=== PATIENT | female | born 2005 | race Caucasian/White ===

== ENCOUNTER 2023-01-15 14:18 | Emergency (ER) | payer OTHER, SELFPAY ==
[2023-01-15 14:29] VITALS: BP 122/83; PULSE 78; RESP 16; TEMP 36.8; O2SAT 98; BMI 31.2
--- NOTE | 2023-01-15 14:43 | ED_ITS ---
HPI - Abdominal Pain General Chief Complaint: Abdominal Pain Stated Complaint: ABD PAIN Time Seen by Provider: 01/15/23 14:32 Source: patient Mode of arrival: walk-in Limitations: no limitations History of Present Illness HPI narrative: 17-year-old female presents with abdominal pain and spent in random spots for the past couple days. She states that it was in her right lower quadrant, but this has resolved and is now in the right upper quadrant. She states that she has been very gassy. She has a Nexplanon and does not have menstrual periods. She complains of chills and a couple episodes of watery diarrhea. Denies fever, back pain, dysuria, n/v, SOB or CP Related Data Home Medications Medication Instructions Recorded Confirmed No Known Home Medications 01/15/23 01/15/23 Allergies Allergy/AdvReac Type Severity Reaction Status Date / Time No Known Drug Allergies Allergy Verified 01/15/23 14:28 Review of Systems ROS Status of ROS 10 or more systems reviewed and unremarkable except as noted in history and below PFSH PFS Social History Smoking status: Light tobacco smoker Exam Narrative Exam Narrative: General: A&Ox3, no distress, talking in full an complete sentences skin: warm, dry, intact head: normocephalic, atraumatic eyes: EOMI nose: nares patent neck: supple, trachea midline respiratory: non-labored extremities: FROM x 4, strength +5/5 abd: soft, NT neuro: A&Ox3 psych: appropriate mood and affect, cooperative Constitutional Vital Signs, click to edit/add: Last Vital Signs Temp 98.3 F 01/15/23 14:29 Pulse 78 01/15/23 14:29 Resp 16 01/15/23 14:29 BP 122/83 01/15/23 14:29 Pulse Ox 98 01/15/23 14:29 O2 Del Method Room Air 01/15/23 14:29 Course Vital Signs Vital signs: Vital Signs Temperature 98.3 F 01/15/23 14:29 Pulse Rate 78 01/15/23 14:29 Respiratory Rate 16 01/15/23 14:29 Blood Pressure 122/83 01/15/23 14:29 Pulse Oximetry 98 01/15/23 14:29 Oxygen Delivery Method Room Air 01/15/23 14:29 Temperature 98.3 F 01/15/23 14:29 Pulse Rate 78 01/15/23 14:29 Respiratory Rate 16 01/15/23 14:29 Blood Pressure 122/83 01/15/23 14:29 Pulse Oximetry 98 01/15/23 14:29 Oxygen Delivery Method Room Air 01/15/23 14:29 MDM - Abdominal Pain MDM Narrative Medical decision making narrative: No acute findings on final read of abdomen x-ray. She does have gas on the x- ray in the area that she is complaining of pain. UA negative. Patient was wa iting for her COVID results and due to the wait time, she left without telling anyone. I was not able to tell her her COVID results or give her discharge instructions. Lab Data Labs: Lab Results 01/15/23 Range/Units 14:50 Urine Color Yellow (YELLOW) Urine Clarity Clear (CLEAR) Urine pH 6.0 (5.0-9.0) Ur Specific [place] 1.025 (1.005-1.025) Urine Protein Negative (NEG/TRACE) mg/dL Urine Glucose (UA) Negative (NEGATIVE) mg/dL Urine Ketones Trace A (NEGATIVE) mg/dL Urine Occult Blood Trace-i (NEGATIVE) Urine Nitrite Negative (NEGATIVE) Urine Bilirubin Negative (NEGATIVE) Urine Urobilinogen 0.2 (0.2-1.0) EU/dL Ur Leukocyte Esterase Negative (NEGATIVE) Urine RBC 0-2 (0-2) #/HPF Urine WBC 0-2 A (NONE SEEN) #/HPF Ur Squamous Epith Cells Few A (NONE/RARE) #/LPF Urine Crystals None seen (None Seen) #/HPF Urine Bacteria Small A (NONE SEEN) #/HPF Urine Casts None seen (NONE SEEN) #/LPF Urine Mucus None seen (NONE SEEN) Ur Culture Indicated? Yes Urine HCG, Qual Negative (NEGATIVE) SARS-CoV-2 (PCR) Negative (NEGATIVE) Discharge Plan Discharge Chief Complaint: Abdominal Pain Clinical Impression: Abdominal pain Qualifiers: Abdominal location: right upper quadrant Qualified Code(s): R10.11 - Right upper quadrant pain Patient Disposition: Home, Self-Care Condition: Good Mode of Transportation: Private Vehicle Prescriptions / Home Meds: No Action No Known Home Medications Instructions: Abdominal Pain (ED) Stand Alone Forms: Portal Instructions Referrals: Physician,Non-Staff, MD [Primary Care Provider] - 1 week
--- NOTE | 2023-01-15 15:00 | XR_ITS ---
[facility] [place] [address] Patient Name: PAUL FERGUSON MRN: [id number] date: 2005 Sex: F Assigned Patient Location: ER Current Patient Location: ER Accession/Order Number: [id number] Exam Date: 01/15/2023 14:55 Report Date: 01/15/2023 15:15 At the request of: SHELTON CLAROS Procedure: XR abdomen 1V EXAMINATION: XR abdomen 1V, [id number] HISTORY: abd pain COMPARISON: None. FINDINGS: Nonobstructive bowel gas pattern. No discrete pneumoperitoneum, pneumatosis, or portal venous gas within the limitations of this single view radiograph. No abnormal soft tissue calcifications. Stool burden is average. Possible pseudoarticulation of the left transverse process of L5 with the sacrum which can be a source of back pain. XR/XR abdomen 1V IMPRESSION: No acute intra-abdominal abnormality demonstrated. Electronically authenticated by: SANJEEV ALEXANDRE Date: 01/15/2023 15:15
[2023-01-15 15:04] LABS: Bilirubin Urine NEGATIVE (NEGATIVE); Blood Urine TRACE-I (NEGATIVE); Clarity Urine CLEAR (CLEAR); Color Urine YELLOW (YELLOW); Glucose Urine UA NEGATIVE (NEGATIVE); Ketones Urine TRACE mg/dL (NEGATIVE); Leukocyte Esterase Urine NEGATIVE (NEGATIVE); Nitrite Urine NEGATIVE (NEGATIVE); Protein Urine NEGATIVE (NEG/TRACE); Specific Gravity Urine 1.025 (1.005-1.025); Urobilinogen Urine 0.2 EU/dL (0.2-1.0)
[2023-01-15 15:29] LABS: Bacteria Urine SMALL #/HPF (NONE SEEN); WBC Urine 0-2 #/HPF (NONE SEEN)
[2023-01-15 15:30] LABS: RBC Urine 0-2 #/HPF (0-2)
[2023-01-15 15:31] LABS: Cast Seen? NONE SEEN #/LPF (NONE SEEN); Crystals Seen? None Seen #/HPF (None Seen); Mucus Urine NONE SEEN (NONE SEEN); Squamous Epithelial Cell Urine FEW #/LPF (NONE/RARE); Urine Culture Indicated YES
[2023-01-15 16:11] LABS: HCG Qualitative Urine* NEGATIVE (NEGATIVE)
[2023-01-15 16:27] LABS: SARS-CoV-2 Ag NEGATIVE (NEGATIVE)
[2023-01-16 14:39] LABS: SARS-CoV-2 NAA INVALID (NOT DETECTE)
== END 2023-01-15 16:37 | disposition home or self-care (01) ==
PROVIDERS: Physician Assistant; Emergency Provider Emergency Medicine
DX: R10.11 Right upper quadrant pain (principal); F17.210 Nicotine dependence, cigarettes, uncomplicated; Z20.822 Contact with and (suspected) exposure to COVID-19; Z97.5 Presence of (intrauterine) contraceptive device
CPT/HCPCS: 74018; 81001; 84703; 87086; 87635; 87811; 99285; U0003

== ENCOUNTER 2023-05-22 20:12 | Emergency (ER) | payer MEDICAID, SELFPAY ==
[2023-05-22 20:15] VITALS: BP 131/87; PULSE 87; RESP 16; TEMP 36.8; O2SAT 98
--- NOTE | 2023-05-22 20:26 | PC.NURSE ---
pt states having slurred speech with numbness in hands, has been to 2 different ER's re: these symptoms and states no dx was given. No slurred speech heard during assessment, pt appears anxious in triage crying, when paper work taken for pt to sign for medical records from other ER's this week pt was much calmer in waiting room.
--- NOTE | 2023-05-22 21:00 | ED.GENADUL1 ---
Documented by User: LEONIDES Be 05/22/23 21:00 HPI - General Adult General Chief complaint: Headache Stated complaint: Headache Time Seen by Provider: 05/22/23 20:54 Source: patient Mode of arrival: walk-in Related Data Home Medications Medication Instructions Recorded Confirmed No Known Home Medications 01/15/23 01/15/23 Allergies Allergy/AdvReac Type Severity Reaction Status Date / Time No Known Drug Allergies Allergy Verified 01/15/23 14:28 PFSH PFSH Social History Smoking status: Light tobacco smoker Exam Constitutional Vital Signs, click to edit/add: Last Vital Signs Temp 98.2 F 05/22/23 20:15 Pulse 87 05/22/23 20:15 Resp 16 05/22/23 20:15 BP 131/87 05/22/23 20:15 Pulse Ox 98 05/22/23 20:15 O2 Del Method Room Air 05/22/23 20:15 Course Vital Signs Vital signs: Vital Signs Temperature 98.2 F 05/22/23 20:15 Pulse Rate 87 05/22/23 20:15 Respiratory Rate 16 05/22/23 20:15 Blood Pressure 131/87 05/22/23 20:15 Pulse Oximetry 98 05/22/23 20:15 Oxygen Delivery Method Room Air 05/22/23 20:15 Temperature 98.2 F 05/22/23 20:15 Pulse Rate 87 05/22/23 20:15 Respiratory Rate 16 05/22/23 20:15 Blood Pressure 131/87 05/22/23 20:15 Pulse Oximetry 98 05/22/23 20:15 Oxygen Delivery Method Room Air 05/22/23 20:15 Medical Decision Making Lab Data Labs: Lab Results 05/22/23 Range/Units 21:52 Urine HCG, Qual Negative (NEGATIVE) Imaging Data CT scan - head: Radiologist's impression: ITS Impressions Head CT 05/22/23 21:33 IMPRESSION: 1. No acute intracranial abnormality. No hemorrhage or mass effect. Electronically authenticated by: RUSSEL HARRELL Date: 05/22/2023 22:22 Discharge Plan Discharge Chief Complaint: Headache Clinical Impression: Headache Patient Disposition: Home, Self-Care Time of Disposition Decision: 22:36 Condition: Good Mode of Transportation: Private Vehicle Prescriptions / Home Meds: No Action No Known Home Medications Instructions: Acute Headache (ED) Stand Alone Forms: Portal Instructions Referrals: Physician,Non-Staff, [Primary Care Provider] - 1 week Documented by User: Mu Barajas MD 05/22/23 22:38 HPI - General Adult General Chief complaint: Headache Stated complaint: Headache Time Seen by Provider: 05/22/23 20:54 History of Present Illness HPI narrative: 17-year-old female presents with numerous complaints. Her main complaint tonight is her headache she's had for several days. It's frontal and there was no trauma or fever or any sort of injury. She's also had ongoing gastrointestinal issues and was at two other emergency departments within the last week. Each of those had negative workups and she had a rectal exam that showed no blood in her stool. She is scheduled to see a [employer] worker for the 1st time on June 05. She told the nurse that her main worry is that she has colon cancer. Related Data Home Medications Medication Instructions Recorded Confirmed No Known Home Medications 01/15/23 01/15/23 Allergies Allergy/AdvReac Type Severity Reaction Status Date / Time No Known Drug Allergies Allergy Verified 01/15/23 14:28 Review of Systems ROS Narrative A ten point review of systems is negative except as noted above. PFSH PFSH Social History Smoking status: Light tobacco smoker Exam Narrative Exam Narrative: Nurses note and vital signs reviewed and patient is not hypoxic. General: The patient appears well and in no apparent distress. Patient is resting comfortably on cart. Skin: Warm, dry, no pallor noted. There is no rash noted. Head: Normocephalic, atraumatic Eye: Normal conjunctiva, no drainage, neck supple, no nuchal rigidity Ears, Nose, Mouth, and Throat: oral mucosa is moist. Nares patent. she was concerned about her left ear. There is no erythema or mass or swelling. Cardiovascular: Regular Rate and Rhythm Respiratory: Patient is in no distress, no accessory muscle use, lungs are clear to auscultation, no wheezing, rales or rhonchi Back: non-tender GI: no tenderness to palpation, no masses appreciated. No rebound, guarding, or rigidity noted. Musculoskeletal: The patient has no evidence of calf tenderness, no pitting edema, symmetrical pulses noted bilaterally Neurological: A&O, normal speech Psychiatric: Cooperative, tearful Constitutional Vital Signs, click to edit/add: Last Vital Signs Temp 98.2 F 05/22/23 20:15 Pulse 87 05/22/23 20:15 Resp 16 05/22/23 20:15 BP 131/87 05/22/23 20:15 Pulse Ox 98 05/22/23 20:15 O2 Del Method Room Air 05/22/23 20:15 Course Vital Signs Vital signs: Vital Signs Temperature 98.2 F 05/22/23 20:15 Pulse Rate 87 05/22/23 20:15 Respiratory Rate 16 05/22/23 20:15 Blood Pressure 131/87 05/22/23 20:15 Pulse Oximetry 98 05/22/23 20:15 Oxygen Delivery Method Room Air 05/22/23 20:15 Temperature 98.2 F 05/22/23 20:15 Pulse Rate 87 05/22/23 20:15 Respiratory Rate 16 05/22/23 20:15 Blood Pressure 131/87 05/22/23 20:15 Pulse Oximetry 98 05/22/23 20:15 Oxygen Delivery Method Room Air 05/22/23 20:15 Medical Decision Making MDM Narrative Medical decision making narrative: CT of brain is negative and she was reassured. She is going to see her gastrointestinal specialist on the prefers. Treatment diagnosis and follow-up were discussed thoroughly with the patient. Differential Diagnosis Differential Diagnosis: general headache, tension headache, sinus infection Medical Records Medical records reviewed: Yes I reviewed the patient's medical records Lab Data Lab results reviewed: Yes I reviewed the patient's lab results Labs: Lab Results 05/22/23 Range/Units 21:52 Urine HCG, Qual Negative (NEGATIVE) Imaging Data CT scan - head: Radiologist's impression: ITS Impressions Head CT 05/22/23 21:33 IMPRESSION: 1. No acute intracranial abnormality. No hemorrhage or mass effect. Electronically authenticated by: RUSSEL HARRELL Date: 05/22/2023 22:22 Discharge Plan Discharge Chief Complaint: Headache Clinical Impression: Headache Patient Disposition: Home, Self-Care Time of Disposition Decision: 22:36 Condition: Good Mode of Transportation: Private Vehicle Prescriptions / Home Meds: No Action No Known Home Medications Instructions: Acute Headache (ED) Stand Alone Forms: Portal Instructions Referrals: Physician,Non-Staff, MD [Primary Care Provider] - 1 week
--- NOTE | 2023-05-22 21:33 | CT_ITS ---
The [address] [address] Patient Name: PAUL FERGUSON MRN: [id number] date: 2005 Sex: F Assigned Patient Location: ER Current Patient Location: Accession/Order Number: [id number] Exam Date: 05/22/2023 00:06 Report Date: 05/22/2023 22:22 At the request of: ELISABETH JEAN Procedure: CT head/brain wo con INDICATION: 17 years old; Female. Headache for one week. Weakness, dizziness, and confusion. TECHNIQUE: CT Head (ax/cor/sag reformats). Ionizing radiation dose reduced via iterative reconstruction/FBP blend and body size kV/mA adjustment. Comparison: None FINDINGS: POSTOPERATIVE CHANGES: None. BRAIN PARENCHYMA: No focal lesions. No mass effect. No midline shift or herniation. No intraparenchymal or extra-axial hemorrhage. Normal cartwright/white differentiation. VENTRICLES/EXTRA-AXIAL SPACES: Normal for patient's age. SINUSES/MASTOIDS: The visualized sinuses are clear. The maxillary sinuses are not entirely visible in this routine CT of the head. Mastoids and middle ears are clear. MSK: No displaced or depressed calvarial fracture. OTHER: No hyperdense intraluminal thrombus. CT/CT head/brain wo con IMPRESSION: 1. No acute intracranial abnormality. No hemorrhage or mass effect. Electronically authenticated by: RUSSEL HARRELL Date: 05/22/2023 22:22
[2023-05-22 22:02] LABS: HCG Qualitative Urine* NEGATIVE (NEGATIVE)
[2023-05-22 22:42] VITALS: BP 122/81; PULSE 80; O2SAT 98
== END 2023-05-22 22:44 | disposition home or self-care (01) ==
PROVIDERS: Emergency Provider Emergency Medicine
DX: R51.9 Headache, unspecified (principal); F17.210 Nicotine dependence, cigarettes, uncomplicated
CPT/HCPCS: 70450; 84703; 99284

== ENCOUNTER 2023-06-26 22:40 | Emergency (ER) | payer BC, SELFPAY ==
[2023-06-26 22:47] VITALS: BP 121/81; PULSE 71; RESP 16; TEMP 36.4; O2SAT 98; BMI 24.6
--- OUTSIDE RECORDS SUMMARY | 2023-06-26 22:49 | XMS_ITS | CCD ---
Author Name Unknown Address [address] [place] [address] Organization [facility] Care Team Providers Care [employer] Member Name Role Phone Rick LOPEZ Primary Care Physician [phone] MARY HARRIS Attending Unavailable MARVIN CUEVAS Referring Unavailable RICK LOPEZ Primary Care Unavailable MARVIN CUEVAS Primary Care Physician Christine KNIGHT Unavailable NO FAMILY, PHYSICIAN Primary Care Provider Unava [facility] [place] Emergency Provider PRANAY VENTURA Attending Unavailable CHRISTINE KNIGHT Attending Unavailable NO FAMILY, PHYSICIAN Primary Care Unavailable America Crow Attending Unavailable America Crow Admitting Unavailable George Mills Attending Unavailable Kan Díaz Attending Unavailable Svitlana Young Attending Unavaila MARVIN Shen Attending Unavailable MARVIN CUEVAS Referring Unavailable MARVIN CUEVAS Attending Unavailable MARVIN CUEVAS Admitting Unavailable Tr Herr Attending Unavailable Allergies Allergy Classification Reported Allergen(s) Allergy Type Date of Onset Reaction(s) Facility (1 source) No Known Medication Allergies; Translations: [No Known Medication Allergies] Propensity to adverse reactions (disorder) [facility] Repository Medications Current Medications Medication Drug Class(es) Dates Sig (Normalized) Sig (Original) dicyclomine hydrochloride 10 mg oral capsule (4 sources) Anticholinergic Start: 05-19-2023 take 1 capsule by mouth three times daily Dicyclomine (Bentyl) 10 mg Capsule Active 10 MG PO Three times daily May 19, 2023 12:00am Start: 04-30-2023 End: 05-07-2023 take 1 capsule by mouth four times daily Bentyl 10 mg Cap 10 mg = 1 cap(s), Oral, QID, X 7 day(s), # 28 cap(s), Refills(s) 0, Pharmacy: [facility] #[id number], 156, cm, 04/29/23 23:04:00 EST, Height/Length Dosing, 65, kg, 04/29/23 23:04:00 EST, Weight Dosing Start Date: 04/30/23 Stop Date: 05/07/23 Status: Ordered Start: 11-21-2021 End: 11-28-2021 take 1 capsule by mouth four times daily as needed Bentyl 10 mg Cap 10 mg = 1 cap(s), Oral, QID, PRN Irritable bowel symptoms, X 7 day(s), # 30 cap(s), Refills(s) 0, Pharmacy: [facility] #[id number], 152, cm, 11/20/21 23:17:00 EDT, Height/Length Dosing, 68, kg, 11/20/21 23:17:00 EDT, Weight Dosing Start Date: 11/21/21 Stop Date: 11/28/21 Status: Ordered hydrOXYzine hydrochloride 25 mg oral tablet (1 source) Antihistamine Start: 05-19-2023 take 25 mg by mouth three times daily Hydroxyzine Hcl Active 25 MG PO Three times daily May 19, 2023 12:00am ondansetron 4 mg disintegrating oral tablet (1 source) Serotonin-3 Receptor Antagonist Start: 05-19-2023 take 4 mg by mouth every eight hours Ondansetron Active 4 MG PO Q8H 9 3 May 19, 2023 12:00am Zofran ODT 4 mg Tab-Dis (8 sources) Start: 11-21-2021 take 1 tablet by mouth every eight hours as needed for nausea Zofran ODT 4 mg Tab-Dis 4 mg = 1 tab(s), Oral, q8hr, PRN Nausea/Vomiting, # 16 tab(s), Refills(s) 0, Pharmacy: [facility] #[id number], 152, cm, 11/20/21 23:17:00 EDT, Height/Length Dosing, 68, kg, 11/20/21 23:17:00 EDT, Weight Dosing Start Date: 11/21/21 Status: Ordered Problems Problem Classification Problem Date Documented Da te Episodic/Chronic Abdominal pain (2 sources) Abdominal pain; Translations: [Unspecified abdominal pain] Onset: 11-21-2021 Episodic Anxiety disorders (1 source) Anxiety disorder; Translations: [Anxiety disorder, unspecified] Onset: 04-30-2023 Chronic Cardiac dysrhythmias (1 source) Palpitations; Translations: [Palpitations] Onset: 04-30-2023 Episodic Fluid and electrolyte disorders (1 source) Hypokalemia; Translations: [Hypokalemia] Onset: 11-21-2021 Episodic Malaise and fatigue (1 source) Other fatigue; Translations: [Other fatigue] Onset: 05-19-2023 Episodic Menstrual disorders (1 source) Irregular periods; Translations: [Irregular menstruation, unspecified] 05-19-2023 Chronic Nausea and vomiting (1 source) Nausea; Translations: [Nausea] Onset: 11-21-2021 Episodic Nonspecific chest pain (6 sources) Chest pain; Translations: [Chest pain, unspecified] Onset: 06-03-2022 Episodic Other endocrine disorders (8 sources) Hypoglycemia 03-08-2021 Chronic Other gastrointestinal disorders (1 source) Diarrhea; Translations: [Diarrhea, unspecified] 05-19-2023 Episodic Other gastrointestinal disorders (1 source) Diarrhea, unspecified; Translations: [Diarrhea, unspecified] Onset: 05-19-2023 Episodic Other skin disorders (8 sources) Acne 03-08-2021 Episodic Substance-related disorders (1 source) Smoker 04-29-2023 Chronic Comment on above: Added secondary to d ocumentation in Social History. Viral infection (1 source) Viral disease; Translations: [Viral infection, unspecified] Onset: 04-30-2023 Episodic Results Test Name Value Interpretation Reference Range Facility Gastroenterology Office/Clin ic Noteon 06-05-2023 Gastroenterology Office/Clinic Note Chief Complaint abdominal pain HPI Staff Patient is a 17 year old female who presents today for a f/u from [facility] 05/16/23 for abdominal pain, chest pain and RUQ pain. C/o - unexplained menstrual bleeding, last period was abnormally heavy. Will have random clenching of urine/feces. Urgency with urine and stool. Abdomen/stomach pain (randomly). Alternating constipation/diarrhe a. Hx of childhood constipation. She says sometimes she feels like her stomach is pulsing . Excessive stomach noises. Slight weight loss. Fatigue/lightheadedn ess. Loss of appetite. Bloating after eating. Recal burning on occasion. Random maroon/dark red blood when wiping. Recently she has had some gugling in her throat that feels like a burp that will not come out. ED note: ED Course: 17-year-old female reports to the emergency department with chief complaint of an anxiety like state. Reports this has been ongoing issue for her. Reports very fatigued as well. States he is not following up with any primary care doctor. Physical exam of the patient, the patient is very hysterical throughout the examination. No acute findings on physical exam. She is very anxious. Due to her concerns, we did do some basic labs as well as chest x-ray. Lab reviewed and noted. No acute changes seen. Chest x-ray negative as well. We did give her Ativan, which did greatly improve her symptoms. Patient reported and stated that she did feel much improved. Due to her symptoms, discussed that we will start her on hydroxyzine to see if this helps with any type of anxiety for her. Patient also prescribed Bentyl for her abdominal pain but states that is chronic for her. Wants a GI follow-up. Abdominal pain: When did you first have this pain: Over the last year - worse in the last few weeks Quality (sharp, dull): feels like periods cramps - sometimes gets right sides sharp pain - sometimes a burning sensation under her RUQ ribcage area. Constant or comes or go: comes and goes location and radiation: all over abdomen Relation to food: unknown - usually pain in more at night Improving or worsening factors factors: When she lays down at night it is usually worse. Previous work up: EGD: no Colonoscopy: no Imaging: Chest XR in ER: IMPRESSION: There are no acute cardiopulmonary changes. CT abdomen/pelvis 01/18/23: IMPRESSION: Possible mild nonspecific colitis versus colonic underdistention. Laboratory Results CBC CMP PT PTT Basophil Absolute: 0 E9/L (05/16/23) A/G Ratio: 2 (04/29/23) INR: 1 (04/29/23) PTT: 38.8 second(s) High (04/29/23) Basophil Auto: 0.4 % (05/16/23) AGAP: 14 mEq/L (05/16/23) PT: 11.4 second(s) (04/29/23) Eos Absolute: 0 E9/L (05/16/23) Albumin Lvl: 5.1 gm/dL High (04/29/23) Eos Auto: 0.2 % (05/16/23) Alk Phos: 83 Int._Unit/L (04/29/23) Hct: 43.6 % (05/16/23) ALT: 14 Int._Unit/L (04/29/23) HGB: 14.7 gm/dL (05/16/23) AST: 15 Int._Unit/L (04/29/23) Lymph Absolute: 1.8 E9/L (05/16/23) Bili Total: 0.3 mg/dL (04/29/23) Lymph Auto: 21.5 % (05/16/23) BUN: 9 mg/dL (05/16/23) MCH: 29.8 pg (05/16/23) BUN/Creat Ratio: 11 (05/16/23) MCHC: 33.6 gm/dL (05/16/23) Calcium Lvl: 9.6 mg/dL (05/16/23) MCV: 88.8 fL (05/16/23) Chloride: 106 mmol/L (05/16/23) Bradford Absolute: 0.5 E9/L (05/16/23) CO2: 21 mmol/L (05/16/23) Bradford Auto: 6.3 % (05/16/23) Creatinine: 0.8 mg/dL (05/16/23) MPV: 6.3 fL Low (05/16/23) Globulin: 2.5 gm/dL (04/29/23) Neutro Absolute: 5.9 E9/L (05/16/23) Glucose Lvl: 82 mg/dL (05/16/23) Neutro Auto: 71.6 % (05/16/23) Potassium Lvl: 3.6 mmol/L (05/16/23) Platelet: 397 E9/L (05/16/23) Sodium Lvl: 137 mmol/L (05/16/23) RBC: 4.9 E12/L (05/16/23) Total Protein: 7.6 gm/dL (04/29/23) RDW: 12.3 % (05/16/23) WBC: 8.3 E9/L (05/16/23) History of Present Illness in addition, reports blood in stool presented pictures in clinic , small clot noted in one picture also when she wipes, she sees small amount Occasional pain/burning in her anus has 2-3 BM a day, watery stool, alternate with constipation occasionally, 1 BM every week appetite is good smokes marijuana, every day no alcohol or tobacco Review of Systems PHQ Score Initial Depression Screen Score: 0 SCORE Physical Exam Vitals & Measurements HR: 80(Peripheral) RR: 18 BP: 128/86 HT: 61 in HT: 156 cm WT: 60 kg WT: 132 lb BMI: 24.65 General: in Nad Abdomen: Soft, NTND Assessment/Plan 1. Abdominal pain (R10.9: Unspecified abdominal pain) I suspect overall this is a form of IBS with Claribel terminating diarrhea and constipation, CT from January did not show acute findings except for possible thickening in the colon that could be artifact, labs recently were unremarkable, no anemia, normal liver enzymes We had long discussion about IBS, given the blood in the stool although it is minimal it is reasonable to get a colonoscopy which is scheduled at [facility]. It is also reasonable to get an EGD with gastric biopsy at the same time Afte (more content not included)... Normal [facility] Comment on above: Result Comment: Elec tronically Signed By: Hannah GRAYSON, Svitlana Hartley\.br\Date and Time Signed: 06/05/23 12:43 EST Auth for Release of Medical Recordson 05-23-2023 Auth for Release of Medical Records [id number] Normal [facility] Alanine aminotransferase [En zymatic activity/volume] in Serum or PlasmaOrdered By: America Crow on 05-19-2023 ALT [Catalytic activity/Vol] 15 U/L 7-52 [facility] Albumin [Mass/volume] in Ser um or Plasma by Bromocresol green (BCG) dye binding methoOrdered By: America Crow on 05-19-2023 Albumin BCG dye [Mass/Vol] 4.8 g/dL 3.5-5.7 [facility] Alkaline phosphatase [Enzyma tic activity/volume] in Serum or PlasmaOrdered By: America rCow on 05-19-2023 ALP [Catalytic activity/Vol] 80 U/L 34-104 [facility] Aspartate aminotransferase [ Enzymatic activity/volume] in Serum or PlasmaOrdered By: America Crow on 05-19-2023 AST [Catalytic activity/Vol] 15 U/L 13-39 [facility] Automated erythrocytes count in urine sediment (number/area)Ordered By: America Crow on 05-19-2023 RBC Auto (Urine sed) [#/Area] 0-1 [HPF] 0-4 [facility] Automated leukocytes count i n urine sediment (number/area)Ordered By: America Crow on 05-19-2023 WBC Auto (Urine sed) [#/Area] 0-1 [HPF] 0-4 [facility] Basophils Auto (Bld) [#/Vol] Ordered By: America Crow on 05-19-2023 Basophils (Bld) [#/Vol] 0.1 10*3/uL 0.0-0.2 [facility] Basophils/100 WBC Auto (Bld) Ordered By: America Crow on 05-19-2023 Basophils/100 WBC (Bld) 1.2 % . [facility] Bilirubin Auto test strip Ql (U)Ordered By: America Crow on 05-19-2023 Bilirubin Ql (U) Negative Negative [facility] Bilirubin.total [Mass/volume ] in Serum or PlasmaOrdered By: America Crow on 05-19-2023 Bilirubin [Mass/Vol] 0.5 mg/dL 0.3-1.0 [facility] Calcium [Mass/volume] in Ser um or PlasmaOrdered By: America Crow on 05-19-2023 Calcium [Mass/Vol] 9.4 mg/dL 8.6-10.3 [facility] Carbon dioxide, total [Moles /volume] in Serum or PlasmaOrdered By: America Crow on 05-19-2023 CO2 [Moles/Vol] 22.1 mmol/L 21.0-31.0 [facility] Chloride [Moles/volume] in S elana or PlasmaOrdered By: America Crow on 05-19-2023 Chloride [Moles/Vol] 107 mmol/L 98-107 [facility] Complete Blood Count Auto Di ffon 05-19-2023 Basophils (Bld) [#/Vol] 0.1 10*3/uL Normal 0.0-0.2 [facility] Comment on above: Result Comment: PERF ORMED BY: [place] [address] PATHOLOGIST DIRECTOR OF [employer]ETING [employer] LIBBY DAVIS M.D. Performed By: #### C MP, TSH3, CBC, T4F, LIPASE #### [address] Basophils/100 WBC (Bld) 1.2 % Normal . [facility] Comment on above: Performed By: #### C MP, TSH3, CBC, T4F, LIPASE #### [address] Eosinophils (Bld) [#/Vol] 0.0 10*3/uL Normal 0.0-0.45 [facility] Comment on above: Performed By: #### C MP, TSH3, CBC, T4F, LIPASE #### [address] Eosinophils/100 WBC (Bld) 0.2 % Normal . [facility] Comment on above: Performed By: #### C MP, TSH3, CBC, T4F, LIPASE #### [address] Erythrocyte distribution width (RBC) [Ratio] 11.9 % Normal 11.9-15.3 [facility] Comment on above: Performed By: #### C MP, TSH3, CBC, T4F, LIPASE #### [address] Hematocrit (Bld) [Volume fraction] 40.0 % Normal 34.0-46.4 [facility] Comment on above: Performed By: #### C MP, TSH3, CBC, T4F, LIPASE #### [address] Hemoglobin (Bld) [Mass/Vol] 13.7 g/dL Normal 11.8-15.4 [facility] Comment on above: Performed By: #### C MP, TSH3, CBC, T4F, LIPASE #### [address] Lymphocytes (Bld) [#/Vol] 1.5 10*3/uL Normal 1.00-4.8 [facility] Comment on above: Performed By: #### C MP, TSH3, CBC, T4F, LIPASE #### [address] Lymphocytes/100 WBC (Bld) 15.6 % Normal . [facility] Comment on above: Performed By: #### C MP, TSH3, CBC, T4F, LIPASE #### [address] MCH (RBC) [Entitic mass] 30.5 pg Normal 24.7-34.3 [facility] Comment on above: Performed By: #### C MP, TSH3, CBC, T4F, LIPASE #### [address] MCV (RBC) [Entitic vol] 88.9 fL Normal 80-100 [facility] Comment on above: Performed By: #### C MP, TSH3, CBC, T4F, LIPASE #### [address] Mean Corpuscular HGB Conc 34.3 g/dL Normal 32.0-35.0 [facility] Comment on above: Performed By: #### C MP, TSH3, CBC, T4F, LIPASE #### [address] Monocytes (Bld) [#/Vol] 0.4 10*3/uL Normal 0.0-0.8 [facility] Comment on above: Performed By: #### C MP, TSH3, CBC, T4F, LIPASE #### [address] Monocytes/100 WBC (Bld) 17.60 % Normal 0.00-20.00 [facility] Comment on above: Performed By: #### C MP, TSH3, CBC, T4F, LIPASE #### [address] Monocytes/100 WBC (Bld) 4.5 % Normal . [facility] Comment on above: Performed By: #### C MP, TSH3, CBC, T4F, LIPASE #### [address] Neutrophils (Bld) [#/Vol] 7.6 10*3/uL Normal 1.8-7.7 [facility] Comment on above: Performed By: #### C MP, TSH3, CBC, T4F, LIPASE #### [address] Neutrophils/100 WBC (Bld) 78.5 % Normal . [facility] Comment on above: Performed By: #### C MP, TSH3, CBC, T4F, LIPASE #### [address] NRBC% 0.1 /100{WBC} Normal 0-0.5 [facility] Comment on above: Performed By: #### C MP, TSH3, CBC, T4F, LIPASE #### [address] Platelet mean volume (Bld) [Entitic vol] 6.6 fL Normal 6.3-10.7 [facility] Comment on above: Performed By: #### C MP, TSH3, CBC, T4F, LIPASE #### [place] [address] [place] Platelets (Bld) [#/Vol] 389 10*3/uL Normal 150-450 [facility] Comment on above: Performed By: #### C MP, TSH3, CBC, T4F, LIPASE #### [address] RBC (Bld) [#/Vol] 4.50 10*6/uL Normal 3.60-5.00 [facility] Comment on above: Performed By: #### C MP, TSH3, CBC, T4F, LIPASE #### [address] WBC (Bld) [#/Vol] 9.6 10*3/uL Normal 3.8-11.6 [facility] Comment on above: Performed By: #### C MP, TSH3, CBC, T4F, LIPASE #### [address] Comprehensive Metabolic Pane jackson 05-19-2023 Albumin [Mass/Vol] 4.8 g/dL Normal 3.5-5.7 [facility] Comment on above: Performed By: #### C MP, TSH3, CBC, T4F, LIPASE #### [address] Albumin/Globulin [Mass ratio] 1.8 {ratio} Normal [facility] Comment on above: Performed By: #### C MP, TSH3, CBC, T4F, LIPASE #### [address] ALP [Catalytic activity/Vol] 80 U/L Normal 34-104 [facility] Comment on above: Performed By: #### C MP, TSH3, CBC, T4F, LIPASE #### [address] ALT [Catalytic activity/Vol] 15 U/L Normal 7-52 [facility] Comment on above: Performed By: #### C MP, TSH3, CBC, T4F, LIPASE #### [address] Anion gap [Moles/Vol] 12.8 mmol/L Normal 6.0-15.0 [facility] Comment on above: Performed By: #### C MP, TSH3, CBC, T4F, LIPASE #### [facility] [address] [place] [address] AST [Catalytic activity/Vol] 15 U/L Normal 13-39 [facility] Comment on above: Performed By: #### C MP, TSH3, CBC, T4F, LIPASE #### [address] Bilirubin [Mass/Vol] 0.5 mg/dL Normal 0.3-1.0 [facility] Comment on above: Performed By: #### C MP, TSH3, CBC, T4F, LIPASE #### [address] Calcium [Mass/Vol] 9.4 mg/dL Normal 8.6-10.3 [facility] Comment on above: Performed By: #### C MP, TSH3, CBC, T4F, LIPASE #### [address] Chloride [Moles/Vol] 107 mmol/L Normal 98-107 [facility] Comment on above: Performed By: #### C MP, TSH3, CBC, T4F, LIPASE #### [address] CO2 [Moles/Vol] 22.1 mmol/L Normal 21.0-31.0 [facility] Comment on above: Performed By: #### C MP, TSH3, CBC, T4F, LIPASE #### [address] Creatinine [Mass/Vol] 0.80 mg/dL Normal 0.60-1.20 [facility] Comment on above: Performed By: #### C MP, TSH3, CBC, T4F, LIPASE #### [address] Creatinine Clr Calc Pharmacy 96.78 Normal [facility] Comment on above: Performed By: #### C MP, TSH3, CBC, T4F, LIPASE #### [place] [address] [place] GFR/1.73 sq M.predicted MDRD (S/P/Bld) [Vol rate/Area] mL/min/{1.73_m2} Normal [facility] Comment on above: Performed By: #### C MP, TSH3, CBC, T4F, LIPASE #### [facility] [place] [facility] [address] Globulin (S) [Mass/Vol] 2.7 g/dL Normal [facility] Comment on above: Performed By: #### C MP, TSH3, CBC, T4F, LIPASE #### [facility] [place] [facility] [address] Glucose [Mass/Vol] 81 mg/dL Normal 70-100 [facility] Comment on above: Result Comment: [facility] Glucose Reference Range is dependent on time and content of last meal. Glucose of more than 200 mg/dL in a nonstressed, ambulatory subject supports the diagnosis of Diabetes Mellitus. ADA recommended reference range Performed By: #### C MP, TSH3, CBC, T4F, LIPASE #### [facility] [place] [facility] [address] Potassium [Moles/Vol] 3.9 mmol/L Normal 3.5-5.1 [facility] Comment on above: Performed By: #### C MP, TSH3, CBC, T4F, LIPASE #### [facility] [place] [facility] [address] [place] [id number] [facility] Protein [Mass/Vol] 7.5 g/dL Normal 6.4-8.9 [facility] Comment on above: Performed By: #### C MP, TSH3, CBC, T4F, LIPASE #### [facility] [address] [place] [address] [place] Sodium [Moles/Vol] 138 mmol/L Normal 136-145 [facility] Comment on above: Performed By: #### C MP, TSH3, CBC, T4F, LIPASE #### [facility] [address] [place] [id number] [place] Urea nitrogen [Mass/Vol] 12 mg/dL Normal 7-25 [facility] Comment on above: Performed By: #### C MP, TSH3, CBC, T4F, LIPASE #### [facility] [address] Creatinine [Mass/volume] in Serum or PlasmaOrdered By: America Crow on 05-19-2023 Creatinine [Mass/Vol] 0.80 mg/dL 0.60-1.20 [facility] Dipstick and Microscopicon 0 05-19-2023 Appearance (U) Clear Normal Clear [facility] Comment on above: Order Comment: Name Collection Type:: Clean-Voided Midstream Performed By: #### U HCG, ADDONUAPLUS #### [facility] [address] [place] [address] [place] Bacteria,Urine 2+ High None Seen [facility] Comment on above: Order Comment: Name Collection Type:: Clean-Voided Midstream Performed By: #### U HCG, ADDONUAPLUS #### [facility] [address] [place] [address] [place] Bilirubin,Urine Negative Normal Negative [facility] Comment on above: Order Comment: Name Collection Type:: Clean-Voided Midstream Performed By: #### U HCG, ADDONUAPLUS #### [facility] [address] [place] [address] Color (U) Yellow Normal Yellow [facility] Comment on above: Order Comment: Name Collection Type:: Clean-Voided Midstream Performed By: #### U HCG, ADDONUAPLUS #### [facility] [address] [place] [address] [place] Glucose Ql (U) Normal Normal Normal [facility] Comment on above: Order Comment: Name Collection Type:: Clean-Voided Midstream Performed By: #### U HCG, ADDONUAPLUS #### [facility] [address] [place] [address] [place] Ketones Ql (U) Negative Normal Negative [facility] Comment on above: Order Comment: Name Collection Type:: Clean-Voided Midstream Performed By: #### U HCG, ADDONUAPLUS #### [facility] [address] [place] [address] [place] Leukocyte esterase Test strip Ql (U) Negative Normal Negative [facility] Comment on above: Order Comment: Name Collection Type:: Clean-Voided Midstream Performed By: #### U HCG, ADDONUAPLUS #### [address] Nitrite,Urine Negative Normal Negative [facility] Comment on above: Order Comment: Name Collection Type:: Clean-Voided Midstream Performed By: #### U HCG, ADDONUAPLUS #### [address] Occult Blood,Urine 1+ High Negative [facility] Comment on above: Order Comment: Name Collection Type:: Clean-Voided Midstream Performed By: #### U HCG, ADDONUAPLUS #### [address] pH (U) 7.0 [pH] Normal 5.0-9.0 [facility] Comment on above: Order Comment: Name Collection Type:: Clean-Voided Midstream Performed By: #### U HCG, ADDONUAPLUS #### [address] Protein,Urine Negative Normal Negative [facility] Comment on above: Order Comment: Name Collection Type:: Clean-Voided Midstream Performed By: #### U HCG, ADDONUAPLUS #### [facility] [address] [place] [address] RBC LM.HPF (Urine sed) [#/Area] 0 /[HPF] Normal 0-4 [facility] Comment on above: Order Comment: Name Collection Type:: Clean-Voided Midstream Performed By: #### U HCG, ADDONUAPLUS #### [facility] [address] [place] [address] Specificy [place],Urine 1.005 Normal 1.001-1.030 [facility] Comment on above: Order Comment: Name Collection Type:: Clean-Voided Midstream Performed By: #### U HCG, ADDONUAPLUS #### [address] Squamous Epithelial Cell,Urine 1-2 Normal 0-2 [facility] Comment on above: Order Comment: Name Collection Type:: Clean-Voided Midstream Performed By: #### U HCG, ADDONUAPLUS #### [address] Urobilinogen,Urine Normal Normal Normal [facility] Comment on above: Order Comment: Name Collection Type:: Clean-Voided Midstream Performed By: #### U HCG, ADDONUAPLUS #### [address] WBC LM.HPF (Urine sed) [#/Area] 0 /[HPF] Normal 0-4 [facility] Comment on above: Order Comment: Name Collection Type:: Clean-Voided Midstream Performed By: #### U HCG, ADDONUAPLUS #### [address] Eosinophils Auto (Bld) [#/Vo l]Ordered By: America Crow on 05-19-2023 Eosinophils (Bld) [#/Vol] 0.0 10*3/uL 0.0-0.45 [facility] Eosinophils/100 WBC Auto (Bl d)Ordered By: America Crow on 05-19-2023 Eosinophils/100 WBC (Bld) 0.2 % . [facility] Erythrocyte distribution wid th Auto (RBC) [Ratio]Ordered By: America Crow on 05-19-2023 Erythrocyte distribution width (RBC) [Ratio] 11.9 % 11.9-15.3 [facility] Fecal occult blood detection by immunochemistryOrdered By: America Crow on 05-19-2023 Hemoglobin.gastrointestin al Ql (Stl) [facility] Free T4 (Free Thyroxine)on 0 05-19-2023 Free T4 [Mass/Vol] 1.25 ng/dL High 0.61-1.12 [facility] Comment on above: Performed By: #### C MP, TSH3, CBC, T4F, LIPASE #### [facility] [address] [place] [address] Globulin Calc (S) [Mass/Vol] Ordered By: America Crow on 05-19-2023 Globulin (S) [Mass/Vol] 2.7 g/dL F [facility] Glucose [Mass/volume] in Ser um or PlasmaOrdered By: America Crow on 05-19-2023 Glucose [Mass/Vol] 81 mg/dL 70-100 [facility] Comment on above: ADA recommended refe rence rangeRandom Glucose Reference Range is dependent on time and content of last meal. Glucose of more than 200 mg/dL in a nonstressed, ambulatory subject supports the diagnosis of Diabetes Mellitus. HCG ( test) IA.rapi d Ql (U)Ordered By: PROVIDER TEMP on 05-19-2023 HCG ( test) Ql (U) Negative [facility] HCG,Urineon 05-19-2023 Beta HCG ( test) Ql (U) Negative Normal [facility] Comment on above: Order Comment: Name Collection Type:: Clean-Voided Midstream Result Comment: PERF ORMED BY: [place] [address] PATHOLOGIST DIRECTOR OF MARKETING AND PROMOTIONS LIBBY DAVIS M.D. Performed By: #### U HCG, ADDONUAPLUS #### [address] Hematocrit Auto (Bld) [Volum e fraction]Ordered By: America Crow on 05-19-2023 Hematocrit (Bld) [Volume fraction] 40.0 % 34.0-46.4 [facility] Hemoglobin [Mass/volume] in BloodOrdered By: America Crow on 05-19-2023 Hemoglobin (Bld) [Mass/Vol] 13.7 g/dL 11.8-15.4 [facility] Ketones Auto test strip (U) [Mass/Vol]Ordered By: America Crow on 05-19-2023 Ketones (U) [Mass/Vol] Negative Negative Fi [facility] Leukocytes [#/volume] correc landy for nucleated erythrocytes in Blood by Automated counOrdered By: America Crow on 05-19-2023 WBC corrected for nucl RBC Auto (Bld) [#/Vol] 9.6 10*3/uL 3.8-11.6 [facility] Lipaseon 05-19-2023 Lipase [Catalytic activity/Vol] 10.0 U/L Low 11.0-82.0 [facility] Comment on above: Performed By: #### C MP, TSH3, CBC, T4F, LIPASE #### [address] Lipase [Enzymatic activity/v olume] in Serum or PlasmaOrdered By: America Crow on 05-19-2023 Lipase [Catalytic activity/Vol] 10.0 U/L 11.0-82.0 [facility] Lymphocytes Auto (Bld) [#/Vo l]Ordered By: America Crow on 05-19-2023 Lymphocytes (Bld) [#/Vol] 1.5 10*3/uL 1.00-4.8 [facility] Lymphocytes/100 WBC Auto (Bl d)Ordered By: America Crow on 05-19-2023 Lymphocytes/100 WBC (Bld) 15.6 % . [facility] MCH Auto (RBC) [Entitic mass ]Ordered By: America Crow on 05-19-2023 MCH (RBC) [Entitic mass] 30.5 pg 24.7-34.3 [facility] MCHC Auto (RBC) [Mass/Vol]Or dered By: America Crow on 05-19-2023 MCHC (RBC) [Mass/Vol] 34.3 g/dL 32.0-35.0 [facility] MCV Auto (RBC) [Entitic vol] Ordered By: America Crow on 05-19-2023 MCV (RBC) [Entitic vol] 88.9 fL 80-100 F [facility] Monocyte distribution width [Entitic volume] in Blood by AutomatedOrdered By: America Crow on 05-19-2023 Monocyte distribution width Auto (Bld) [Entitic vol] 17.60 % 0.00-20.00 [facility] Monocytes Auto (Bld) [#/Vol] Ordered By: America Crow on 05-19-2023 Monocytes (Bld) [#/Vol] 0.4 10*3/uL 0.0-0.8 [facility] Monocytes/100 WBC Auto (Bld) Ordered By: America Crow on 05-19-2023 Monocytes/100 WBC (Bld) 4.5 % . [facility] Neutrophils Auto (Bld) [#/Vo l]Ordered By: America Crow on 05-19-2023 Neutrophils (Bld) [#/Vol] 7.6 10*3/uL 1.8-7.7 [facility] Neutrophils/100 WBC Auto (Bl d)Ordered By: America Crow on 05-19-2023 Neutrophils/100 WBC (Bld) 78.5 % . [facility] No Panel InformationOrdered By: America Crow on 05-19-2023 Estimated GFR (CKD-EPI) > 60.0 mL/Min [facility] Creatinine Clearance (Chem 96.78 [facility] Nucleated erythrocytes [Pres ence] in Blood by Automated countOrdered By: America Crow on 05-19-2023 Nucleated RBC Auto Ql (Bld) 0.1 /100{WBC} 0-0.5 [facility] Platelet mean volume Auto (B ld) [Entitic vol]Ordered By: America Crow on 05-19-2023 Platelet mean volume (Bld) [Entitic vol] 6.6 fL 6.3-10.7 [facility] Platelets Auto (Bld) [#/Vol] Ordered By: America Crow on 05-19-2023 Platelets (Bld) [#/Vol] 389 10*3/uL 150-450 [facility] Potassium [Moles/volume] in Serum or PlasmaOrdered By: America Crow on 05-19-2023 Potassium [Moles/Vol] 3.9 mmol/L 3.5-5.1 [facility] Protein Auto test strip (U) [Mass/Vol]Ordered By: America Crow on 05-19-2023 Protein (U) [Mass/Vol] Negative Negative [facility] Protein [Mass/volume] in Ser um or PlasmaOrdered By: America Crow on 05-19-2023 Protein [Mass/Vol] 7.5 g/dL 6.4-8.9 [facility] RBC Auto (Bld) [#/Vol]Ordere d By: America Crow on 05-19-2023 RBC (Bld) [#/Vol] 4.50 10*6/uL 3.60-5.00 [facility] Serum or plasma albumin/glob ulin mass ratioOrdered By: America Crow on 05-19-2023 Albumin/Globulin [Mass ratio] 1.8 {ratio} [facility] Serum or plasma anion gap de terminationOrdered By: America Crow on 05-19-2023 Anion gap [Moles/Vol] 12.8 mmol/L 6.0-15.0 [facility] Sodium [Moles/volume] in Ser um or PlasmaOrdered By: America Crow on 05-19-2023 Sodium [Moles/Vol] 138 mmol/L 136-145 [facility] Squamous epithelial cells de tection in urine sediment by light microscopyOrdered By: America Crow on 05-19-2023 Epithelial cells.squamous LM Ql (Urine sed) 1-2 [HPF] 0-2 [facility] Stool Occult Blood (Guaiac)o n 05-19-2023 Stool Occult Blood (Guaiac) Occult Blood Negative for Occult Blood by Guaiac Methodology Reference range = Negative PERFORMED BY: [place] [address] PATHOLOGIST DIRECTOR OF MARKETING AND PROMOTIONS LIBBY DAVIS M.D. Normal [facility] Comment on above: Performed By: #### O B(GUAIAC) #### [address] Thyroid Stimulating Hormoneo n 05-19-2023 TSH Qn 0.61 m[IU]/L Normal 0.45-5.33 [facility] Comment on above: Result Comment: PERF ORMED BY: [facility] [address] [place] [address] PATHOLOGIST DIRECTOR OF MARKETING AND PROMOTIONS LIBBY DAVIS M.D. Performed By: #### C MP, TSH3, CBC, T4F, LIPASE #### [address] Thyrotropin [Units/volume] i n Serum or PlasmaOrdered By: America Crow on 05-19-2023 TSH Qn 0.61 m[IU]/L 0.45-5.33 [facility] Thyroxine (T4) free [Mass/vo lume] in Serum or PlasmaOrdered By: America Crow on 05-19-2023 Free T4 [Mass/Vol] 1.25 ng/dL 0.61-1.12 [facility] Urea nitrogen [Mass/volume] in Serum or PlasmaOrdered By: America Crow on 05-19-2023 Urea nitrogen [Mass/Vol] 12 mg/dL 7-25 [facility] Urine appearanceOrdered By: America Crow on 05-19-2023 Appearance (U) Clear Clear [facility] Urine bacteria detection by automated methodOrdered By: America Crow on 05-19-2023 Bacteria Auto Ql (U) 2+ None Seen [facility] Urine colorOrdered By: Bisi Crow on 05-19-2023 Color (U) Yellow Yellow [facility] Urine glucose measurement by automated test strip (mass/volume)Ordered By: America Crow on 05-19-2023 Glucose Auto test strip (U) [Mass/Vol] Normal mg/dL Normal [facility] Urine hemoglobin detection b y automated test stripOrdered By: America Crow on 05-19-2023 Hemoglobin Auto test strip Ql (U) 1+ Negative [facility] Urine leukocyte esterase det ection by automated test stripOrdered By: America Crow on 05-19-2023 Leukocyte esterase Auto test strip Ql (U) Negative Negative [facility] Urine nitrite detection by a utomated test stripOrdered By: America Crow on 05-19-2023 Nitrite Auto test strip Ql (U) Negative Negative [facility] Urobilinogen Auto test strip (U) [Mass/Vol]Ordered By: America Schulzmaranda on 05-19-2023 Urobilinogen (U) [Mass/Vol] Normal mg/dL Normal [facility] WBC Auto (Bld) [#/Vol]Ordere d By: America Crow on 05-19-2023 WBC (Bld) [#/Vol] 9.6 10*3/uL 3.8-11.6 [facility] pH Auto test strip (U)Ordere d By: America Crow on 05-19-2023 pH (U) 1.005 [pH] 1.001-1.030 [facility] pH (U) 7.0 [pH] 5.0-9.0 [facility] ED Note-Physicianon 05-17-19 ED Note-Physician Basic Information Time Seen: Duane Bazzi PA-C 05/16/2023 16:29 Chief Complaint patient presents with high fever over past few days. denies taking any medications. History of Present Illness A 17-year-old female reports to the emergency department with her mother with chief complaint of concerns for high fevers over the last couple days. She reports that she is feels like she is anxious as well. Reports chronic abdominal pain. She denies taking any medications. Reports her fevers have been fluctuating from normal up to 104. She states that she is not sure was going on. States that she also feels very tired and fatigued. Reports only medication that she takes is for her thyroid. Reports that she is not on any medications. Denies following up with her primary care provider at this time. Review of Systems A 10 point review of systems is negative except as noted above. Medical and Surgical History: Reviewed and noted Social history: Lives at home Family History: Reviewed. Tobacco: Denies Physical Exam Vitals & Measurements T: 37.1 ?C(Oral) HR: 99(Monitored) RR: 18 BP: 119/77 SpO2: 98% HT: 156 cm WT: 65 kg BMI: 26.71 General: Patient is hysterical at the bedside, crying and tearful. She is afebrile. Skin: Warm, dry, no pallor noted. Head: Normocephalic, atraumatic Neck: No JVD Eye: PERRLA, EOMI ENT: Moist mucus membranes Cardiovascular: Regular rate normal peripheral perfusion. Radial pulses +2 bilaterally Respiratory: No respiratory distress no accessory muscle use no obvious audible wheezing. Lung sounds clear auscultation Chest Wall: no deformity Musculoskeletal: normal ROM, no deformity, no swelling GI: No obvious distention soft nontender nondistended no guarding rebounding or rigidity. No CVA tenderness Neurological: A&O moves all extremities equal strength and symmetry Psychiatric: Extremely anxious, but cooperative. Medical Decision Making MEDICAL DECISION MAKING Number and Complexity of Problems Differential Diagnosis: [] [facility] Data External documents reviewed: [] My EKG interpretation: [] My CT interpretation: [] My X-ray interpretation: Reviewed My Ultrasound interpretation: [] Decision rules/scores evaluated: [] Discussed with: [] Treatment and Disposition ED Course: 17-year-old female reports to the emergency department with chief complaint of an anxiety like state. Reports this has been ongoing issue for her. Reports very fatigued as well. States he is not following up with any primary care doctor. Physical exam of the patient, the patient is very hysterical throughout the examination. No acute findings on physical exam. She is very anxious. Due to her concerns, we did do some basic labs as well as chest x-ray. Lab reviewed and noted. No acute changes seen. Chest x-ray negative as well. We did give her Ativan, which did greatly improve her symptoms. Patient reported and stated that she did feel much improved. Due to her symptoms, discussed that we will start her on hydroxyzine to see if this helps with any type of anxiety for her. Patient also prescribed Bentyl for her abdominal pain but states that is chronic for her. Wants a GI follow-up. Discussed return precautions. Follow-up with your primary care provider in 3 to 5 days. If symptoms worsen, do not improve, or new symptoms arise please report back to emergency department for further evaluation. The patient was understanding and agreeable to plan moving forward. Shared decision making: [] Code status: [] Assessment/Plan Anxiety state (F41.1: Generalized anxiety disorder) Malaise (R53.81: Other malaise) Orders: dicyclomine, 10 mg = 1 cap(s), Oral, QID, X 7 day(s), # 28 cap(s), Refills(s) 0, Pharmacy: [id number], 156, cm, 05/16/23 16:31:00 EST, Height/Length Dosing, 65, kg, 05/16/23 16:31:00 EST, Weight Dosing hydrOXYzine, 25 mg = 1 tab(s), Oral, QID, PRN for anxiety, # 40 tab(s), Refills(s) 0, [facility]acy: [facility] #[id number], 156, cm, 05/16/23 16:31:00 EST, Height/Length Dosing, 65, kg, 05/16/23 16:31:00 EST, Weight Dosing lorazepam, 1 mg = 1 tab(s), Tab, Oral, Once, Stop date 05/16/23 16:56:00 EST, STAT, Start date 05/16/23 16:56:00 EST, 05/16/23 16:56:00 EST ondansetron, 4 mg = 1 tab(s), Tab-Dis, Oral, Once, Stop date 05/16/23 16:56:00 EST, STAT, Start date 05/16/23 16:56:00 EST, 05/16/23 16:56:00 EST Automated Diff Basic Metabolic Panel CBC w/ Auto Diff eGFR Extra Blue Tube Extra SST Tube U Beta Hcg Qual UA With Cult Reflex XR Chest Single View Medications Administered Given Ativan 1 mg Tab, 1 mg, Oral Disposition Plan Patient Discharge Condition Stable Discharge Disposition To home Discharge Prescription List Prescriptions Bentyl 10 mg Cap, 10 mg= 1 cap(s), Oral, QID hydrOXYzine hydrochloride 25 mg Tab, 25 mg= 1 tab(s), Oral, QID, PRN Follow-up With When Contact Information Svitlana Young In 3 days 05/19/2023 EST [address], [address] [facility] 3 (more content not included)... Normal [facility] Comment on above: Result Comment: Elec tronically Signed By: Jluis TEJADA, Duane Lisa\.br\Date and Time Signed: 05/16/23 19:24 EST\.br\Electronically Co-Signed By: Tr Herr DO.br\Date and Time Co-Signed: 05/17/23 17:15 EST Auto Diffon 05-16-2023 Basophils/100 WBC (Bld) 0.4 % Normal 0.0-2.0 [facility] Comment on above: Order Comment: Order Added by Discern Expert. Performed By: #### 1 [id number], 6897891, 9241523, [id number] ####[address] [address] Basophils/Leukocytes Auto (Bld) [Pure # fraction] 0.0 E9/L Normal 0.0-0.2 [facility] Comment on above: Order Comment: Order Added by Discern Expert. Performed By: #### 1 [id number], 3906654, 7818828, 9544684 ####[address] [address] Eosinophils/100 WBC (Bld) 0.2 % Normal 0.0-8.0 [facility] Comment on above: Order Comment: Order Added by Discern Expert. Performed By: #### 1 7460708, 6705943, 6214444, 1766679 ####[address] [address] Eosinophils/Leukocytes Auto (Bld) [Pure # fraction] 0.0 E9/L Normal 0.0-0.5 [facility] Comment on above: Order Comment: Order Added by Discern Expert. Performed By: #### 1 6231285, 3316337, 4027989, 4452174 ####[address] [address] Lymphocytes/100 WBC (Bld) 21.5 % Normal 14.0-50.0 [facility] Comment on above: Order Comment: Order Added by Discern Expert. Performed By: #### 1 2764012, 2970386, 0190095, 7570140 ####[address] [place] [address] Lymphocytes/Leukocytes Auto (Bld) [Pure # fraction] 1.8 E9/L Normal 1.0-4.0 [facility] Comment on above: Order Comment: Order Added by Discern Expert. Performed By: #### 1 1909425, 0519072, 1460552, 6187497 ####[facility] [address] [place] [address] Monocytes/100 WBC (Bld) 6.3 % Normal 4.0-14.0 [facility] Comment on above: Order Comment: Order Added by Discern Expert. Performed By: #### 1 1409357, 0858529, 9409622, 9805076 ####[facility] [address] [place] [address] Monocytes/Leukocytes Auto (Bld) [Pure # fraction] 0.5 E9/L Normal 0.2-1.0 [facility] Comment on above: Order Comment: Order Added by Chayo Expert. Performed By: #### 1 2526299, 4876297, 7164686, 4431248 ####[address] [place] [address] Neutrophils/100 WBC (Bld) 71.6 % Normal 36.0-75.0 [facility] Comment on above: Order Comment: Order Added by Chayo Expert. Performed By: #### 1 6146475, 8575335, 2737869, 2908527 ####[address] [place] [address] Neutrophils/Leukocytes Auto (Bld) [Pure # fraction] 5.9 E9/L Normal 2.0-7.5 [facility] Comment on above: Order Comment: Order Added by Chayo Expert. Performed By: #### 1 6138677, 7534856, 7339332, 5172844 ####[facility] [address] [place] [address] BMPon 05-16-2023 Anion gap [Moles/Vol] 14 mmol/L Normal 6-16 [facility] Comment on above: Performed By: #### 1 5325999, 6494762, 3210167, 2295725 ####[address] [place] [address] BUN/Creat Ratio 11 No Units Normal 10-20 [facility] Comment on above: Performed By: #### 1 3885407, 7989069, 4165286, 8507093 ####[facility] [address] [facility] [place] [address] Calcium [Mass/Vol] 9.6 mg/dL Normal 8.9-11.1 [facility] Comment on above: Performed By: #### 1 7782421, 5670789, 0653496, 5163596 ####[facility] [address] [place] [address] Chloride [Moles/Vol] 106 mmol/L Normal 101-111 [facility] Comment on above: Performed By: #### 1 1333293, 3767108, 6435523, 9606478 ####[facility] [address] [place] [address] CO2 [Moles/Vol] 21 mmol/L Normal 21-31 [facility] Comment on above: Performed By: #### 1 2356150, 3459992, 9460183, 0010709 ####[facility] [address] [place] [address] Creatinine [Mass/Vol] 0.8 mg/dL Normal 0.5-1.3 [facility] Comment on above: Performed By: #### 1 8908658, 4029763, 7306710, 6877490 ####[facility] [address] [place] [address] Glucose [Mass/Vol] 82 mg/dL Normal 55-199 [facility] Comment on above: Performed By: #### 1 1163885, 7728176, 5670835, 5215072 ####[facility] [address] [place] [address] Potassium [Moles/Vol] 3.6 mmol/L Normal 3.5-5.3 [facility] Comment on above: Performed By: #### 1 1673938, 3038830, 0272983, 8752629 ####[facility] [address] [place] [address] Sodium [Moles/Vol] 137 mmol/L Normal 135-145 [facility] Comment on above: Performed By: #### 1 5385541, 1142189, 3001773, 7973273 ####[facility] [address] [place] [address] Urea nitrogen [Mass/Vol] 9 mg/dL Normal 5-21 [facility] Comment on above: Performed By: #### 1 4595440, 3567382, 5544999, 4151318 ####[facility] [address] [place] [address] CBC w/ Auto Diffon Erythrocyte distribution width (RBC) [Ratio] 12.3 % Normal 10.9-14.2 [facility] Comment on above: Performed By: #### 1 7034971, 4860943, 5238838, 5693573 ####[address] [place] [address] Hematocrit (Bld) [Volume fraction] 43.6 % Normal 34.0-46.0 [facility] Comment on above: Performed By: #### 1 8927006, 5602413, 2087115, 3287008 ####[address] [place] [address] Hemoglobin (Bld) [Mass/Vol] 14.7 g/dL Normal 12.0-16.0 [facility] Comment on above: Performed By: #### 1 2997769, 5583067, 3856730, 2580466 ####[facility] [address] [place] [address] MCH (RBC) [Entitic mass] 29.8 pg Normal 27.0-34.0 [facility] Comment on above: Performed By: #### 1 6697198, 6954919, 4776347, 4701027 ####[facility] [address] [place] [address] MCHC (RBC) [Mass/Vol] 33.6 g/dL Normal 31.4-36.0 [facility] Comment on above: Performed By: #### 1 5690213, 8661179, 2096307, 0109641 ####[facility] [address] [place] [address] MCV (RBC) [Entitic vol] 88.8 fL Normal 80.0-100.0 [facility] Comment on above: Performed By: #### 1 4522216, 1528518, 8621387, 6601303 ####[address] [address] Platelet mean volume (Bld) [Entitic vol] 6.3 fL Low 6.4-10.8 [facility] Comment on above: Performed By: #### 1 1075131, 8698953, 3732862, 4460305 ####[address] [address] Platelets (Bld) [#/Vol] 397.0 E9/L Normal 150.0-500.0 [facility] Comment on above: Performed By: #### 1 1472255, 5241377, 6480401, 4449616 ####[address] [address] RBC (Bld) [#/Vol] 4.9 E12/L Normal 4.3-5.9 [facility] Comment on above: Performed By: #### 1 6980792, 9505720, 7869117, 6484905 ####[address] [address] WBC corrected for nucl RBC Auto (Bld) [#/Vol] 8.3 E9/L Normal 4.0-11.0 [facility] Comment on above: Performed By: #### 1 0606307, 1015339, 0867625, 7171566 ####[address] [address] Consent for Treatmenton 05-05 Consent for Treatment [id number] #1.00TIFF Normal [facility] Discharge Instructionson Discharge Instructions [id number] [id number] #1.00TIFF Normal [facility] ED Clinical Summaryon 2023 ED Clinical Summary [address] [address] ED Clinical Summary Person Information Name: PAUL FERGUSON/[facility] Age: 17 Years : 2005 Sex: Female Language: Nicaraguan PCP: NONE, XXXX Marital Status: Single Phone: [phone] MRN: Visit Id: Visit Reason: Malaise; Anxiety; Fever; HIGH FEVER Speciality: Acuity: 3 Enc Type: Emergency Med Service: Emergency Arrival: 05/16/2023 16:16:28 Discharge: 05/16/2023 19:03:37 LOS: 000 02:47 Checkin: 05/16/2023 16:16:28 Checkout: 05/16/2023 19:03:37 Dispo Type: Home (Routine DC) EVENTS: Event Name Event Status Request Date/Time Start Date/Time Complete Date/Time Arrive Complete 05/16/2023 16:16:28 05/16/2023 16:16:28 05/16/2023 16:16:28 Document Home Meds Request 05/16/2023 16:16:28 Triage Complete 05/16/2023 16:16:28 05/16/2023 16:31:49 05/16/2023 16:31:49 Registration Complete 05/16/2023 16:18:59 05/16/2023 16:18:59 05/16/2023 16:18:59 Reg Complete Request 05/16/2023 16:18:59 Reg Bed Request Complete 05/16/2023 16:18:59 05/16/2023 16:18:59 05/16/2023 16:18:59 Dr Exam Complete 05/16/2023 16:29:39 05/16/2023 16:29:39 05/16/2023 16:29:39 Registration Complete 05/16/2023 16:29:39 05/16/2023 16:35:26 05/16/2023 17:25:27 Dr Exam Complete 05/16/2023 16:33:07 05/16/2023 16:33:07 05/16/2023 16:33:07 Bed Assign Complete 05/16/2023 16:35:26 05/16/2023 16:35:26 05/16/2023 16:35:26 RN Exam Complete 05/16/2023 16:35:26 05/16/2023 17:13:34 05/16/2023 17:13:34 Pending Labs Complete 05/16/2023 16:57:22 05/16/2023 18:30:11 Lab Complete 05/16/2023 16:57:22 05/16/2023 18:30:11 Urine Collect Complete 05/16/2023 16:57:22 05/16/2023 18:30:11 Meds Admin Complete 05/16/2023 16:57:22 05/16/2023 17:15:29 X-Ray Complete 05/16/2023 16:57:22 05/16/2023 17:01:01 05/16/2023 17:30:17 Pending Labs Complete 05/16/2023 17:14:41 05/16/2023 17:14:41 05/16/2023 17:34:12 Lab Complete 05/16/2023 17:14:41 05/16/2023 17:14:41 05/16/2023 17:34:12 Pending Labs Complete 05/16/2023 17:15:35 05/16/2023 17:15:35 05/16/2023 17:15:36 Wet Read Request 05/16/2023 17:30:17 Pending Labs Complete 05/16/2023 17:36:21 05/16/2023 17:36:21 05/16/2023 17:36:27 Lab Complete 05/16/2023 17:36:21 05/16/2023 17:36:21 05/16/2023 17:36:27 Discharge Complete 05/16/2023 18:32:53 05/16/2023 19:03:42 05/16/2023 19:03:42 Transfer Complete 05/16/2023 19:03:42 05/16/2023 19:03:42 05/16/2023 19:03:42 ADDRESS: [address] [facility] [id number] PHYS DOC NOTES: MEDICAL INFORMATION: Prescriptions Given: New Medications [id number], [address] [place], [place] [id number], [phone] dicyclomine (Bentyl 10 mg Cap) 1 Capsules By Mouth 4 times a day for 7 Days. Refills: 0. hydrOXYzine (hydrOXYzine hydrochloride 25 mg Tab) 1 Tablets By Mouth 4 times a day as needed for anxiety. Refills: 0. Medications to Continue with No Changes Other Medications ondansetron (Zofran ODT 4 mg Tab-Dis) 1 Tablets By Mouth every 8 hours as needed Nausea/Vomiting. Refills: 0. PATIENT EDUCATION INFORMATION: Instructions: Managing Anxiety, Adult; Fatigue Follow up: With: Address: When: Svitlana Young [address], [facility] [address] [place] [phone] Business (1) In 3 days 05/19/2023 With: Address: When: [facility], [address] [place] [address] Business (1) In 3 days 05/19/2023 Comments: Follow-up with primary care physician for further evaluation of your conditions. DIAGNOSIS: Anxiety state; Malaise Normal [facility] ED Patient Education Noteon 05-16-2023 ED Patient Education Note Immunology Fatigue If you have fatigue, you feel tired all the time and have a lack of energy or a lack of motivation. Fatigue may make it difficult to start or complete tasks because of exhaustion. Occasional or mild fatigue is often a normal response to activity or life. However, long-term (chronic) or extreme fatigue may be a symptom of a medical condition such as: ? Depression. ? Not having enough red blood cells or hemoglobin in the blood (anemia). ? A problem with a small gland located in the lower front part of the neck (thyroid disorder). ? Rheumatologic conditions. These are problems related to the body's defense system (immune system). ? Infections, especially certain viral infections. Fatigue can also lead to negative health outcomes over time. Follow these instructions at home: Medicines ? Take kirp-xsv-wwtowqo and prescription medicines only as told by your health care provider. ? Take a multivitamin if told by your health care provider. ? Do not use herbal or dietary supplements unless they are approved by your health care provider. Eating and drinking ? Avoid heavy meals in the evening. ? Eat a well-balanced diet, which includes lean proteins, whole grains, plenty of fruits and vegetables, and low-fat dairy products. ? Avoid eating or drinking too many products with caffeine in them. ? Avoid alcohol. ? Drink enough fluid to keep your urine pale yellow. Activity ? Exercise regularly, as told by your health care provider. ? Use or practice techniques to help you relax, such as yoga, rolly chi, meditation, or massage therapy. Lifestyle ? Change situations that cause you stress. Try to keep your work and personal schedules in balance. ? Do not use recreational or illegal drugs. General instructions ? Monitor your fatigue for any changes. ? Go to bed and get up at the same time every day. ? Avoid fatigue by pacing yourself during the day and getting enough sleep at night. ? Maintain a healthy weight. Contact a health care provider if: ? Your fatigue does not get better. ? You have a fever. ? You suddenly lose or gain weight. ? You have headaches. ? You have trouble falling asleep or sleeping through the night. ? You feel angry, guilty, anxious, or sad. ? You have swelling in your legs or another part of your body. Get help right away if: ? You feel confused, feel like you might faint, or faint. ? Your vision is blurry or you have a severe headache. ? You have severe pain in your abdomen, your back, or the area between your waist and hips (pelvis). ? You have chest pain, shortness of breath, or an irregular or fast heartbeat. ? You are unable to urinate, or you urinate less than normal. ? You have abnormal bleeding from the rectum, nose, lungs, nipples, or, if you are female, the vagina. ? You vomit blood. ? You have thoughts about hurting yourself or others. These symptoms may be an emergency. Get help right away. Call 911. ? Do not wait to see if the symptoms will go away. ? Do not drive yourself to the hospital. Get help right away if you feel like you may hurt yourself or others, or have thoughts about taking your own life. Go to your nearest emergency room or: ? Call 911. ? Call the National Suicide Prevention Lifeline at or 354. This is open 24 hours a day. ? Text the Crisis Text Line at 784623. Summary ? If you have fatigue, you feel tired all the time and have a lack of energy or a lack of motivation. ? Fatigue may make it difficult to start or complete tasks because of exhaustion. ? Long-term (chronic) or extreme fatigue may be a symptom of a medical condition. ? Exercise regularly, as told by your health care provider. ? Change situations that cause you stress. Try to keep your work and personal schedules in balance. This information is not intended to replace advice given to you by your health care provider. Make sure you discuss any questions you have with your health care provider. Document Revised: 02/11/2022 Document Reviewed: 02/11/2022 [employer] Patient Education ? 2022 [employer]. Mental and Behavioral Health Managing Anxiety, Adult After being diagnosed with anxiety, you may be relieved to know why you have felt or behaved a certain way. You may also feel overwhelmed about the treatment ahead and what it will mean for your life. With care and support, you can manage this condition. How to manage lifestyle changes Managing stress and anxiety Stress is your body's reaction to life changes and events, both good and bad. Most stress will last just a few hours, but stress can be ongoing and can lead to more than just stress. Although stress can play a major role in anxiety, it is not the same as anxiety. Stress is usually caused by something external, such as a deadline, test, or competition. Stress normally passes after th (more content not included)... Normal [facility] ED Patient Summaryon 024 ED Patient Summary [address] [address] Patient Discharge Instructions Person Information Name: PAUL FERGUSON Age: 17 Years Arrival Date: 05/16/2023 16:16:28 Discharge Diagnosis: Anxiety state; Malaise Primary Care Physician: NONE, XXXX Provider Information Primary Provider: Tr Herr DO [employer] Associate:Ebonie The exam and treatment you received in the Emergency Department were for an urgent problem and are not intended as complete care. It is important that you follow up with a doctor, nurse practitioner, or physician?s assistant professor of anthropology for ongoing care. If your symptoms become worse or you do not improve as expected and you are unable to reach your usual health care provider, you should return to the Emergency Department. We are available 24 hours a day. PHYLLISKELLIEPAUL AGUSTIN has been given the following list of patient education materials, prescriptions and follow-up instructions: Follow-up Instructions: With: Address: When: Svitlana Young [address], [address], [address] [address] [phone] Business (1) In 3 days 05/19/2023 With: Address: When: [facility], [address] [facility], [facility] [place] [phone] Business (1) In 3 days 05/19/2023 Comments: Follow-up with primary care physician for further evaluation of your conditions. In the event that this physician does not participate in your insurance network, please consult with your insurance company to find a nearby participating provider. Patient Education Materials: Managing Anxiety, Adult; Fatigue A MESSAGE TO ALL PATIENTS REGARDING OPIOIDS PRESCRIPTION OPIOIDS: WHAT YOU NEED TO KNOW Prescription opioids can be used to help relieve rkzytdnm-gs-ihunqa pain and are often prescribed following a surgery or injury, or for certain health conditions. These medications can be an important part of the treatment but also come with serious risks. It is important to work with your healthcare provider to make sure you are getting the safest, most effective care. WHAT ARE THE RISKS AND SIDE EFFECTS OF OPIOID USE? Prescription opioids carry serious risks of addiction and overdose, especially with prolonged use. An opioid overdose, often marked by slowed breathing, can cause sudden . The use of prescription opioids can have a number of side effects as well, even when taken as directed: ? Tolerance?meaning you might need to take more of the medication for the same pain relief ? Physical dependence?meaning you have symptoms of withdrawal when a medication is stopped ? Increased sensitivity to pain ? Constipation ? Nausea, vomiting, and dry mouth ? Sleepiness and dizziness ? Confusion ? Depression ? Low levels of testosterone that can result in lower sex drive, energy, and strength ? Itching and sweating RISKS ARE GREATER WITH: ? History of drug misuse, substance use disorder, or overdose ? Mental health conditions (such as depression or anxiety) ? Sleep apnea ? Older age (65 years and older) ? Avoid alcohol while taking prescription opioids. Also, unless specifically advised by your health care provider, medications to avoid include: ? Benzodiazepines (such as Xanax or Valium) ? Muscle relaxants (such as Soma or Flexeril) ? Hypnotics (such as Ambien or Lunesta) ? Other prescription opioids KNOW YOUR OPTIONS Talk to your health care provider about ways to manage your pain that don?t involve prescription opioids. Some of these options may actually work better and have fewer risks and side effects. Options may include: ? Pain relievers such as acetaminophen, ibuprofen, and naproxen ? Some medication that are also used for depression or seizures ? Physical therapy and exercise ? Cognitive behavioral therapy, a psychological, goal-directed approach, in which patients learn how to modify physical, behavioral, and emotional triggers of pain and stress. IF YOU ARE PRESCRIBED OPIOIDS FOR PAIN: ? Never take opioids in greater amounts or more often than prescribed. ? Follow up with your primary health care provider. o Work together to create a plan on how to manage your pain. o Talk about ways to help manage your pain that don?t involve prescription opioids. o Talk about any and all concerns and side effects. ? Help prevent misuse and abuse o Never sell or share prescription opioids. o Never use another person?s prescription opioids. ? Store prescription opioids in a secure place and out of reach of others (this may include visitors, children, friends, and family). ? Safely dispose of unused prescription opioids: Find your community drug take-back program or your pharmacy mail-back program, or flush them down the toilet, following guidance from the Food and Drug Administration (www.fda.gov/Drugs/R esourcesForYou). ? Visit www.[employer] (more content not included)... Normal [facility] U BetaHcg Qualon 05-16-2023 HCG.beta subunit (U) [Moles/Vol] Negative Normal [facility] Comment on above: Performed By: #### 2 [id number], [id number] ####[facility] [address] [place] [address] UA With Cult Reflexon 2023 Bacteria LM Ql (Urine sed) TRACE Normal Trace [facility] Comment on above: Performed By: #### 2 9053493, [id number] ####[facility] [address] [place] [address] Bilirubin Ql (U) Negative Normal Negative [facility] Comment on above: Performed By: #### 2 3584063, 27900797 ####[facility] [address] [place] [address] Clarity (U) SL CLOUDY Abnormal Clear [facility] Comment on above: Performed By: #### 2 5726538, 27449695 ####[facility] [address] [place] [address] Color (U) YELLOW Normal Yellow [facility] Comment on above: Performed By: #### 2 4598611, 54964398 ####[facility] [address] [place] [address] Epithelial cells.squamous LM.HPF (Urine sed) [#/Area] 5-8 Normal 0-2 [facility] Comment on above: Performed By: #### 2 2325692, 10368856 ####[facility] [address] [place] [address] Glucose Test strip (U) [Mass/Vol] Negative Normal Negative [facility] Comment on above: Performed By: #### 2 2108267, 07552979 ####[facility] [address] [place] [address] Hemoglobin Ql (U) 2+ Abnormal Negative [facility] Comment on above: Performed By: #### 2 0801627, 90479519 ####[facility] [address] [place] [address] Ketones (U) [Mass/Vol] 2+ Abnormal Negative [facility] Comment on above: Performed By: #### 2 9284931, 36962663 ####[facility] [address] [place] [address] Perth.plasma/Perth.RB C (Bld) [Mass ratio] 0-3 Normal 0-3 [facility] Comment on above: Performed By: #### 2 5192386, 83464578 ####[facility] [address] [place] [address] Mucus Ql (Urine sed) TRACE Normal [facility] Comment on above: Performed By: #### 2 4034459, 54106132 ####[facility] [address] [place] [address] Nitrite Ql (U) Negative Normal Negative [facility] Comment on above: Performed By: #### 2 8326725, 30510154 ####[facility] [address] [place] [address] pH (U) 6.0 [pH] Invalid Interpretation Code 5.0-9.0 [facility] Comment on above: Performed By: #### 2 9775064, 94163165 ####[facility] [address] [place] [address] Protein (U) [Mass/Vol] Negative Normal Negative [facility] Comment on above: Performed By: #### 2 5865305, 22983916 ####[facility] [address] [place] [address] Specific gravity (U) [Rel density] 1.010 Invalid Interpretation Code 1.005-1.030 [facility] Comment on above: Performed By: #### 2 5710522, 42138492 ####[facility] [address] [place] [address] Type of Urine collection method Clean Catch Normal [facility] Comment on above: Performed By: #### 2 5505134, 99146985 ####[facility] [address] [place] [address] Urobilinogen Qn (U) 0.2 {Олег'U}/dL Normal 0.0-1.0 [facility] Comment on above: Performed By: #### 2 8246928, 31338176 ####[facility] [address] [place] [address] WBC Auto Ql (U) Negative Normal Negative [facility] Comment on above: Performed By: #### 2 1263332, 13543406 ####[facility] [address] [place] [address] WBC LM.HPF (Urine sed) [#/Area] 0-5 Normal 0-5 [facility] Comment on above: Performed By: #### 2 5537816, 62423295 ####[facility] [address] [place] [address] XR Chest Single Viewon 05-16 XR Chest Single View Exam Date/Time: 05/16/2023 17:30 EST Reason for Exam: Other (please specify) Report IMPRESSION: There are no acute cardiopulmonary changes. CLINICAL HISTORY: Fever EXAMINATION: XR Chest Single View COMPARISON: Chest x-ray from 04/29/2023 FINDINGS: The cardiomediastinal silhouette is unremarkable. The lungs are free of infiltrates effusions or consolidations. There are no acute osseous changes. Ordering Provider: Duane Bazzi FINAL REPORT Dictated: 05/16/2023 6:11 pm Manpreet Win MD, V. Signed (Electronic Signature): 05/16/2023 6:11 pm Signed by: Manpreet Win MD, V. Transcribed by: HARSHIL Technologist: PRICILA Technical Comments Radiation Dose: marlen Guzman in mGy = na DAP = na Normal [facility] eGFRon 05-16-2023 GFR/1.73 sq M.predicted among non-blacks MDRD (S/P/Bld) [Vol rate/Area] mL/min/{1.73_m2} Normal >=59 Natalio gee [facility] Comment on above: Order Comment: Order added by Discern Expert. Performed By: #### 1 0146141, 5738632, 0979647, 5184570 ####[facility] [address] [place] [address] Auto Diffon 04-30-2023 Basophils/100 WBC (Bld) 0.5 % Normal 0.0-2.0 [facility] Comment on above: Order Comment: Order Added by Discern Expert. Performed By: #### 2 110887, 46379535, 3697987, 16471600, 4379803, 7884667, 87175984, 6701483, 6983887 ####[place] [address] [place] [address] Basophils/Leukocytes Auto (Bld) [Pure # fraction] 0.1 E9/L Normal 0.0-0.2 [facility] Comment on above: Order Comment: Order Added by Discern Expert. Performed By: #### 2 418670, 94401428, 6946644, 32187024, 4097208, 3694742, 51618635, 9152423, 5401059 ####[address] [address] Eosinophils/100 WBC (Bld) 0.7 % Normal 0.0-8.0 [facility] Comment on above: Order Comment: Order Added by Discern Expert. Performed By: #### 2 789327, 07130907, 1537286, 17695672, 3743191, 6956975, 84001281, 5968557, 2768428 ####[place] [address] [place] [address] Eosinophils/Leukocytes Auto (Bld) [Pure # fraction] 0.1 E9/L Normal 0.0-0.5 [facility] Comment on above: Order Comment: Order Added by Discern Expert. Performed By: #### 2 568333, 98873996, 8801793, 02595671, 5531915, 4511019, 88955057, 1904756, 1835629 ####[address] [address] Lymphocytes/100 WBC (Bld) 27.8 % Normal 14.0-50.0 [facility] Comment on above: Order Comment: Order Added by Discern Expert. Performed By: #### 2 351821, 87982356, 4718771, 48223345, 1703882, 6095840, 57786711, 2082893, 0785752 ####[place] [address] [place] [address] Lymphocytes/Leukocytes Auto (Bld) [Pure # fraction] 3.6 E9/L Normal 1.0-4.0 [facility] Comment on above: Order Comment: Order Added by Discern Expert. Performed By: #### 2 100814, 88674849, 1673543, 09424414, 7581067, 2292135, 33038824, 7154860, 9242714 ####[place] [address] [place] [address] Monocytes/100 WBC (Bld) 5.9 % Normal 4.0-14.0 [facility] Comment on above: Order Comment: Order Added by Discern Expert. Performed By: #### 2 194710, 69833117, 2421137, 75845878, 5173255, 7792080, 91846578, 7724664, 4918949 ####[place] [address] [place] [address] Monocytes/Leukocytes Auto (Bld) [Pure # fraction] 0.8 E9/L Normal 0.2-1.0 [facility] Comment on above: Order Comment: Order Added by Discern Expert. Performed By: #### 2 169278, 96560437, 6864190, 22453562, 2776743, 6720410, 51616357, 9404671, 8121165 ####[place] [address] [place] [address] Neutrophils/100 WBC (Bld) 65.1 % Normal 36.0-75.0 [facility] Comment on above: Order Comment: Order Added by Discern Expert. Performed By: #### 2 296118, 19502331, 2365284, 80967286, 0212520, 1240158, 28730783, 5333602, 3073698 ####[place] [address] [place] [address] Neutrophils/Leukocytes Auto (Bld) [Pure # fraction] 8.4 E9/L High 2.0-7.5 [facility] Comment on above: Order Comment: Order Added by Discern Expert. Performed By: #### 2 949393, 45328876, 7766112, 82034304, 0657438, 1301018, 83751759, 7513898, 9667247 ####[facility] [address] [place] [address] BMPon 04-30-2023 Anion gap [Moles/Vol] 13 mmol/L Normal 6-16 [facility] Comment on above: Performed By: #### 2 151278, 50395027, 7804114, 04740606, 8815605, 9196783, 34805508, 0124858, 3880832 ####[facility] [address] [place] [address] BUN/Creat Ratio 14 No Units Normal 10-20 [facility] Comment on above: Performed By: #### 2 380432, 20550635, 3485822, 80769561, 6278497, 1040759, 58600639, 9547585, 5143521 ####[facility] [address] [place] [address] Calcium [Mass/Vol] 9.7 mg/dL Normal 8.9-11.1 [facility] Comment on above: Performed By: #### 2 346094, 45346353, 2822824, 29956699, 9096208, 3879735, 04637030, 5455545, 8909648 ####[facility] [address] [place] [address] Chloride [Moles/Vol] 107 mmol/L Normal 101-111 [facility] Comment on above: Performed By: #### 2 306616, 30279651, 7126850, 20208706, 1023865, 3080287, 41694832, 6502341, 4941568 ####[facility] [address] [place] [address] CO2 [Moles/Vol] 24 mmol/L Normal 21-31 [facility] Comment on above: Performed By: #### 2 324262, 92339137, 4088099, 10989104, 5530963, 6210925, 01352562, 9769192, 2998633 ####[facility] [address] [place] [address] Creatinine [Mass/Vol] 0.8 mg/dL Normal 0.5-1.3 [facility] Comment on above: Performed By: #### 2 163804, 08355873, 3765168, 01552720, 0617704, 9687341, 81386865, 0533904, 5296678 ####[facility] [address] [place] [address] Glucose [Mass/Vol] 97 mg/dL Normal 55-199 [facility] Comment on above: Performed By: #### 2 753648, 29878266, 1220719, 20153955, 9557306, 4471269, 58139811, 9699409, 1848958 ####[facility] [address] [place] [address] Potassium [Moles/Vol] 3.6 mmol/L Normal 3.5-5.3 [facility] Comment on above: Performed By: #### 2 297921, 25118314, 1786334, 64514467, 5536105, 6911040, 65524877, 5194640, 9841874 ####[facility] [address] [place] [address] Sodium [Moles/Vol] 140 mmol/L Normal 135-145 [facility] Comment on above: Performed By: #### 2 699118, 86609570, 2074343, 85544764, 0460636, 4743114, 19104142, 2649775, 2375109 ####[facility] [address] [place] [address] Urea nitrogen [Mass/Vol] 11 mg/dL Normal 5-21 [facility] Comment on above: Performed By: #### 2 435365, 95832453, 6169288, 94158763, 5014610, 7352223, 48157464, 7543180, 2747790 ####[facility] [address] [place] [address] CBC w/ Auto Diffon Erythrocyte distribution width (RBC) [Ratio] 12.4 % Normal 10.9-14.2 [facility] Comment on above: Performed By: #### 2 119633, 06771577, 7799747, 52208143, 2715196, 9874003, 19459641, 7875996, 9820441 ####[place] [place] [address] Hematocrit (Bld) [Volume fraction] 43.4 % Normal 34.0-46.0 [facility] Comment on above: Performed By: #### 2 915019, 43815937, 2888776, 62673911, 9700409, 4860690, 37760021, 0469629, 5712395 ####[facility] [address] [place] [address] Hemoglobin (Bld) [Mass/Vol] 14.4 g/dL Normal 12.0-16.0 [facility] Comment on above: Performed By: #### 2 978770, 40549405, 9859544, 82855696, 0637494, 1169917, 31946385, 7031532, 4315254 ####[facility] [address] [place] [address] MCH (RBC) [Entitic mass] 29.9 pg Normal 27.0-34.0 [facility] Comment on above: Performed By: #### 2 881970, 51972120, 5668747, 83387871, 4198374, 7260574, 11585354, 5177964, 0818360 ####[facility] [address] [place] [address] MCHC (RBC) [Mass/Vol] 33.1 g/dL Normal 31.4-36.0 [facility] Comment on above: Performed By: #### 2 320849, 01889419, 0156392, 03473245, 7436748, 1222169, 71038986, 0971156, 8444716 ####[facility] [address] [place] [address] MCV (RBC) [Entitic vol] 90.3 fL Normal 80.0-100.0 [facility] Comment on above: Performed By: #### 2 905977, 96379747, 4514313, 28418952, 9339858, 4534975, 72566522, 1306932, 3547415 ####[facility] [address] [place] [address] Platelet mean volume (Bld) [Entitic vol] 7.0 fL Normal 6.4-10.8 [facility] Comment on above: Performed By: #### 2 051808, 55266162, 3331963, 70356442, 0584608, 1065645, 43317763, 2464414, 2379261 ####[facility] [address] [place] [address] Platelets (Bld) [#/Vol] 433.0 E9/L Normal 150.0-500.0 [facility] Comment on above: Performed By: #### 2 631347, 77580227, 7975552, 71912590, 1084668, 2833898, 46030847, 9154940, 3985370 ####[facility] [address] [place] [address] RBC (Bld) [#/Vol] 4.8 E12/L Normal 4.3-5.9 [facility] Comment on above: Performed By: #### 2 254516, 75464586, 5871184, 74596706, 9126624, 1984486, 30961779, 1402201, 1146164 ####[place] [place] [address] WBC corrected for nucl RBC Auto (Bld) [#/Vol] 12.8 E9/L High 4.0-11.0 [facility] Comment on above: Performed By: #### 2 536647, 07634700, 3423598, 87148424, 7005045, 3937671, 28011953, 8712499, 5902754 ####[facility] [address] [place] [address] Consent for Treatmenton 04-05 Consent for Treatment [id number] #1.00TIFF Normal [facility] Discharge Instructionson Discharge Instructions [id number] 8#1.00TIFF Normal [facility] ED Clinical Summaryon 2022 ED Clinical Summary [address] [address] ED Clinical Summary Person Information Name: PAUL FERGUSON [facility] Age: 17 Years : 2005 Sex: Female Language: Nicaraguan PCP: MARVIN CUEVAS CNP Marital Status: Single Phone: [phone] Visit Id: Visit Reason: Body aches; Abdominal pain; Chest pain; Anxiety; CHEST PAIN, FAST HEART RATE, NAUSEA, ABDOMINAL PAIN Speciality: Acuity: 3 Enc Type: Emergency Med Service: Emergency Arrival: 04/29/2023 22:50:21 Discharge: 04/30/2023 01:12:20 LOS: 000 02:22 Checkin: 04/29/2023 22:50:21 Checkout: 04/30/2023 01:12:20 Dispo Type: Home (Routine DC) EVENTS: Event Name Event Status Request Date/Time Start Date/Time Complete Date/Time Arrive Complete 04/29/2023 22:50:21 04/29/2023 22:50:21 04/29/2023 22:50:21 Document Home Meds Request 04/29/2023 22:50:21 Triage Complete 04/29/2023 22:50:21 04/29/2023 23:04:15 04/29/2023 23:04:15 EKG Complete 04/29/2023 22:55:21 04/29/2023 22:59:50 Bed Assign Complete 04/29/2023 23:00:18 04/29/2023 23:00:18 04/29/2023 23:00:18 Dr Exam Complete 04/29/2023 23:00:18 04/29/2023 23:01:17 04/29/2023 23:01:17 RN Exam Complete 04/29/2023 23:00:18 04/29/2023 23:41:01 04/29/2023 23:41:01 Registration Complete 04/29/2023 23:01:17 04/29/2023 23:17:04 04/29/2023 23:17:04 Meds Admin Complete 04/29/2023 23:03:11 04/29/2023 23:37:11 Pending Labs Request 04/29/2023 23:03:11 Lab Complete 04/29/2023 23:03:11 04/29/2023 23:54:00 Patient Care Request 04/29/2023 23:03:11 RT Request 04/29/2023 23:03:11 X-Ray Complete 04/29/2023 23:03:11 04/29/2023 23:11:11 04/29/2023 23:16:00 Pending Labs Complete 04/29/2023 23:06:40 04/30/2023 00:03:25 Lab Complete 04/29/2023 23:06:40 04/30/2023 00:03:25 Swab Complete 04/29/2023 23:06:40 04/30/2023 00:03:25 Wet Read Request 04/29/2023 23:16:00 Reg Complete Request 04/29/2023 23:17:04 Reg Bed Request Complete 04/29/2023 23:17:04 04/29/2023 23:17:04 04/29/2023 23:17:04 Pending Labs Complete 04/29/2023 23:31:37 04/29/2023 23:31:37 04/29/2023 23:54:00 Lab Complete 04/29/2023 23:31:37 04/29/2023 23:31:37 04/29/2023 23:54:00 Pending Labs Complete 04/29/2023 23:47:57 04/29/2023 23:47:57 04/29/2023 23:48:04 Lab Complete 04/29/2023 23:47:57 04/29/2023 23:47:57 04/29/2023 23:48:04 Possible SIRS Request 04/29/2023 23:51:09 Meds Admin Complete 04/30/2023 00:05:13 04/30/2023 00:19:48 Discharge Complete 04/30/2023 01:00:13 04/30/2023 01:12:28 04/30/2023 01:12:28 Transfer Complete 04/30/2023 01:12:28 04/30/2023 01:12:28 04/30/2023 01:12:28 ADDRESS: [facility] [id number] PHYS DOC NOTES: MEDICAL INFORMATION: Prescriptions Given: New Medications [id number], [address] [place], [place] [id number], [phone] dicyclomine (Bentyl 10 mg Cap) 1 Capsules By Mouth 4 times a day for 7 Days. Refills: 0. Medications to Continue with No Changes Other Medications ondansetron (Zofran ODT 4 mg Tab-Dis) 1 Tablets By Mouth every 8 hours as needed Nausea/Vomiting. Refills: 0. PATIENT EDUCATION INFORMATION: Instructions: Managing Anxiety, Adult; Viral Illness, Adult Follow up: With: Address: When: MARVIN CUEVAS [address] [place], [place] [id number] Business (1) In 3 days DIAGNOSIS: Anxiety; Palpitations; Viral illness Normal [facility] ED Note-Physicianon 04-30-20 ED Note-Physician Basic Information Time Seen: Kan Díaz DO 04/29/2023 23:01 Chief Complaint complains of chest pain. anxiety. palpatations. body aches. abd pain. pt hysterical at bedside. states recently smoked marjauna History of Present Illness HPI: Patient is a 17-year-old female who presents the ED for chest pain, shortness of breath, lightheadedness, and palpitations. Patient states that over the past 4 days she has had some intermittent body aches as well has intermittent stomach cramping. She states that today she started feeling like her heart was racing and she became short of breath and felt like she might pass out. During this episode she had some nausea but no vomiting. She states that she has had some intermittent loose stools over the past couple of days. She states that the stomach cramping she was having was on the right side of her abdomen but has not actively hurting now. She did smoke marijuana tonight prior to this all worsening. ROS: Pertinent review of systems conducted and is negative except as noted above. Physical exam: General: Anxious appearing and tearful HEENT: Mucous membranes moist Neuro: awake and alert Neck: supple, trachea midline Card: Cardiac, regular, no murmur or gallop Resp: Lungs clear to auscultation no wheeze or rhonchi Abd: Soft and nondistended. No tenderness to palpation with no rebound or guarding. Ext: No gross deformity or edema Physical Exam Vitals & Measurements T: 36.6 ?C(Oral) HR: 155(Peripheral) RR: 24 BP: 145/90 SpO2: 98% HT: 156 cm WT: 65 kg BMI: 26.71 Medical Decision Making MEDICAL DECISION MAKING Number and Complexity of Problems Differential Diagnosis: [] [facility] Data External documents reviewed: N/A My EKG interpretation: Noted in chart if applicable My CT interpretation: N/A My X-ray interpretation: Noted in chart if applicable My Ultrasound interpretation: N/A Decision rules/scores evaluated: N/A Discussed with: N/A Treatment and Disposition ED Course: Patient is very anxious and tearful at bedside. She has noted to be in sinus tachycardia on EKG. Will obtain a cardiac workup. Patient was given IV fluids and Zofran. Workup as noted and is overall reassuring. Patient was given a dose of Bentyl as well as a dose of lorazepam here in the ED. On reexamination the patient states she is feeling much better and her heart rate is sinus rhythm in the 90s on the monitor. I suspect that she likely has a mild viral syndrome and tonight had an acute precipitation of anxiety attack. I discussed these things with the patient and significant other at bedside. We discussed the plan of discharge with a prescription for Bentyl as needed. She will follow-up closely with her primary care physician. Shared decision making: As above Code status: N/A Assessment/Plan Anxiety (F41.9: Anxiety disorder, unspecified) Palpitations (R00.2: Palpitations) Viral illness (B34.9: Viral infection, unspecified) Orders: dicyclomine, 10 mg = 1 cap(s), Cap, Oral, Once, Stop date 04/30/23 0:05:00 EST, STAT, Start date 04/30/23 0:05:00 EST, 04/30/23 0:05:00 EST dicyclomine, 10 mg = 1 cap(s), Oral, QID, X 7 day(s), # 28 cap(s), Refills(s) 0, Pharmacy: [facility] #[id number], 156, cm, 04/29/23 23:04:00 EST, Height/Length Dosing, 65, kg, 04/29/23 23:04:00 EST, Weight Dosing lorazepam, 0.5 mg = 1 tab(s), Tab, Oral, Once, Stop date 04/30/23 0:04:00 EST, NOW, Start date 04/30/23 0:04:00 EST, 04/30/23 0:04:00 EST ondansetron, 4 mg = 2 mL, Injection, IV Push, Once, Stop date 04/29/23 23:03:00 EST, STAT, Start date 04/29/23 23:03:00 EST, 04/29/23 23:03:00 EST Sodium Chloride 0.9% intravenous solution, 1,000 mL, Soln-IV, IV, Once, Stop date 04/29/23 23:03:00 EST, STAT, Start date 04/29/23 23:03:00 EST, Infuse over 61, minute(s) Automated Diff Basic Metabolic Panel CBC w/ Auto Diff ECG 12 Lead Adult ED Cardiac Monitoring eGFR Hepatic Function Panel Influenza A&B Ag Lipase Level Magnesium Level Oxygen Saturation Oxygen Therapy PT & PTT Rapid COVID Antigen ([facility] [place] [place]) Saline Lock Insert Troponin 0 Hr. Troponin 3 Hr. XR Chest Single View Medications Administered Given Bentyl 10 mg Cap, 10 mg, Oral LORazepam 0.5 mg Tab, 0.5 mg, Oral NS 1000 ml Bolus, 1000 mL, IV ondansetron 4 mg/2 mL Inj, 4 mg, IV Push Disposition Plan Discharge Prescription List Prescriptions Bentyl 10 mg Cap, 10 mg= 1 cap(s), Oral, QID Follow-up With When Contact Information MARVIN CUEVAS In 3 days [address] [place] [address] Business (1) Additional Instructions: Patient Education Managing Anxiety, Adult Viral Illness, Adult Problem List/Past Medical History Ongoing Chest pain Hypoglycemia Mild acne Historical No qualifying data Medications Inpatient NS 1000 ml Bolus, 1000 mL, IV, Once ondansetron 4 mg/2 mL Inj, 4 mg= 2 mL, IV Push, Once Home Zofran ODT 4 mg Tab-Dis, 4 mg= 1 tab(s), Oral, q8hr, PRN, Not taking Allergies No Know (more content not included)... Normal [facility] Comment on above: Result Comment: Elec tronically Signed By: Kan Díaz DO\.br\Date and Time Signed: 04/30/23 01:02 EST ED Patient Education Noteon 04-30-2023 ED Patient Education Note Infectious Dis ease Viral Illness, Adult Viruses are tiny germs that can get into a person's body and cause illness. There are many different types of viruses, and they cause many types of illness. Viral illnesses can range from mild to severe. They can affect various parts of the body. Short-term conditions that are caused by a virus include colds and the flu (influenza). Long-term conditions that are caused by a virus include herpes, shingles, and HIV (human immunodeficiency virus) infection. A few viruses have been linked to certain cancers. What are the causes? Many types of viruses can cause illness. Viruses invade cells in your body, multiply, and cause the infected cells to work abnormally or . When these cells , they release more of the virus. When this happens, you develop symptoms of the illness, and the virus continues to spread to other cells. If the virus takes over the function of the cell, it can cause the cell to divide and grow out of control. This happens when a virus causes cancer. Different viruses get into the body in different ways. You can get a virus by: ? Swallowing food or water that has come in contact with the virus (is contaminated). ? Breathing in droplets that have been coughed or sneezed into the air by an infected person. ? Touching a surface that has been contaminated with the virus and then touching your eyes, nose, or mouth. ? Being bitten by an insect or animal that carries the virus. ? Having sexual contact with a person who is infected with the virus. ? Being exposed to blood or fluids that contain the virus, either through an open cut or during a transfusion. If a virus enters your body, your body's defense system (immune system) will try to fight the virus. You may be at higher risk for a viral illness if your immune system is weak. What are the signs or symptoms? You may have these symptoms, depending on the type of virus and the location of the cells that it invades: ? Cold and flu viruses: ? Fever. ? Headache. ? Sore throat. ? Muscle aches. ? Stuffy nose (nasal congestion). ? Cough. ? Digestive system (gastrointestinal) viruses: ? Fever. ? Pain in the abdomen. ? Nausea. ? Diarrhea. ? Liver viruses (hepatitis): ? Loss of appetite. ? Tiredness. ? Skin or the white parts of your eyes turning yellow (jaundice). ? Brain and spinal cord viruses: ? Fever. ? Headache. ? Stiff neck. ? Nausea and vomiting. ? Confusion or sleepiness. ? Skin viruses: ? Warts. ? Itching. ? Rash. ? Sexually transmitted viruses: ? Discharge. ? Swelling. ? Redness. ? Rash. How is this diagnosed? This condition may be diagnosed based on one or more of the following: ? Symptoms. ? Medical history. ? Physical exam. ? Blood test, sample of mucus from your lungs (sputum sample), stool sample, or a swab of body fluids or a skin sore (lesion). How is this treated? Viruses can be hard to treat because they live within cells. Antibiotic medicines do not treat viruses because these medicines do not get inside cells. Treatment for a viral illness may include: ? Resting and drinking plenty of fluids. ? Medicines to relieve symptoms. These can include pbvk-qtr-ntdulkv medicine for pain and fever, medicines for cough or congestion, and medicines to relieve diarrhea. ? Antiviral medicines. These medicines are available only for certain types of viruses. Some viral illnesses can be prevented with vaccinations. A common example is the flu shot. Follow these instructions at home: Medicines ? Take qhsi-xzc-shezoaz and prescription medicines only as told by your health care provider. ? If you were prescribed an antiviral medicine, take it as told by your health care provider. Do not stop taking the antiviral even if you start to feel better. ? Be aware of when antibiotics are needed and when they are not needed. Antibiotics do not treat viruses. You may get an antibiotic if your health care provider thinks that you may have, or are at risk for, a bacterial infection and you have a viral infection. ? Do not ask for an antibiotic prescription if you have been diagnosed with a viral illness. Antibiotics will not make your illness go away faster. ? Frequently taking antibiotics when they are not needed can lead to antibiotic resistance. When this develops, the medicine no longer works against the bacteria that it normally fights. General instructions ? Drink enough fluids to keep your urine pale yellow. ? Rest as much as possible. ? Return to your normal activities as told by your health care provider. Ask your health care provider what activities are safe for you. ? Keep all follow-up visits as told by your health care provider. This is important. How is this prevented? To reduce your risk of viral illness: ? Wash your hands often with soap and water for at least 20 seconds. If soap and water are (more content not included)... Normal [facility] ED Patient Summaryon 023 ED Patient Summary [place] [id number] Patient Discharge Instructions Person Information Name: PAUL FERGUSON Age: 17 Years Arrival Date: 04/29/2023 22:50:21 Discharge Diagnosis: Anxiety; Palpitations; Viral illness Primary Care Physician: MARVIN CUEVAS CNP Provider Information Primary Provider: Kan Díaz DO Advanced Yard Associate:None The exam and treatment you received in the Emergency Department were for an urgent problem and are not intended as complete care. It is important that you follow up with a doctor, nurse practitioner, or physician?s assistant professor of anthropology for ongoing care. If your symptoms become worse or you do not improve as expected and you are unable to reach your usual health care provider, you should return to the Emergency Department. We are available 24 hours a day. PAUL FERGUSON has been given the following list of patient education materials, prescriptions and follow-up instructions: Follow-up Instructions: With: Address: When: MARVIN CUEVAS [address] [place], [place] [id number] Business (1) In 3 days In the event that this physician does not participate in your insurance network, please consult with your insurance company to find a nearby participating provider. Patient Education Materials: Managing Anxiety, Adult; Viral Illness, Adult A MESSAGE TO ALL PATIENTS REGARDING OPIOIDS PRESCRIPTION OPIOIDS: WHAT YOU NEED TO KNOW Prescription opioids can be used to help relieve dlgyefey-rq-fhtkju pain and are often prescribed following a surgery or injury, or for certain health conditions. These medications can be an important part of the treatment but also come with serious risks. It is important to work with your healthcare provider to make sure you are getting the safest, most effective care. WHAT ARE THE RISKS AND SIDE EFFECTS OF OPIOID USE? Prescription opioids carry serious risks of addiction and overdose, especially with prolonged use. An opioid overdose, often marked by slowed breathing, can cause sudden . The use of prescription opioids can have a number of side effects as well, even when taken as directed: ? Tolerance?meaning you might need to take more of the medication for the same pain relief ? Physical dependence?meaning you have symptoms of withdrawal when a medication is stopped ? Increased sensitivity to pain ? Constipation ? Nausea, vomiting, and dry mouth ? Sleepiness and dizziness ? Confusion ? Depression ? Low levels of testosterone that can result in lower sex drive, energy, and strength ? Itching and sweating RISKS ARE GREATER WITH: ? History of drug misuse, substance use disorder, or overdose ? Mental health conditions (such as depression or anxiety) ? Sleep apnea ? Older age (65 years and older) ? Avoid alcohol while taking prescription opioids. Also, unless specifically advised by your health care provider, medications to avoid include: ? Benzodiazepines (such as Xanax or Valium) ? Muscle relaxants (such as Soma or Flexeril) ? Hypnotics (such as Ambien or Lunesta) ? Other prescription opioids KNOW YOUR OPTIONS Talk to your health care provider about ways to manage your pain that don?t involve prescription opioids. Some of these options may actually work better and have fewer risks and side effects. Options may include: ? Pain relievers such as acetaminophen, ibuprofen, and naproxen ? Some medication that are also used for depression or seizures ? Physical therapy and exercise ? Cognitive behavioral therapy, a psychological, goal-directed approach, in which patients learn how to modify physical, behavioral, and emotional triggers of pain and stress. IF YOU ARE PRESCRIBED OPIOIDS FOR PAIN: ? Never take opioids in greater amounts or more often than prescribed. ? Follow up with your primary health care provider. o Work together to create a plan on how to manage your pain. o Talk about ways to help manage your pain that don?t involve prescription opioids. o Talk about any and all concerns and side effects. ? Help prevent misuse and abuse o Never sell or share prescription opioids. o Never use another person?s prescription opioids. ? Store prescription opioids in a secure place and out of reach of others (this may include visitors, children, friends, and family). ? Safely dispose of unused prescription opioids: Find your community drug take-back program or your pharmacy mail-back program, or flush them down the toilet, following guidance from the Food and Drug Administration (www.fda.gov/Drugs/R esourcesForYou). ? Visit www.cdc.gov/drugover dose to learn about the risks of opioids abuse and overdose. ? If you believe you may be struggling with addiction, tell your health ambulatory care nurse and ask for guidance or call SAMHSA?S National Helpline at 9-702 (more content not included)... Normal [facility] Hep Func Panelon 04-30-2023 Albumin [Mass/Vol] 5.1 g/dL High 3.3-5.0 [facility] Comment on above: Performed By: #### 2 571506, [id number], 2626818, 92212486, 6666072, 9241258, 02136629, 1649935, 7309765 ####[facility] [address] [place] [address] Albumin/Globulin [Mass ratio] 2.0 {ratio} Normal 1.1-2.2 [facility] Comment on above: Performed By: #### 2 996194, 10416395, 0969448, 28066833, 3128166, 5911032, 62604830, 7341720, 5791021 ####[facility] [address] [place] [address] Alk Phos 83 Int._Unit/L Normal 21-98 [facility] Comment on above: Performed By: #### 2 267371, 79355922, 8263625, 31328369, 5324572, 6298154, 24812908, 8914323, 1259359 ####[facility] [address] [place] [address] ALT 14 Int._Unit/L Normal 6-46 [facility] Comment on above: Performed By: #### 2 168465, 17312831, 4237536, 94200688, 0362190, 6465901, 16040568, 1804970, 2565646 ####[place] [address] [place] [address] AST 15 Int._Unit/L Normal 5-43 [facility] Comment on above: Performed By: #### 2 091430, 84121887, 6203557, 41877280, 7040207, 0045516, 52035670, 2006393, 1116642 ####[place] [address] [place] [address] Bili Direct 0.1 mg/dL Normal 0.0-0.4 [facility] Comment on above: Performed By: #### 2 489479, 17689572, 4185201, 75306841, 8850368, 1586991, 27616925, 2965896, 3209069 ####[facility] [address] [place] [address] Bili Indirect 0.2 mg/dL Normal 0.1-0.9 [facility] Comment on above: Performed By: #### 2 537128, 04203632, 4554702, 01001999, 5844825, 8972494, 95400522, 4774184, 9468908 ####[facility] [address] [place] [address] Bili Total 0.3 mg/dL Normal 0.0-1.1 [facility] Comment on above: Performed By: #### 2 142295, 52690015, 6274643, 50785368, 2738203, 7294250, 36957053, 9184330, 7348790 ####[facility] [address] [place] [address] Globulin (S) [Mass/Vol] 2.5 g/dL Normal 1.4-4.0 [facility] Comment on above: Performed By: #### 2 189677, 38976610, 4517845, 67207194, 4682089, 9651506, 89353257, 1398753, 5132201 ####[facility] [address] [place] [address] Protein [Mass/Vol] 7.6 g/dL Normal 6.0-7.8 [facility] Comment on above: Performed By: #### 2 920780, 44024758, 0714909, 94880224, 1894847, 1234341, 83398307, 8186285, 6075231 ####[facility] [address] [place] [address] Influenza A&B Agon Influenzae A Ag Negative Normal Negative [facility] Comment on above: Performed By: #### 1 5593415, [id number] ####[facility] [address] [place] [address] Influenzae B Ag Negative Normal Negative [facility] Comment on above: Result Comment: Test sensitivity and specificity vary for age group, specimen type, antigen types, and prevalence of disease. Test results must be evaluated in conjunction with other clinical data available to the physician. Individuals who received nasally administered Influenza A vaccine may have positive test results up to 3 days after vaccination. Performed By: #### 1 [id number], [id number] ####[facility] [address] [place] [address] Lipase Levelon 04-30-2023 Lipase Lvl 15 unit/L Normal 13-58 [facility] Comment on above: Performed By: #### 2 648408, 88991259, 2658255, 83780180, 0733002, 7878228, 26509030, 2580940, 8219224 ####[facility] [address] [place] [address] Magnesiumon 04-30-2023 Magnesium [Mass/Vol] 2.1 mg/dL Normal 1.3-2.4 [facility] Comment on above: Performed By: #### 2 626787, 12407307, 1836187, 56103776, 0860288, 1150843, 86846057, 0764980, 4103822 ####[facility] [address] [place] [address] PT & PTTon 04-30-2023 aPTT Coag (PPP) [Time] 38.8 second(s) High 25.1-36.5 [facility] Comment on above: Result Comment: Para meter 15 days - 4 weeks 1 - 5 months 6 - 11 months 1 - 5 years 6 - 10 years 11 - 17 years PTT Mean: 35.4 (27.6-45.6) Mean: 33.5 (24.8-40.7) Mean: 32.4 (25.1-40.7) Mean: 31.6 (24.0-39.2) Mean: 31.6 (26.9-38.7) Mean: 31.0 (24.6-38.4) Pediatric Reference ranges were obtained from a study by Uriah Trujillo et al. prepared from 1437 samples obtained at 7 different centers using the same coagulation reagent and instrumentation as [facility] [place] [place]. Currently there are no coagulation studies available worldwide for children to 14 days, and no normal ranges. Heparin therapeutic range (represented by Anti-Factor Xa activity of 0.2 - 0.4 U/mL) corresponds to PTT of 56.6 - 109.0 sec. Performed By: #### 2 130720, 09911897, 6439937, 21691297, 6057111, 8746241, 11232986, 6409788, 6855395 ####[facility] [address] [place] [address] INR Coag (PPP) [Relative time] 1.0 {INR} Invalid Interpretation Code [facility] Comment on above: Result Comment: INR results are specifically intended to assess patients stabilized on long-term Anticoagulation therapy suggested INR?s ?Less Intensive Anticoagulation? 2.0 ? 3.0 Conventional Range 3.0 ? 4.5 Performed By: #### 2 740589, 48036567, 2575092, 35942629, 0655910, 9105952, 34090012, 9310585, 0602208 ####[facility] [address] [place] [address] PT Coag (PPP) [Time] 11.4 second(s) Normal 9.4-12.5 [facility] Comment on above: Result Comment: 15 d ays - 4 weeks 1 - 5 months 6 -11 months 1 ? 5 years 6 ? 10 years 11 -17 years Mean: 11.2 (9.5 ? 12.6) Mean: 11.0 (9.7 ? 12.8) Mean: 11.0 (9.8 ? 13.0) Mean: 11.3 (9.9 ? 13.4) Mean: 11.7 (10.0 ? 14.6) Mean: 11.8 (10.0 - 14.1) Pediatric Reference ranges were obtained from a study by Uriah Trujillo et al. prepared from 1437 samples obtained at 7 different centers using the same coagulation reagent and instrumentation as [facility] [place]. Currently there are no coagulation studies available worldwide for children to 14 days, and no normal ranges. Performed By: #### 2 569974, 11896932, 3316525, 50004912, 3333872, 7715344, 16340858, 3838359, 9973856 ####[facility] [address] [place] [address] Rapid COVID Antigen ([facility] [place])on 04-30-2023 Rapid COV Int NEG Ctl Pass Normal [facility] Comment on above: Performed By: #### 1 6557044, [id number] ####[facility] [address] [place] [address] Rapid COV Int POS Ctl Pass Normal Fis her [facility] Comment on above: Performed By: #### 1 9561411, [id number] ####El [facility] [address] [place] [address] SARS-CoV+SARS-CoV-2 (COVID-19) Ag IA.rapid Ql (Resp) Not detected Normal Not Detected Gallegos [facility] Comment on above: Result Comment: The [employer]? System for Rapid Detection of SARS-CoV-2 is a chromatographic digital immunoassay intended for the direct and qualitative detection of SARS-CoV-2 nucleocapsid antigens in nasal swabs from individuals who are suspected of COVID-19 by their healthcare provider within the first five days of the onset of symptoms. Negative results should be treated as presumptive, do not rule out SARS-CoV-2 infection and should not be used as the sole basis for treatment or patient management decisions, including infection control decisions. Negative results should be considered in the context of a patient?s recent exposures, history and the presence of clinical signs and symptoms consistent with COVID-19, and confirmed with a molecular assay, if necessary, for patient management. For in vitro diagnostic use. In the [place], only for use under an Emergency Use Authorization. In the [place], this test has not been FDA cleared or approved; this test has been authorized by FDA under an EUA for use by authorized laboratories; use by laboratories certified under the CLIA, 42 U.S.C. ?263a, that meet requirements to perform moderate, high, or waived complexity tests and at the Point of Care (POC), i.e., in patient care settings operating under a CLIA Certificate of Waiver, Certificate of Compliance, or Certificate of Accreditation. This test has been authorized only for the detection of proteins from SARS-CoV-2, not for any other viruses or pathogens; and, in the [place], this test is only authorized for the duration of the declaration that circumstances exist justifying the authorization of emergency use of in vitro diagnostics for detection and/or diagnosis of the virus that causes COVID-19 under Section 564(b)(1) of the Act, 21 U.S.C. ? 360bbb-3(b)(1), unless the authorization is terminated or revoked sooner. Performed By: #### 1 [id number], [id number] ####[facility] [address] [place] [address] Troponin 0 Hr.on 04-30-2023 Troponin I.cardiac [Mass/Vol] ng/mL Low 10.10-27.10 [facility] Comment on above: Result Comment: The 95% CI (Confidence Interval) PPV (Positive Predictive Value) for myocardial infarction in females is 38 pg/mL, in males 51 pg/mL. The results should be used in conjunction with clinical conditions of myocardial infarction. (Access High Sensitivity Troponin I Instructions For Use, [employer], December 2017) Performed By: #### 2 [id number], [id number], 9929115, 33289831, 5706351, 8101290, 67253240, 3399701, 2231444 ####[facility] [address] [place] [address] XR Chest Single Viewon 04-30 XR Chest Single View Exam Date/Time: 04/29/2023 23:16 EST Reason for Exam: Chest pain Report IMPRESSION: NO ACTIVE LUNG DISEASE. EXAM: XR Chest Single View CLINICAL HISTORY: Shortness of breath Chest pain COMPARISONS: 12/29/2019 FINDINGS: The heart, mediastinum and pulmonary vasculature are within normal limits. Visualized lung hdz are clear. Bones unremarkable. Ordering Provider: Kan Díaz FINAL REPORT Dictated: 04/30/2023 6:52 am Dagoberto Canales MD Signed (Electronic Signature): 04/30/2023 6:52 am Signed by: Dagoberto Canales MD Transcribed by: HARSHIL Technologist: PRICILA Technical Comments Radiation Dose: Ka,r in mGy = na DAP = na Normal [facility] eGFRon 04-30-2023 GFR/1.73 sq M.predicted among non-blacks MDRD (S/P/Bld) [Vol rate/Area] mL/min/{1.73_m2} Normal >=59 Natalio r [facility] Comment on above: Order Comment: Order added by Discern Expert. Performed By: #### 2 [id number], [id number], 5519684, 12213237, 8292864, 1631896, 24213563, 4644227, 2610883 ####[place] [address] [place] [id number] CHEMISTRYOrdered By: SYSTEM SYSTEM on 04-29-2023 Albumin [Mass/Vol] 5.1 g/dL High 3.3 - 5.0 gm/dL Remisol Chem Albumin/Globulin [Mass ratio] 2.0 {ratio} Normal 1.1 - 2.2 Remisol Chem Alk Phos 83 [iU]/d Normal 21 - 98 Int._Unit/L Remisol Chem ALT 14 [iU]/d Normal 6 - 46 Int._Unit/L Remisol Chem Anion gap [Moles/Vol] 13 mmol/L Normal 6 - 16 mEq/L Remisol Chem AST 15 [iU]/d Normal 5 - 43 Int._Unit/L Remisol Chem Bili Direct 0.1 mg/dL Normal 0.0 - 0.4 mg/dL Remisol Chem Bili Indirect 0.2 mg/dL Normal 0.1 - 0.9 mg/dL Remisol Chem Bili Total 0.3 mg/dL Normal 0.0 - 1.1 mg/dL Remisol Chem Calcium [Mass/Vol] 9.7 mg/dL Normal 8.9 - 11. 1 mg/dL [facility] Chem Chloride [Moles/Vol] 107 mmol/L Normal 101 - 1 11 mmol/L [facility] Chem CO2 [Moles/Vol] 24 mmol/L Normal 21 - 31 mmol/L [facility] Chem Creatinine [Mass/Vol] 0.8 mg/dL Normal 0.5 - 1.3 mg/dL [facility] eGFR mL/min/1.73 m2 Normal >=59mL/min/ 1.73 m2 [facility] Chem Globulin (S) [Mass/Vol] 2.5 g/dL Normal 1.4 - 4.0 gm/dL [facility] Glucose [Mass/Vol] 97 mg/dL Normal 55 - 199 mg/dL [facility] Chem Lipase Lvl 15 unit/L Normal 13 - 58 unit/L [facility] Chem Magnesium [Mass/Vol] 2.1 mg/dL Normal 1.3 - 2 .4 mg/dL [facility] Chem Potassium [Moles/Vol] 3.6 mmol/L Normal 3.5 - 5.3 mmol/L Remisol Chem Protein [Mass/Vol] 7.6 g/dL Normal 6.0 - 7.8 gm/dL Rem[facility] Chem Sodium [Moles/Vol] 140 mmol/L Normal 135 - 145 mmol/L Remisol Chem Troponin pg/mL Low 10.10 - 27.10 pg/mL [facility] Comment on above: Interpretive Data: T he 95% CI (Confidence Interval) PPV (Positive Predictive Value) for myocardial infarction in females is 38 pg/mL, in males 51 pg/mL. The results should be used in conjunction with clinical conditions of myocardial infarction. (Access High Sensitivity Troponin I Instructions For Use, Nestor [employer], December 2017) Urea nitrogen [Mass/Vol] 11 mg/dL Normal 5 - 21 mg/dL Remisol Chem Urea nitrogen/Creatinine [Mass ratio] 14 mg/mg Normal 10 - 20 Remisol Chem COAGULATIONOrdered By: Daniel De Anda on 04-29-2023 aPTT Coag (PPP) [Time] 38.8 s High 25.1 - 36.5 second(s) [facility] [place] Comment on above: Interpretive Data: P felicia 15 days - 4 weeks 1 - 5 months 6 - 11 months 1 - 5 years 6 - 10 years 11 - 17 years PTT Mean: 35.4 (27.6-45.6) Mean: 33.5 (24.8-40.7) Mean: 32.4 (25.1-40.7) Mean: 31.6 (24.0-39.2) Mean: 31.6 (26.9-38.7) Mean: 31.0 (24.6-38.4) Pediatric Reference ranges were obtained from a study by Uriah Trujillo et al. prepared from 1437 samples obtained at 7 different centers using the same coagulation reagent and instrumentation as [facility] [place]. Currently there are no coagulation studies available worldwide for children to 14 days, and no normal ranges. Heparin therapeutic range (represented by Anti-Factor Xa activity of 0.2 - 0.4 U/mL) corresponds to PTT of 56.6 - 109.0 sec. INR Coag (PPP) [Relative time] 1.0 {INR} Invalid Interpretation Code [facility] [place] [facility] Comment on above: Interpretive Data: I NR results are specifically intended to assess patients stabilized on long-term Anticoagulation therapy suggested INR s Less Intensive Anticoagulation 2.0 3.0 Conventional Range 3.0 4.5 PT Coag (PPP) [Time] 11.4 s Normal 9.4 - 1 2.5 second(s) [facility] [place] [facility] Comment on above: Interpretive Data: 1 5 days - 4 weeks 1 - 5 months 6 -11 months 1 5 years 6 10 years 11 -17 years Mean: 11.2 (9.5 12.6) Mean: 11.0 (9.7 12.8) Mean: 11.0 (9.8 13.0) Mean: 11.3 (9.9 13.4) Mean: 11.7 (10.0 14.6) Mean: 11.8 (10.0 - 14.1) Pediatric Reference ranges were obtained from a study by Uriah Trujillo et al. prepared from 1437 samples obtained at 7 different centers using the same coagulation reagent and instrumentation as [facility] [place]. Currently there are no coagulation studies available worldwide for children to 14 days, and no normal ranges. HEMATOLOGYOrdered By: SYSTEM SYSTEM on 04-29-2023 Basophils/100 WBC (Bld) 0.5 % Normal 0.0 - 2.0 % [facility] Basophils/Leukocytes Auto (Bld) [Pure # fraction] 0.1 E9/L Normal 0.0 - 0.2 E9/L [facility] Eosinophils/100 WBC (Bld) 0.7 % Normal 0.0 - 8.0 % [facility] Eosinophils/Leukocytes Auto (Bld) [Pure # fraction] 0.1 E9/L Normal 0.0 - 0.5 E9/L [facility] Lymphocytes/100 WBC (Bld) 27.8 % Normal 14 .0 - 50.0 % [facility] Lymphocytes/Leukocytes Auto (Bld) [Pure # fraction] 3.6 E9/L Normal 1.0 - 4.0 E9/L [facility] Monocytes/100 WBC (Bld) 5.9 % Normal 4.0 - 14.0 % [facility] Monocytes/Leukocytes Auto (Bld) [Pure # fraction] 0.8 E9/L Normal 0.2 - 1.0 E9/L [facility] Neutrophils/100 WBC (Bld) 65.1 % Normal 36 .0 - 75.0 % [facility] Neutrophils/Leukocytes Auto (Bld) [Pure # fraction] 8.4 E9/L High 2.0 - 7.5 E9/L [facility] HEMATOLOGYOrdered By: Daniel De Anda on 04-29-2023 Erythrocyte distribution width (RBC) [Ratio] 12.4 % Normal 10.9 - 14.2 % [facility] Hematocrit (Bld) [Volume fraction] 43.4 % Normal 34.0 - 46.0 % [facility] Hemoglobin (Bld) [Mass/Vol] 14.4 g/dL Normal 12.0 - 16.0 gm/dL [facility] MCH (RBC) [Entitic mass] 29.9 pg Normal 27. 0 - 34.0 pg [facility] MCHC (RBC) [Mass/Vol] 33.1 g/dL Normal 31.4 - 36.0 gm/dL [facility] MCV (RBC) [Entitic vol] 90.3 fL Normal 80.0 - 100.0 fL [facility] Platelet mean volume (Bld) [Entitic vol] 7.0 fL Normal 6.4 - 10.8 fL [facility] Platelets (Bld) [#/Vol] 433.0 E9/L Normal 150. 0 - 500.0 E9/L [facility] RBC (Bld) [#/Vol] 4.8 E12/L Normal 4.3 - 5.9 E12/L [facility] WBC corrected for nucl RBC Auto (Bld) [#/Vol] 12.8 E9/L High 4.0 - 11.0 E9/L [facility] MICRO OTHER TESTSOrdered By: Daniel De Anda on 04-29-2023 Influenzae A Ag Negative (04/29/23 11:31 PM) Normal Negative [facility] [place] [facility] Sero Influenzae B Ag Negative 1 (04/29/23 11:31 PM) Normal Negative [facility] [place] [facility] Comment on above: Interpretive Data: T est sensitivity and specificity vary for age group, specimen type, antigen types, and prevalence of disease. Test results must be evaluated in conjunction with other clinical data available to the physician. Individuals who received nasally administered Influenza A vaccine may have positive test results up to 3 days after vaccination. Rapid COV Int NEG Ctl Pass (04/29/23 11:31 PM) Normal [facility] Rapid COV Int POS Ctl Pass (04/29/23 11:31 PM) Normal [facility] [place] Man Sero SARS-CoV+SARS-CoV-2 (COVID-19) Ag IA.rapid Ql (Resp) Not Detected 6 (04/29/23 11:31 PM) Normal Not Detected [facility] [place] [facility] Comment on above: Interpretive Data: Deisy lucas Picolight Veritor System for Rapid Detection of SARS-CoV-2 is a chromatographic digital immunoassay intended for the direct and qualitative detection of SARS-CoV-2 nucleocapsid antigens in nasal swabs from individuals who are suspected of COVID-19 by their healthcare provider within the first five days of the onset of symptoms. Negative results should be treated as presumptive, do not rule out SARS-CoV-2 infection and should not be used as the sole basis for treatment or patient management decisions, including infection control decisions. Negative results should be considered in the context of a patient s recent exposures, history and the presence of clinical signs and symptoms consistent with COVID-19, and confirmed with a molecular assay, if necessary, for patient management. For in vitro diagnostic use. In the [place], only for use under an Emergency Use Authorization. In the [place], this test has not been FDA cleared or approved; this test has been authorized by FDA under an EUA for use by authorized laboratories; use by laboratories certified under the CLIA, 42 U.S.C. 263a, that meet requirements to perform moderate, high, or waived complexity tests and at the Point of Care (POC), i.e., in patient care settings operating under a CLIA Certificate of Waiver, Certificate of Compliance, or Certificate of Accreditation. This test has been authorized only for the detection of proteins from SARS-CoV-2, not for any other viruses or pathogens; and, in the [place], this test is only authorized for the duration of the declaration that circumstances exist justifying the authorization of emergency use of in vitro diagnostics for detection and/or diagnosis of the virus that causes COVID-19 under Section 564(b)(1) of the Act, 21 U.S.C. 360bbb-3(b)(1), unless the authorization is terminated or revoked sooner. Formson 01-31-2023 Forms [id number] #1.00CD:127 Normal [facility] Formson 01-30-2023 Forms [id number] #1.00CD:127 Normal [facility] Formson 01-29-2023 Forms [id number] #1.00CD:127 Normal [facility] Auto Diffon 01-18-2023 Basophils/100 WBC (Bld) 0.8 % Normal 0.0-2.0 [facility] Comment on above: Order Comment: Order Added by Discern Expert. Performed By: #### 2 918239, 11252729, 5203761, 3412120, 2064946, 45962269, 0955072 ####[facility] [address] [place] [address] Basophils/Leukocytes Auto (Bld) [Pure # fraction] 0.1 E9/L Normal 0.0-0.2 [facility] Comment on above: Order Comment: Order Added by Discern Expert. Performed By: #### 2 003860, 36418095, 0012832, 7279653, 5683340, 14094320, 9437363 ####[facility] [address] [place] [address] Eosinophils/100 WBC (Bld) 1.0 % Normal 0.0-8.0 [facility] Comment on above: Order Comment: Order Added by Discern Expert. Performed By: #### 2 912178, 07197324, 5113351, 4896047, 6432733, 06964734, 4781834 ####[facility] [address] [place] [address] Eosinophils/Leukocytes Auto (Bld) [Pure # fraction] 0.1 E9/L Normal 0.0-0.5 [facility] Comment on above: Order Comment: Order Added by Discern Expert. Performed By: #### 2 638855, 79098746, 0972723, 1435151, 6203062, 75094459, 6152800 ####[place] [place] [address] Lymphocytes/100 WBC (Bld) 29.6 % Normal 14.0-50.0 [facility] Comment on above: Order Comment: Order Added by Discern Expert. Performed By: #### 2 227657, 18823237, 6742287, 1502789, 0829355, 97420285, 7059570 ####[address] [place] [address] Lymphocytes/Leukocytes Auto (Bld) [Pure # fraction] 2.2 E9/L Normal 1.0-4.0 [facility] Comment on above: Order Comment: Order Added by Discern Expert. Performed By: #### 2 307337, 29110358, 1512758, 3283991, 6260357, 49575489, 3796395 ####[address] [address] Monocytes/100 WBC (Bld) 7.9 % Normal 4.0-14.0 [facility] Comment on above: Order Comment: Order Added by Discern Expert. Performed By: #### 2 933799, 83325388, 9504680, 3313138, 1523843, 82272036, 6528702 ####[address] [place] [address] Monocytes/Leukocytes Auto (Bld) [Pure # fraction] 0.6 E9/L Normal 0.2-1.0 [facility] Comment on above: Order Comment: Order Added by Discern Expert. Performed By: #### 2 372969, 44940442, 0896573, 0680147, 2970834, 73406248, 4718756 ####[address] [place] [address] Neutrophils/100 WBC (Bld) 60.7 % Normal 36.0-75.0 [facility] Comment on above: Order Comment: Order Added by Discern Expert. Performed By: #### 2 535809, 78745412, 2832453, 3388573, 2944071, 70949937, 9846283 ####[facility] [address] [place] [address] Neutrophils/Leukocytes Auto (Bld) [Pure # fraction] 4.6 E9/L Normal 2.0-7.5 [facility] Comment on above: Order Comment: Order Added by Discern Expert. Performed By: #### 2 718273, 15824056, 4143197, 9622629, 8091140, 71235249, 9729443 ####[facility] [address] [place] [address] B hCG Qualon 01-18-2023 Beta hCG Ql Negative Normal [facility] Comment on above: Performed By: #### 2 800953, 42881672, 5073003, 0947298, 2171089, 22872318, 0638205 ####[facility] [address] [place] [address] BMPon 01-18-2023 Creatinine [Mass/Vol] 0.7 mg/dL Normal 0.5-1.3 [facility] Comment on above: Performed By: #### 2 981051, 63438661, 1176685, 7771606, 8077147, 83948889, 4726678 ####[facility] [address] [place] [address] Urea nitrogen [Mass/Vol] 12 mg/dL Normal 5-21 [facility] Comment on above: Performed By: #### 2 073297, 35365011, 1514001, 8201039, 5914971, 95408503, 3723261 ####[facility] [address] [place] [address] Urea nitrogen/Creatinine [Mass ratio] 17 No Units Normal 10-20 [facility] Comment on above: Performed By: #### 2 577443, 06918311, 5294906, 4367827, 2813522, 80519181, 0489349 ####[facility] [address] [place] [address] Anion gap [Moles/Vol] 12 mmol/L Normal 6-16 [facility] Comment on above: Performed By: #### 2 102008, 08304945, 1098530, 6555133, 5641189, 81514868, 6984376 ####[facility] [address] [place] [address] Calcium [Mass/Vol] 9.1 mg/dL Normal 8.9-11.1 [facility] Comment on above: Performed By: #### 2 118122, 15581408, 0450812, 4712217, 6358825, 79786635, 6692415 ####[facility] [address] [place] [address] Chloride [Moles/Vol] 108 mmol/L Normal 101-111 [facility] Comment on above: Performed By: #### 2 268603, 69892330, 2458642, 7276504, 6366867, 59583803, 1084870 ####[facility] [address] [place] [address] CO2 [Moles/Vol] 22 mmol/L Normal 21-31 [facility] Comment on above: Performed By: #### 2 036177, 68029339, 8177667, 2896010, 5909512, 87879478, 4369816 ####[facility] [address] [place] [address] Glucose [Mass/Vol] 99 mg/dL Normal 55-199 [facility] Comment on above: Result Comment: If t his glucose result represents a fasting glucose, interpretation should refer to the following reference range: 55-99 mg/dL Performed By: #### 2 699940, 38816628, 4763934, 6870742, 7449918, 83219244, 6108157 ####[facility] [address] [place] [address] Potassium [Moles/Vol] 3.7 mmol/L Normal 3.5-5.3 [facility] Comment on above: Performed By: #### 2 328837, 05704052, 4859239, 1889795, 5648960, 72478126, 8291742 ####[facility] [address] [place] [address] Sodium [Moles/Vol] 138 mmol/L Normal 135-145 [facility] Comment on above: Performed By: #### 2 936425, 03938497, 4640930, 0734446, 8382688, 16029695, 0399273 ####[facility] [address] [place] [address] CBC w/ Auto Diffon 3 Erythrocyte distribution width (RBC) [Ratio] 12.8 % Normal 10.9-14.2 [facility] Comment on above: Performed By: #### 2 459772, 42928422, 6383355, 8013512, 0828790, 51550845, 0590400 ####[facility] [address] [place] [address] Hematocrit (Bld) [Volume fraction] 40.3 % Normal 34.0-46.0 [facility] Comment on above: Performed By: #### 2 726461, 21195458, 1402653, 6492490, 4787296, 37504012, 0843087 ####[facility] [address] [place] [address] Hemoglobin (Bld) [Mass/Vol] 13.7 g/dL Normal 12.0-16.0 [facility] Comment on above: Performed By: #### 2 110547, 97754621, 3283251, 8078348, 1264135, 63369750, 7991560 ####[facility] [address] [place] [address] MCH (RBC) [Entitic mass] 30.3 pg Normal 27.0-34.0 [facility] Comment on above: Performed By: #### 2 409034, 95651171, 4325824, 1007182, 7773448, 58032721, 2505910 ####[address] [place] [address] MCHC (RBC) [Mass/Vol] 34.0 g/dL Normal 31.4-36.0 [facility] Comment on above: Performed By: #### 2 736661, 71489713, 3654381, 3150348, 9716691, 65497617, 0048022 ####[address] [place] [address] MCV (RBC) [Entitic vol] 89.0 fL Normal 80.0-100.0 [facility] Comment on above: Performed By: #### 2 810726, 98842044, 8105008, 2098152, 4529038, 77250534, 9939593 ####[address] [address] Platelet mean volume (Bld) [Entitic vol] 6.7 fL Normal 6.4-10.8 [facility] Comment on above: Performed By: #### 2 814588, 09282973, 2401739, 3154900, 4657450, 57925953, 4366401 ####[address] [address] Platelets (Bld) [#/Vol] 398.0 E9/L Normal 150.0-500.0 [facility] Comment on above: Performed By: #### 2 477926, 65369966, 0688045, 1917284, 9408179, 61851333, 9956925 ####[address] [address] RBC (Bld) [#/Vol] 4.5 E12/L Normal 4.3-5.9 [facility] Comment on above: Performed By: #### 2 149594, 41254777, 2571843, 5019001, 3141732, 07734180, 1548837 ####[address] [address] WBC corrected for nucl RBC Auto (Bld) [#/Vol] 7.6 E9/L Normal 4.0-11.0 [facility] Comment on above: Performed By: #### 2 372154, 81480665, 2698580, 6665388, 5550808, 67532737, 9714085 ####[place] [facility] [address] [place] [address] CT Abdomen/Pelvis w/ Contras ton 01-18-2023 CT Abdomen/Pelvis w/ Contrast Exam Date/Time: 01/18/2023 11:42 EDT Reason for Exam: Abdominal pain, acute, nonlocalized;Other (please specify) Report IMPRESSION: Possible mild nonspecific colitis versus colonic underdistention. EXAMINATION: CT Abdomen/Pelvis w/ Contrast HISTORY: Abdominal pain, acute, nonlocalized. Abdominal pain, bloating, diarrhea. TECHNIQUE: CT of the abdomen and pelvis was performed using standard technique with intravenous contrast, scanning from just above the dome of the diaphragm to the symphysis pubis. Including delayed images through the kidneys. Including sagittal and coronal reconstructions on both phases. All CT scans at this facility use dose modulation, iterative reconstruction, and/or weight based dosing when appropriate to reduce radiation dose to as low as reasonably achievable. COMPARISON: Pelvic ultrasound 12/07/2021. RESULT: Liver: Focal fat deposition falciform ligament, otherwise unremarkable. Biliary: Gallbladder unremarkable. No biliary ductal dilation. Pancreas: No mass or duct dilation. Spleen: No mass or splenomegaly. Adrenals: No mass. Kidneys: No mass, calculus or hydronephrosis. Delayed phase imaging with normal excreted contrast in the renal collecting system, ureters, and bladder. GI tract: No bowel dilation. Diffuse mild wall thickening versus underdistention involving majority of the colon. Appendix unremarkable. Lymph nodes: No abdominal or pelvic lymphadenopathy. Mesentery/Peritoneum /Retroperitoneum: No ascites or mass. Vasculature: The celiac axis and SMA are patent. The portal vein and branches, splenic vein, SMV, and hepatic veins are patent. No abdominal aortic or iliac artery Report aneurysm. Pelvis: No significant free fluid. Uterus unremarkable. Bladder unremarkable. Bones: No acute osseous findings. Soft tissues: Unremarkable. Lower thorax: Unremarkable. Ordering Provider: Guicho Dey FINAL REPORT Dictated: 01/18/2023 11:50 am Chuy Agustin MD Signed (Electronic Signature): 01/18/2023 11:50 am Signed by: Chuy Agustin MD Transcribed by: HARSHIL Technologist: ALEXIS Technical Comments GFR (mL/min/1/73m2) 128 Contrast: Isovue 300 Contrast amount in ml's: 100 Normal [facility] Consent for Treatmenton 01-03 Consent for Treatment [id number] #1.00CD:127 Normal [facility] Discharge Instructionson Discharge Instructions [id number]#1.00CD:127 Normal [facility] ED Clinical Summaryon 2022 ED Clinical Summary [place] [id number] ED Clinical Summary Person Information [facility]: [facility] Age[facility] 17 [facility] : 2005 Sex: Female Language: Nicaraguan PCP: MARVIN CUEVAS CNP Marital Status: Single Phone: [phone] MRN: Visit Id: Visit Reason: Diarrhea; Abdominal pain; ABD PAIN, CHILLS Speciality: Acuity: 3 Enc Type: Emergency Med Service: Emergency Arrival: 01/18/2023 09:33:27 Discharge: 01/18/2023 13:30:53 LOS: 000 03:57 Checkin: 01/18/2023 09:33:27 Checkout: 01/18/2023 13:30:53 Dispo Type: Home (Routine DC) EVENTS: Event Name Event Status Request Date/Time Start Date/Time Complete Date/Time Arrive Complete 01/18/2023 09:33:27 01/18/2023 09:33:27 01/18/2023 09:33:27 Document Home Meds Request 01/18/2023 09:33:27 Triage Complete 01/18/2023 09:33:27 01/18/2023 09:39:05 01/18/2023 09:39:05 Bed Assign Complete 01/18/2023 09:35:10 01/18/2023 09:35:10 01/18/2023 09:35:10 Dr Exam Complete 01/18/2023 09:35:10 01/18/2023 09:37:08 01/18/2023 09:37:08 RN Exam Complete 01/18/2023 09:35:10 01/18/2023 09:42:43 01/18/2023 09:42:43 Registration Complete 01/18/2023 09:37:08 01/18/2023 09:45:25 01/18/2023 09:45:25 Dr Exam Complete 01/18/2023 09:37:13 01/18/2023 09:37:13 01/18/2023 09:37:13 Dr Exam Complete 01/18/2023 09:40:41 01/18/2023 09:40:41 01/18/2023 09:40:41 Reg Complete Request 01/18/2023 09:45:25 Reg Bed Request Complete 01/18/2023 09:45:25 01/18/2023 09:45:25 01/18/2023 09:45:25 Meds Admin Complete 01/18/2023 09:54:05 01/18/2023 09:59:44 Pending Labs Complete 01/18/2023 09:54:05 01/18/2023 13:07:22 Lab Complete 01/18/2023 09:54:05 01/18/2023 13:07:22 Urine Collect Complete 01/18/2023 09:54:05 01/18/2023 13:07:22 CT Complete 01/18/2023 09:54:05 01/18/2023 10:54:39 01/18/2023 11:42:20 Pending Labs Complete 01/18/2023 10:03:46 01/18/2023 10:03:46 01/18/2023 10:34:23 Lab Complete 01/18/2023 10:03:46 01/18/2023 10:03:46 01/18/2023 10:34:23 Pending Labs Complete 01/18/2023 10:12:29 01/18/2023 10:12:29 01/18/2023 10:12:36 Lab Complete 01/18/2023 10:12:29 01/18/2023 10:12:29 01/18/2023 10:12:36 Meds Admin Complete 01/18/2023 10:34:32 01/18/2023 10:38:19 Pending Labs Complete 01/18/2023 11:59:04 01/18/2023 11:59:04 01/18/2023 11:59:05 Discharge Complete 01/18/2023 13:20:03 01/18/2023 13:30:58 01/18/2023 13:30:58 Transfer Complete 01/18/2023 13:30:58 01/18/2023 13:30:58 01/18/2023 13:30:58 [address] [facility] [id number] PHYS DOC NOTES: MEDICAL INFORMATION: Prescriptions Given: New Medications [id number], [address] [place], [place] [id number], [phone] dicyclomine (dicyclomine 20 mg Tab) 1 Tablets By Mouth 3 times a day for 7 Days. Refills: 0. Medications to Continue with No Changes Other Medications ondansetron (Zofran ODT 4 mg Tab-Dis) 1 Tablets By Mouth every 8 hours as needed Nausea/Vomiting. Refills: 0. PATIENT EDUCATION INFORMATION: Instructions: Abdominal Pain, Adult Follow up: With: Address: When: MARVIN GREENFIELD [address] [place], [place] [id number] Business (1) In 3 days 01/21/2023 DIAGNOSIS: Abdominal pain Normal [facility] ED Note-Physicianon 01-19-20 ED Note-Physician Basic Information Time Seen: Guicho Dey PA-C 01/18/2023 09:37 Chief Complaint pt says she has had abdominal pain and diarrhea x2 dyas. went to [facility] and was seen History of Present Illness 17 year old female presents to the ED for evaluation of abdominal pain which began on Friday. She states that initially she noticed some pain in her R groin region which she associated with running the day prior. She took a Tylenol for that pain with benefit. Then on Friday she started to notice the pain was more located in her lower abdomen, most notably in her RLQ. She describes this pain as crampy with an occasional sharp pain. She denies any nausea or vomiting. She is able to continue to eat and take in liquids. She has noticed some diarrhea but denies any melena or bright red blood in the stools. She does believe that she gets diarrhea periodically which is normal for her. She denies fevers but does feel that she has had chills. She went to the [facility] ED on for these same symptoms with a negative workup. They told her to go back to the ED if she had increased pain. She denies increased pain but d/t no change in her symptoms she is here today for additional testing and labs. Review of Systems A 10 point review of systems is negative except as noted above. Medical and Surgical History: Reviewed and noted Social history: Lives at home Tobacco: Denies Physical Exam Vitals & Measurements T: 37.0 ?C(Oral) HR: 62(Peripheral) RR: 20 BP: 127/79 SpO2: 98% HT: 152.40 cm WT: 68 kg BMI: 29.28 Nurses notes and vital signs reviewed and patient is not hypoxic. General: The patient appears well and in no significant distress Patient is resting comfortably on the exam bed. Skin: Warm, dry, no pallor noted. Head: Atraumatic. Neck: No JVD. Eye: Normal conjunctiva. Ears, Nose, Mouth, and Throat: Moist mucous membranes Cardiovascular: Strong distal pulses. Chest wall: Respiratory: Respirations are nonlabored. Lungs clear to auscultation. Back: Normal range of motion, no CVA tenderness. Musculoskeletal: Normal ROM with no gross deformity. Gastrointestinal: Abdomen soft throughout. No reproducible tenderness Urological: Neurological: Awake and alert. No focal deficits. Follows commands. GCS 15. Psychiatric: Cooperative. Medical Decision Making Patient seen and evaluated with physician assistant professor of anthropology student. I had a yfdm-qa-czbj interaction with the patient. I personally performed the physical exam and medical decision making. I have verified the documentation by the student is accurately representing the information obtained. Patient presents for evaluation of abdominal pain. This has been ongoing issue for the last several days. She complains of intermittent abdominal cramping. She had some nausea and a couple episodes of diarrhea. She has had outside ED and had negative blood work and x-ray. She states she was told take some gas medicine which she has done but this seems to worsen her pain. On examination she is resting comfortably. She has stable vital signs. Her abdomen is soft throughout with no reproducible tenderness. Laboratory studies reviewed and noted. Given her repeat ED presentation CT scan was obtained and reviewed by radiologist. Radiologist did question colitis, but does not correlate with her examination. She had no significant diarrhea. No vomiting. She is treated symptomatically with Bentyl and discharged home to follow-up with PCP. Patient was encouraged to return to the ED if symptoms worsen or change. Assessment/Plan Abdominal pain (R10.9: Unspecified abdominal pain) Orders: dicyclomine, 20 mg = 1 tab(s), Oral, TID, X 7 day(s), # 21 tab(s), Refills(s) 0, Pharmacy: [id number], 152.4, cm, 01/18/23 9:39:00 EDT, Height/Length Dosing, 68, kg, 01/18/23 9:39:00 EDT, Weight Dosing ketorolac, 30 mg = 1 mL, Injection, IV Push, Once, Stop date 01/18/23 10:34:00 EDT, STAT, Start date 01/18/23 10:34:00 EDT, 01/18/23 10:34:00 EDT Sodium Chloride 0.9% intravenous solution, 1,000 mL, Soln-IV, IV, Once, Stop date 01/18/23 9:53:00 EDT, STAT, Start date 01/18/23 9:53:00 EDT, Infuse over 61, minute(s) Automated Diff Basic Metabolic Panel Beta hCG Qual CBC w/ Auto Diff CT Abdomen/Pelvis w/ Contrast eGFR Extra Blue Tube Hepatic Function Panel Lipase Level UA With Cult Reflex Medications Administered Given ketorolac 30 mg/mL Inj 1 mL, 30 mg, IV Push NS 1000 ml Bolus, 1000 mL, IV Disposition Plan Patient Discharge Condition Disposition: Discharged home Condition: Improved and stable Counseled: Patient and/or family were counseled to workup, results, treatment plan and follow-up recommendations Discharge Prescription List Prescriptions dicyclomine 20 mg Tab, 20 mg= 1 tab(s), Oral, TID Follow-up With When Contact Information MARVIN CUEVAS In 3 days 01/21/2023 EDT [address] [place] [address] Business (1) Additional Instructions: Patient Education (more content not included)... Normal [facility] Comment on above: Result Comment: Elec tronically Signed By: Guicho Dey PA-C\.br\Date and Time Signed: 01/18/23 13:24 EDT\.br\Electronically Co-Signed By: George Mills M.D.\.br\Date and Time Co-Signed: 01/18/23 15:49 EDT ED Patient Education Noteon 01-18-2023 ED Patient Education Note Gastroenterolo gy Abdominal Pain, Adult Pain in the abdomen (abdominal pain) can be caused by many things. Often, abdominal pain is not serious and it gets better with no treatment or by being treated at home. However, sometimes abdominal pain is serious. Your health care provider will ask questions about your medical history and do a physical exam to try to determine the cause of your abdominal pain. Follow these instructions at home: Medicines ? Take dbqc-zcu-rpkysbg and prescription medicines only as told by your health care provider. ? Do not take a laxative unless told by your health care provider. General instructions ? Watch your condition for any changes. ? Drink enough fluid to keep your urine pale yellow. ? Keep all follow-up visits as told by your health care provider. This is important. Contact a health care provider if: ? Your abdominal pain changes or gets worse. ? You are not hungry or you lose weight without trying. ? You are constipated or have diarrhea for more than 2?3 days. ? You have pain when you urinate or have a bowel movement. ? Your abdominal pain wakes you up at night. ? Your pain gets worse with meals, after eating, or with certain foods. ? You are vomiting and cannot keep anything down. ? You have a fever. ? You have blood in your urine. Get help right away if: ? Your pain does not go away as soon as your health care provider told you to expect. ? You cannot stop vomiting. ? Your pain is only in areas of the abdomen, such as the right side or the left lower portion of the abdomen. Pain on the right side could be caused by appendicitis. ? You have bloody or black stools, or stools that look like tar. ? You have severe pain, cramping, or bloating in your abdomen. ? You have signs of dehydration, such as: ? Dark urine, very little urine, or no urine. ? Cracked lips. ? Dry mouth. ? Sunken eyes. ? Sleepiness. ? Weakness. ? You have trouble breathing or chest pain. Summary ? Often, abdominal pain is not serious and it gets better with no treatment or by being treated at home. However, sometimes abdominal pain is serious. ? Watch your condition for any changes. ? Take wfqz-liy-bgfznam and prescription medicines only as told by your health care provider. ? Contact a health care provider if your abdominal pain changes or gets worse. ? Get help right away if you have severe pain, cramping, or bloating in your abdomen. This information is not intended to replace advice given to you by your health care provider. Make sure you discuss any questions you have with your health care provider. Document Revised: 06/09/2020 Document Reviewed: 08/30/2019 [employer] Patient Education ? 2022 [employer] Normal [facility] ED Patient Summaryon 023 ED Patient Summary [address] [address] Patient Discharge Instructions Person Information Name: PAUL FERGUSON Age: 17 Years Arrival Date: 01/18/2023 09:33:27 Discharge Diagnosis: Abdominal pain Primary Care Physician: MARVIN CUEVAS CNP Provider Information Primary Provider: George Mills M.D. Advanced Yard Associate:Guicho Dey PA-C The exam and treatment you received in the Emergency Department were for an urgent problem and are not intended as complete care. It is important that you follow up with a doctor, nurse practitioner, or physician?s assistant professor of anthropology for ongoing care. If your symptoms become worse or you do not improve as expected and you are unable to reach your usual health care provider, you should return to the Emergency Department. We are available 24 hours a day. PAUL FERGUSON has been given the following list of patient education materials, prescriptions and follow-up instructions: Follow-up Instructions: With: Address: When: MARVIN CUEVAS [address] [place], [place] [id number] Business (1) In 3 days 01/21/2023 In the event that this physician does not participate in your insurance network, please consult with your insurance company to find a nearby participating provider. Patient Education Materials: Abdominal Pain, Adult A MESSAGE TO ALL PATIENTS REGARDING OPIOIDS PRESCRIPTION OPIOIDS: WHAT YOU NEED TO KNOW Prescription opioids can be used to help relieve lvkfxlip-dh-thgxrg pain and are often prescribed following a surgery or injury, or for certain health conditions. These medications can be an important part of the treatment but also come with serious risks. It is important to work with your healthcare provider to make sure you are getting the safest, most effective care. WHAT ARE THE RISKS AND SIDE EFFECTS OF OPIOID USE? Prescription opioids carry serious risks of addiction and overdose, especially with prolonged use. An opioid overdose, often marked by slowed breathing, can cause sudden . The use of prescription opioids can have a number of side effects as well, even when taken as directed: ? Tolerance?meaning you might need to take more of the medication for the same pain relief ? Physical dependence?meaning you have symptoms of withdrawal when a medication is stopped ? Increased sensitivity to pain ? Constipation ? Nausea, vomiting, and dry mouth ? Sleepiness and dizziness ? Confusion ? Depression ? Low levels of testosterone that can result in lower sex drive, energy, and strength ? Itching and sweating RISKS ARE GREATER WITH: ? History of drug misuse, substance use disorder, or overdose ? Mental health conditions (such as depression or anxiety) ? Sleep apnea ? Older age (65 years and older) ? Avoid alcohol while taking prescription opioids. Also, unless specifically advised by your health care provider, medications to avoid include: ? Benzodiazepines (such as Xanax or Valium) ? Muscle relaxants (such as Soma or Flexeril) ? Hypnotics (such as Ambien or Lunesta) ? Other prescription opioids KNOW YOUR OPTIONS Talk to your health care provider about ways to manage your pain that don?t involve prescription opioids. Some of these options may actually work better and have fewer risks and side effects. Options may include: ? Pain relievers such as acetaminophen, ibuprofen, and naproxen ? Some medication that are also used for depression or seizures ? Physical therapy and exercise ? Cognitive behavioral therapy, a psychological, goal-directed approach, in which patients learn how to modify physical, behavioral, and emotional triggers of pain and stress. IF YOU ARE PRESCRIBED OPIOIDS FOR PAIN: ? Never take opioids in greater amounts or more often than prescribed. ? Follow up with your primary health care provider. o Work together to create a plan on how to manage your pain. o Talk about ways to help manage your pain that don?t involve prescription opioids. o Talk about any and all concerns and side effects. ? Help prevent misuse and abuse o Never sell or share prescription opioids. o Never use another person?s prescription opioids. ? Store prescription opioids in a secure place and out of reach of others (this may include visitors, children, friends, and family). ? Safely dispose of unused prescription opioids: Find your community drug take-back program or your pharmacy mail-back program, or flush them down the toilet, following guidance from the Food and Drug Administration (www.fda.gov/Drugs/R esourcesForYou). ? Visit www.cdc.gov/drugover dose to learn about the risks of opioids abuse and overdose. ? If you believe you may be struggling with addiction, tell your health ambulatory care nurse and ask for guidance or call [facility]S [employer] Helpline at 0-753-990-BSMB. (more content not included)... Normal [facility] Hep Func Panelon 01-18-2023 Bilirubin.indirect [Mass or moles/Vol] UTC Abnormal 0.1-0.9 [facility] Comment on above: Result Comment: Resu lt verified by Discern Rule. Performed result UT (Unable to Calculate) was sent as an Alpha code due the inability to calculate a valid numeric value. Performed By: #### 2 824222, [id number], 2007369, 7701763, 1480555, 24155842, 8899419 ####[facility] [address] [place] [address] Albumin [Mass/Vol] 4.4 g/dL Normal 3.3-5.0 [facility] Comment on above: Performed By: #### 2 875520, 90998730, 5963674, 0835412, 8850437, 57996453, 2163957 ####[facility] [address] [place] [address] Albumin/Globulin (S) [Mass conc ratio] 1.4 Normal 1.1-2.2 [facility] Comment on above: Performed By: #### 2 108515, 46765494, 2914970, 0202031, 3219340, 96847554, 2360391 ####[facility] [address] [place] [address] ALP [Catalytic activity/Vol] 86 Int._Unit/L Normal 21-98 [facility] Comment on above: Performed By: #### 2 417199, 83522012, 4303849, 4481750, 2281290, 25864012, 5898344 ####[facility] [address] [place] [address] ALT No additional P-5'-P [Catalytic activity/Vol] 24 Int._Unit/L Normal 6-46 [facility] Comment on above: Performed By: #### 2 167863, 02423133, 7264333, 9130896, 2972709, 47992027, 0944881 ####[address] [place] [address] AST [Catalytic activity/Vol] 22 Int._Unit/L Normal 5-43 [facility] Comment on above: Performed By: #### 2 674743, 20225150, 2888911, 4898326, 5327809, 86322999, 7203006 ####[facility] [address] [place] [address] Bilirubin [Mass/Vol] 0.7 mg/dL Normal 0.0-1.1 [facility] Comment on above: Performed By: #### 2 237564, 86387926, 5648656, 8256532, 6874083, 11409986, 7359098 ####[facility] [address] [place] [address] Globulin (S) [Mass/Vol] 3.2 g/dL Normal 1.4-4.0 [facility] Comment on above: Performed By: #### 2 219023, 33067006, 0411464, 2950274, 9628959, 58765695, 0847891 ####[facility] [address] [place] [address] Protein [Mass/Vol] 7.6 g/dL Normal 6.0-7.8 [facility] Comment on above: Performed By: #### 2 028877, 38671065, 5125827, 2160835, 9625842, 65494910, 2199437 ####[facility] [address] [place] [address] Bilirubin.direct [Mass/Vol] mg/dL Normal 0.1-0.4 [facility] Comment on above: Performed By: #### 2 418133, 42509751, 4906440, 9355790, 4048024, 93778611, 2661015 ####[facility] [address] [place] [address] Lipase Levelon 01-18-2023 Lipase [Catalytic activity/Vol] 27 U/L Normal 13-58 [facility] Comment on above: Performed By: #### 2 910094, 09728040, 7558013, 2133362, 1906531, 25274622, 4936959 ####[facility] [address] [place] [address] UA With Cult Reflexon 2022 Bacteria LM Ql (Urine sed) TRACE Normal Trace [facility] Comment on above: Performed By: #### 1 6633921 ####[facility] [address] [place] [address] Bilirubin Ql (U) Negative Normal Negative [facility] Comment on above: Performed By: #### 1 7064351 ####[facility] [address] [place] [address] Clarity (U) CLEAR Normal Clear [facility] Comment on above: Performed By: #### 1 0759483 ####[facility] [address] [place] [address] Color (U) STRAW Abnormal Yellow [facility] Comment on above: Performed By: #### 1 2124701 ####[facility] [address] [place] [address] Epithelial cells.squamous LM.HPF (Urine sed) [#/Area] 0-2 Normal 0-2 [facility] Comment on above: Performed By: #### 1 0514015 ####[facility] [address] [place] [address] Glucose Test strip (U) [Mass/Vol] Negative Normal Negative [facility] Comment on above: Performed By: #### 1 9155881 ####[address] [address] Hemoglobin Ql (U) 1+ Abnormal Negative [facility] Comment on above: Performed By: #### 1 8884332 ####[facility] [address] [place] [address] Ketones (U) [Mass/Vol] Negative Normal Negative [facility] Comment on above: Performed By: #### 1 5924498 ####[address] [address] [place].plasma/[place].RB C (Bld) [Mass ratio] 0-3 Normal 0-3 [facility] Comment on above: Performed By: #### 1 8317044 ####[facility] [address] [place] [address] Mucus Ql (Urine sed) TRACE Normal [facility] Comment on above: Performed By: #### 1 7711760 ####[facility] [address] [place] [address] Nitrite Ql (U) Negative Normal Negative [facility] Comment on above: Performed By: #### 1 2900794 ####[facility] [address] [place] [address] pH (U) 6.5 [pH] Invalid Interpretation Code 5.0-9.0 [facility] Comment on above: Performed By: #### 1 4444675 ####[address] [place] [address] Protein (U) [Mass/Vol] Negative Normal Negative [facility] Comment on above: Performed By: #### 1 2772364 ####[address] [address] Specific gravity (U) [Rel density] <=1.005 Invalid Interpretation Code 1.005-1.030 [facility] Comment on above: Performed By: #### 1 8656847 ####[address] [place] [address] Type of Urine collection method Clean Catch Normal [facility] Comment on above: Performed By: #### 1 7227297 ####[address] Urobilinogen Qn (U) 0.2 {Олег'U}/dL Normal 0.0-1.0 [facility] Comment on above: Performed By: #### 1 6607416 ####[address] WBC Auto Ql (U) Negative Normal Negative [facility] Comment on above: Performed By: #### 1 3287767 ####[address] WBC LM.HPF (Urine sed) [#/Area] 0-5 Normal 0-5 [facility] Comment on above: Performed By: #### 1 6396498 ####[address] [address] eGFRon 01-18-2023 GFR/1.73 sq M.predicted among non-blacks MDRD (S/P/Bld) [Vol rate/Area] 128 mL/min/1.73 m2 Normal >=59 Fis [facility] Comment on above: Order Comment: Order added by Discern Expert. Result Comment: Backfiller sai kidney disease could be indicated at eGFR's of less than 60 mL/min/1.73m2. Kidney failure is indicated at less than 15 mL/min/1.73m2. Performed By: #### 2 727469, 15779125, 6447273, 8183159, 5039752, 04904122, 2522023 ####[address] [place] [address] Provider Letteron 12-26-2022 Provider Letter December 26, 2022 PAUL FERGUSON [address] [place] [address] : 2005 Dear Paul , We have been trying to reach you with no success. It is important that you return our call [phone] regarding your results upon receiving this letter. Also, at the time of your call, please provide us with your current information. Thank you for your prompt attention to this matter. Sincerely, [facility] [address] [place] [address] [facility] Holter Monitoron 12-24-2022 Holter Monitor [id number]#1.00CD:127 [facility] Holter Monitoron 12-20-2022 Holter Monitor 48 HOUR HOLTER MONITOR ORDERING: Marvin Cuevas CNP INTERPRETING: Chuy Murphy M.D. INDICATIONS: Chest pain. DATE OF SERVICE: 12/13/2022 to 12/15/2022 RESULTS: The predominant rhythm throughout the study was normal sinus rhythm with a minimum heart rate of 44 beats per minute and a maximum of 159 beats per minute. The patient had 0% atrial fibrillation documented. Ventricular ectopy: The patient had 2 isolated premature ventricular contractions noted. Supraventricular ectopy: The patient had a single isolated premature atrial contraction documented. The patient had several symptoms of palpitations which corresponded to sinus tachycardia. The patient did have some sinus arrhythmia which appeared to be asymptomatic. No ventricular tachycardia noted. CONCLUSIONS: 1. Unremarkable 48 hour Holter monitor. The patient had rare premature atrial contraction and premature ventricular contractions noted as described above. 2. The patient had no atrial fibrillation, atrial flutter, or ventricular tachycardia. 3. The patient did have some sinus arrhythmias and complained of palpitations which corresponded to sinus tachycardia. 4. Recommend clinical correlation or alternative mode of testing if clinically indicated. READ BY: Lanie Ace Dictated: 12/20/2022 [id number] Transcribed: 12/20/2022 cc:Marvin Cuevas CNP [facility] Comment on above: Result Comment: Elec tronically Signed By: GARIMA GRAYSON, Chuy Toth\.br\Date and Time Signed: 12/20/22 13:39 EDT Consent for Treatmenton 12-03 Consent for Treatment [id number] #1.00CD:127 Normal [facility] CHEMISTRYOrdered By: Qian Washington on 06-03-2022 Albumin [Mass/Vol] 4.7 g/dL Normal 3.3 - 5.0 gm/dL [facility] Albumin/Globulin [Mass ratio] 1.5 {ratio} Normal 1.1 - 2.2 [facility] ALP [Catalytic activity/Vol] 89 [iU]/d Normal 21 - 98 Int._Unit/L [facility] ALT No additional P-5'-P [Catalytic activity/Vol] 29 [iU]/d Normal 6 - 46 Int._Unit/L [facility] Anion gap [Moles/Vol] 12 mmol/L Normal 6 - 16 mEq/L [facility] AST [Catalytic activity/Vol] 25 [iU]/d Normal 5 - 43 Int._Unit/L [facility] Bilirubin [Mass/Vol] 0.4 mg/dL Normal 0.0 - 1 .1 mg/dL [facility] Calcium [Mass/Vol] 9.6 mg/dL Normal 8.9 - 11. 1 mg/dL [facility] Chloride [Moles/Vol] 107 mmol/L Normal 101 - 1 11 mmol/L [facility] CO2 [Moles/Vol] 25 mmol/L Normal 21 - 31 mmol/L [facility] Creatinine [Mass/Vol] 0.8 mg/dL Normal 0.5 - 1.3 mg/dL [facility] Globulin (S) [Mass/Vol] 3.1 g/dL Normal 1.4 - 4.0 gm/dL [facility] Glucose [Mass/Vol] 91 mg/dL Normal 55 - 199 mg/dL [facility] Potassium [Moles/Vol] 4.1 mmol/L Normal 3.5 - 5.3 mmol/L [facility] Protein [Mass/Vol] 7.8 g/dL Normal 6.0 - 7.8 gm/dL [facility] Sodium [Moles/Vol] 140 mmol/L Normal 135 - 145 mmol/L [facility] TSH Qn 1.47 m[IU]/L Normal 0.34 - 5.60 mcIU/mL [facility] Urea nitrogen [Mass/Vol] 14 mg/dL Normal 5 - 21 mg/dL [facility] Urea nitrogen/Creatinine [Mass ratio] 18 mg/mg Normal 10 - 20 [facility] CHEMISTRYOrdered By: SYSTEM SYSTEM on 06-03-2022 GFR/1.73 sq M.predicted among blacks MDRD (S/P/Bld) [Vol rate/Area] mL/min/1.73 m2 Normal >=59mL/min/ 1.73 m2 [facility] Chem S GFR/1.73 sq M.predicted among non-blacks MDRD (S/P/Bld) [Vol rate/Area] mL/min/1.73 m2 Normal >=59mL/min/ 1.73 m2 [facility] [place] Chem S HEMATOLOGYOrdered By: SYSTEM SYSTEM on 06-03-2022 Basophils/100 WBC (Bld) 0.3 % Normal 0.0 - 2.0 % [facility] HemeAutoSS Basophils/Leukocytes Auto (Bld) [Pure # fraction] 0.0 E9/L Normal 0.0 - 0.2 E9/L [facility] HemeAutoSS Eosinophils/100 WBC (Bld) 0.4 % Normal 0.0 - 8.0 % [facility] HemeAutoSS Eosinophils/Leukocytes Auto (Bld) [Pure # fraction] 0.0 E9/L Normal 0.0 - 0.5 E9/L [facility] HemeAutoSS Lymphocytes/100 WBC (Bld) 16.3 % Normal 14 .0 - 50.0 % [facility] Lymphocytes/Leukocytes Auto (Bld) [Pure # fraction] 1.7 E9/L Normal 1.0 - 4.0 E9/L [facility] Monocytes/100 WBC (Bld) 5.3 % Normal 4.0 - 14.0 % [facility] Monocytes/Leukocytes Auto (Bld) [Pure # fraction] 0.5 E9/L Normal 0.2 - 1.0 E9/L [facility] Neutrophils/100 WBC (Bld) 77.7 % High 36 .0 - 75.0 % [facility] Neutrophils/Leukocytes Auto (Bld) [Pure # fraction] 7.9 E9/L High 2.0 - 7.5 E9/L [facility] HEMATOLOGYOrdered By: Rosalva Hernandez on 06-03-2022 Erythrocyte distribution width (RBC) [Ratio] 12.9 % Normal 10.9 - 14.2 % [facility] Hematocrit (Bld) [Volume fraction] 42.3 % Normal 34.0 - 46.0 % [facility] Hemoglobin (Bld) [Mass/Vol] 13.8 g/dL Normal 12.0 - 16.0 gm/dL [facility] MCH (RBC) [Entitic mass] 29.7 pg Normal 27. 0 - 34.0 pg [facility] MCHC (RBC) [Mass/Vol] 32.7 g/dL Normal 31.4 - 36.0 gm/dL [facility] MCV (RBC) [Entitic vol] 90.9 fL Normal 80.0 - 100.0 fL [facility] Platelet mean volume (Bld) [Entitic vol] 6.6 fL Normal 6.4 - 10.8 fL [facility] Platelets (Bld) [#/Vol] 389.0 E9/L Normal 150. 0 - 500.0 E9/L [facility] RBC (Bld) [#/Vol] 4.6 E12/L Normal 4.3 - 5.9 E12/L [facility] WBC corrected for nucl RBC Auto (Bld) [#/Vol] 10.2 E9/L Normal 4.0 - 11.0 E9/L [facility] CHEMISTRYOrdered By: SYSTEM SYSTEM on 11-20-2021 Albumin [Mass/Vol] 4.9 g/dL Normal 3.3 - 5.0 gm/dL [facility] Albumin/Globulin [Mass ratio] 1.5 {ratio} Normal 1.1 - 2.2 [facility] ALP [Catalytic activity/Vol] 96 [iU]/d Normal 21 - 98 Int._Unit/L [facility] ALT No additional P-5'-P [Catalytic activity/Vol] 40 [iU]/d Normal 6 - 46 Int._Unit/L [facility] Anion gap [Moles/Vol] 13 mmol/L Normal 6 - 16 mEq/L [facility] AST [Catalytic activity/Vol] 33 [iU]/d Normal 5 - 43 Int._Unit/L [facility] Bilirubin [Mass/Vol] 0.2 mg/dL Normal 0.0 - 1 .1 mg/dL [facility] Bilirubin.direct [Mass/Vol] 0.1 mg/dL Normal 0.1 - 0.4 mg/dL [facility] Bilirubin.indirect [Mass or moles/Vol] 0.1 mg/dL Normal 0.1 - 0.9 mg/dL [facility] Calcium [Mass/Vol] 9.4 mg/dL Normal 8.9 - 11. 1 mg/dL [facility] Chloride [Moles/Vol] 103 mmol/L Normal 101 - 1 11 mmol/L [facility] CO2 [Moles/Vol] 22 mmol/L Normal 21 - 31 mmol/L [facility] Creatinine [Mass/Vol] 0.9 mg/dL Normal 0.5 - 1.3 mg/dL [facility] GFR/1.73 sq M.predicted among blacks MDRD (S/P/Bld) [Vol rate/Area] mL/min/1.73 m2 Normal >=59mL/min/ 1.73 m2 [facility] Chem S GFR/1.73 sq M.predicted among non-blacks MDRD (S/P/Bld) [Vol rate/Area] mL/min/1.73 m2 Normal >=59mL/min/ 1.73 m2 [facility] Chem S Globulin (S) [Mass/Vol] 3.3 g/dL Normal 1.4 - 4.0 gm/dL [facility] Glucose [Mass/Vol] 96 mg/dL Normal 55 - 199 mg/dL [facility] Lipase [Catalytic activity/Vol] 23 U/L Normal 13 - 58 unit/L [facility] Potassium [Moles/Vol] 3.1 mmol/L Low 3.5 - 5.3 mmol/L [facility] Protein [Mass/Vol] 8.2 g/dL High 6.0 - 7.8 gm/dL [facility] Sodium [Moles/Vol] 135 mmol/L Normal 135 - 145 mmol/L [facility] Urea nitrogen [Mass/Vol] 11 mg/dL Normal 5 - 21 mg/dL [facility] Urea nitrogen/Creatinine [Mass ratio] 12 mg/mg Normal 10 - 20 [facility] HEMATOLOGYOrdered By: SYSTEM SYSTEM on 11-20-2021 Basophils/100 WBC (Bld) 0.5 % Normal 0.0 - 2.0 % [facility] Basophils/Leukocytes Auto (Bld) [Pure # fraction] 0.1 E9/L Normal 0.0 - 0.2 E9/L [facility] Eosinophils/100 WBC (Bld) 0.7 % Normal 0.0 - 8.0 % [facility] Eosinophils/Leukocytes Auto (Bld) [Pure # fraction] 0.1 E9/L Normal 0.0 - 0.5 E9/L [facility] Lymphocytes/100 WBC (Bld) 27.3 % Normal 14 .0 - 50.0 % [facility] Lymphocytes/Leukocytes Auto (Bld) [Pure # fraction] 2.8 E9/L Normal 1.0 - 4.0 E9/L [facility] Monocytes/100 WBC (Bld) 6.4 % Normal 4.0 - 14.0 % [facility] Monocytes/Leukocytes Auto (Bld) [Pure # fraction] 0.7 E9/L Normal 0.2 - 1.0 E9/L [facility] Neutrophils/100 WBC (Bld) 65.1 % Normal 36 .0 - 75.0 % [facility] Neutrophils/Leukocytes Auto (Bld) [Pure # fraction] 6.8 E9/L Normal 2.0 - 7.5 E9/L [facility] HEMATOLOGYOrdered By: Megan galvin on 11-20-2021 Erythrocyte distribution width (RBC) [Ratio] 12.7 % Normal 10.9 - 14.2 % [facility] Hematocrit (Bld) [Volume fraction] 42.1 % Normal 34.0 - 46.0 % [facility] Hemoglobin (Bld) [Mass/Vol] 14.0 g/dL Normal 12.0 - 16.0 gm/dL [facility] MCH (RBC) [Entitic mass] 29.3 pg Normal 27. 0 - 34.0 pg [facility] MCHC (RBC) [Mass/Vol] 33.3 g/dL Normal 31.4 - 36.0 gm/dL [facility] MCV (RBC) [Entitic vol] 88.1 fL Normal 80.0 - 100.0 fL [facility] Platelet mean volume (Bld) [Entitic vol] 6.4 fL Normal 6.4 - 10.8 fL [facility] Platelets (Bld) [#/Vol] 457.0 E9/L Normal 150. 0 - 500.0 E9/L [facility] RBC (Bld) [#/Vol] 4.8 E12/L Normal 4.3 - 5.9 E12/L [facility] WBC corrected for nucl RBC Auto (Bld) [#/Vol] 10.4 E9/L Normal 4.0 - 11.0 E9/L [facility] SEROLOGYOrdered By: Megan agrawal on 11-20-2021 HCG.beta subunit (U) [Moles/Vol] Negative Normal [facility] URINALYSISOrdered By: Dylan pedraza on 11-20-2021 Bacteria LM Ql (Urine sed) Trace /HPF Normal Trace/HPF [facility]A Auto SS Bilirubin Ql (U) Negative (11/20/21 11:49 PM) Normal Negative [facility]A Auto SS Clarity (U) Clear (11/20/21 11:49 PM) Normal Clear [facility] Color (U) Yellow (11/20/21 11:49 PM) Normal Yellow [facility]A Auto SS Epithelial cells.squamous LM.HPF (Urine sed) [#/Area] 3-4 /HPF Normal 0-2/HPF [facility] Glucose Test strip (U) [Mass/Vol] Negative (11/20/21 11:49 PM) Normal Negative [facility]A [facility] SS Hemoglobin Ql (U) Negative (11/20/21 11:49 PM) Normal Negative [facility] Ketones (U) [Mass/Vol] Negative (11/20/21 11:49 PM) Normal Negative [facility] UA Auto SS [place].plasma/[place].RB C (Bld) [Mass ratio] 0-3 /HPF Normal 0-3/HPF [facility] UA Aut o SS Nitrite Ql (U) Negative (11/20/21 11:49 PM) Normal Negative [facility] pH (U) 6.0 *NA* (11/20/21 11:49 PM) Invalid Interpretation Code 5.0 - 9.0 [facility] Protein (U) [Mass/Vol] Negative (11/20/21 11:49 PM) Normal Negative [facility] [place] UA Auto SS Specific gravity (U) [Rel density] >=1.030 *NA* (11/20/21 11:49 PM) Invalid Interpretation Code 1.005 - 1.030 [facility] [place] [facility] UA Auto SS UA Spec Desc Clean Catch (11/20/21 11:49 PM) Normal [facility] [place] UA Auto SS Urobilinogen Qn (U) [id number] {Олег'U}/dL Normal 0.0 - 1.0 EU/dL [facility] UA Auto SS WBC Auto Ql (U) Negative (11/20/21 11:49 PM) Normal Negative [facility] [place] [facility] UA Auto SS WBC LM.HPF (Urine sed) [#/Area] 0-5 /HPF Normal 0-5/HPF [facility] [place] UA Auto SS Vital Signs Date Time Vital Sign Value Performing Clinician Facility 05-19-2023 21:45-0500 Diastolic blood pressure 78 mm[Hg] PHYSICIAN [facility] 05-19-2023 21:45-0500 Heart rate 88 /min PHYSICIAN [facility] 05-19-2023 21:45-0500 Respiratory rate 16 /min PHYSICIAN [facility] 05-19-2023 21:45-0500 SaO2% (BldA) [Mass fraction] 98 % PHYSICIAN [facility] 05-19-2023 21:45-0500 Systolic blood pressure 104 mm[Hg] PHYSICIAN [facility] 05-19-2023 17:36-0500 Body temperature 98.1 [degF] PHYSICIAN [facility] 05-19-2023 17:35-0500 Body height 154.94 cm PHYSICIAN [facility] 05-19-2023 17:35-0500 Body weight 63.8 kg PHYSICIAN [facility] 04-30-2023 01:02-0500 Diastolic blood pressure 61 mm[Hg] Kan Pins [facility] 04-30-2023 01:02-0500 Heart rate 96 /min [facility] 04-30-2023 01:02-0500 Mean blood pressure 78 mm[Hg] Kan [facility] 04-30-2023 01:02-0500 Respiratory rate 16 /min [facility] 04-30-2023 01:02-0500 SaO2% (BldA) [Mass fraction] 97 % [facility] 04-30-2023 01:02-0500 Systolic blood pressure 112 mm[Hg] [facility] 04-30-2023 00:17-0500 Diastolic blood pressure 76 mm[Hg] [facility] 04-30-2023 00:17-0500 Heart rate 105 /min [facility] 04-30-2023 00:17-0500 Mean blood pressure 93 mm[Hg] [facility] 04-30-2023 00:17-0500 Respiratory rate 18 /min [facility] 04-30-2023 00:17-0500 SaO2% (BldA) [Mass fraction] 99 % [facility] 04-30-2023 00:17-0500 Systolic blood pressure 128 mm[Hg] [facility] 04-29-2023 23:48-0500 Diastolic blood pressure 93 mm[Hg] [facility] 04-29-2023 23:48-0500 Heart rate 117 /min [facility] 04-29-2023 23:48-0500 Mean blood pressure 105 mm[Hg] [facility] 04-29-2023 23:48-0500 Respiratory rate 24 /min [facility] 04-29-2023 23:48-0500 SaO2% (BldA) [Mass fraction] 100 % [facility] 04-29-2023 23:48-0500 Systolic blood pressure 128 mm[Hg] [facility] 04-29-2023 23:29-0500 Heart rate 114 /min [facility] 04-29-2023 23:00-0500 Body temperature 97.88 [degF] [facility] 04-29-2023 23:00-0500 bodymassindex 1.08 kg/m2 [facility] Comment on above: [facility]: [facility]05[facility] Heart rate 155 /min [facility] 04-29-2023 23:00-0500 Height/Length Percentile 12.95 1 [facility] Comment on above: Result Comment: ^~:!Percentile Source [facility] 04-29-2023 23:00-0500 Height/Length Z-Score -1.13 1 [facility] Comment on above: Result Comment: ^~:!ZScore [facility] 04-29-2023 23:00-0500 weight 0.62 1 [facility] Comment on above: Result Comment: ^~:![facility]Score [facility] 04-29-2023 23:00-0500 Weight Percentile 73.28 % [facility] Comment on above: Result Comment: ^~:!Percentile Source [facility] 06-03-2022 11:17-0500 Diastolic blood pressure 82 mm[Hg] MARVIN SIDELL [facility] 06-03-2022 11:17-0500 Mean blood pressure 96 mm[Hg] MARVIN SIDELL [facility] 06-03-2022 11:17-0500 Systolic blood pressure 124 mm[Hg] MARVIN SIDELL [facility] 06-03-2022 11:02-0500 Blood Pressure Location MARVIN SIDELL [facility] 06-03-2022 11:02-0500 Body temperature 98.96 [degF] MARVIN SIDELL [facility] 06-03-2022 11:02-0500 bodymassindex 1.67 MARVIN SIDELL [facility] Comment on above: Result Comment: ^~:![facility] 06-03-2022 11:02-0500 Diastolic blood pressure 100 mm[Hg] MARVIN SIDELL [facility] 06-03-2022 11:02-0500 Heart rate 92 /min MARVIN SIDELL [facility] 06-03-2022 11:02-0500 Height/Length Percentile 5.73 MARVIN SIDELL [facility] Comment on above: Result Comment: ^~:!Percentile Source [facility] 06-03-2022 11:02-0500 Height/Length Z-Score -1.58 MARVIN SIDELL [facility] Comment on above: [facility] 11:02-0500 SaO2% (BldA) [Mass fraction] 99 % MARVIN SIDELL [facility] 06-03-2022 11:02-0500 Systolic blood pressure 138 mm[Hg] MARVIN SIDELL [facility] 06-03-2022 11:02-0500 weight 1.23 MARVIN SIDELL [facility] Comment on above: Result Comment: ^~:![facility] 06-03-2022 11:02-0500 Weight Percentile 89.02 % MARVIN SIDELL [facility] Comment on above: Result Comment: ^~:!Percentile Source [facility] 11-21-2021 04:27-0400 Body temperature 98.24 [degF] [facility] 11-21-2021 04:27-0400 Diastolic blood pressure 69 mm[Hg] [facility] 11-21-2021 04:27-0400 Heart rate 92 /min [facility] 11-21-2021 04:27-0400 Respiratory rate 16 /min [facility] 11-21-2021 04:27-0400 SaO2% (BldA) [Mass fraction] 98 % [facility] 11-21-2021 04:27-0400 Systolic blood pressure 117 mm[Hg] [facility] 11-21-2021 01:30-0400 Diastolic blood pressure 84 mm[Hg] [facility] 11-21-2021 01:30-0400 Heart rate 97 /min [facility] 11-21-2021 01:30-0400 Mean blood pressure 96 mm[Hg] [facility] 11-21-2021 01:30-0400 SaO2% (BldA) [Mass fraction] 96 % [facility] 11-21-2021 01:30-0400 Systolic blood pressure 120 mm[Hg] [facility] 11-21-2021 01:00-0400 Diastolic blood pressure 81 mm[Hg] [facility] 11-21-2021 01:00-0400 Heart rate 100 /min [facility] 11-21-2021 01:00-0400 Mean blood pressure 92 mm[Hg] [facility] 11-21-2021 01:00-0400 SaO2% (BldA) [Mass fraction] 95 % [facility] 11-21-2021 01:00-0400 Systolic blood pressure 115 mm[Hg] [facility] 11-21-2021 00:00-0400 Heart rate 107 /min [facility] 11-21-2021 00:00-0400 Mean blood pressure 99 mm[Hg] [facility] 11-21-2021 00:00-0400 SaO2% (BldA) [Mass fraction] 94 % Kan D[facility]az [facility] 11-21-2021 00:00-0400 Systolic blood pressure 129 mm[Hg] [facility] 11-20-2021 23:09-0400 Body temperature 98.42 [degF[facility] 11-20-2021 23:09-0400 Respiratory rate 20 /min [facility] Encounters Encounter Date Encounter Type Care Provider Facility Start: 06-19-2023 ambulatory George Mills Facility :[facility] Start: 06-05-2023 End: 06-06-2023 ambulatory Svitlana Young [facility] Start: 05-26-2023 End: 05-26-2023 ambulatory PRANAY VENTURA Not Available Start: 05-19-2023 End: 05-19-2023 Emergency department patient visit PHYSICIAN JOSH LECHUGA Facility:[facility] Start: 05-19-2023 End: 05-19-2023 Emergency department patient visit PHYSICIAN JOSH LECHUGA [facility] Work Phone: Start: 05-16-2023 End: 05-16-2023 Emergency department patient visit Tr Herr Facility:[facility] Start: 04-30-2023 End: 04-30-2023 Emergency department patient visit Kan RauschShweta Díaz Facility:[facility] Start: 04-29-2023 End: 04-30-2023 Emergency department patient visit Kan RauschShweta [facility] Start: 04-22-2023 End: 04-22-2023 ambulatory CHRISTINE KNIGHT Not Available Start: 01-18-2023 End: 01-18-2023 Emergency department patient visit George Mills Facility:[facility] Start: 12-13-2022 End: 12-14-2022 ambulatory MARVIN CUEVAS Facility:[facility] Start: 12-13-2022 End: 12-13-2022 Patient encounter procedure MARVIN CUEVAS [facility] Start: 07-05-2022 ambulatory MARVIN CUEVAS Facility :[facility] Start: 06-12-2022 End: 07-03-2022 Pre-admission assessment MARVIN CUEVAS [facility] Start: 06-04-2022 End: 06-04-2022 ambulatory [facility] Start: 06-03-2022 End: 06-03-2022 Patient encounter procedure MARVIN CUEVAS [facility] Start: 12-07-2021 End: 12-07-2021 Patient encounter procedure Melly Anne [facility] Start: 11-21-2021 End: 11-21-2021 Emergency department patient visit Kan Díaz [facility] Start: 11-20-2021 End: 11-21-2021 Emergency department patient visit Kan Díaz [facility] Procedures Date Procedure Procedure Detail Performing Clinician Start: 05-19-2023 Screening for occult blood in feces PHYSICIAN NO FAMILY Plan of Treatment Date Care Activity Detail Author Patient Education Diarrhea, Adult ED [facility] Work Phone: Patient referral [facility] Work Phone: Immunizations Immunization Date Immunization Notes Care Provider Isael pete 02-14-2016 HPV, unspecified formulation Kan Díaz [facility] 08-10-2008 diphtheria, tetanus toxoids and acellular pertussis vaccine [facility] 08-10-2008 measles, mumps and rubella virus vaccine [facility] 08-10-2008 poliovirus vaccine, unspecified formulation [facility] 08-10-2008 varicella virus vaccine [facility] 10-24-2004 diphtheria, tetanus toxoids and acellular pertussis vaccine [facility] 10-24-2004 haemophilus influenz ae type b vaccine, PRP-OMP conjugate Kan Bre [facility] 10-24-2004 measles, mumps and rubella virus vaccine [facility] 10-24-2004 varicella virus vaccine [facility] 03-08-2004 diphtheria, tetanus toxoids and acellular pertussis vaccine [facility] 03-08-2004 haemophilus influenz ae type b vaccine, PRP-OMP conjugate [facility] 03-08-2004 hepatitis B vaccine, pediatric or pediatric/adolescent dosage [facility] 03-08-2004 poliovirus vaccine, unspecified formulation [facility] Bre [facility] 01-05-2004 diphtheria, tetanus toxoids and acellular pertussis vaccine [facility] 01-05-2004 haemophilus influenz ae type b vaccine, PRP-OMP conjugate Kan Bre [facility] 01-05-2004 poliovirus vaccine, unspecified formulation Kan Bre [facility] 2003 diphtheria, tetanus toxoids and acellular pertussis vaccine [facility] 2003 haemophilus influenz ae type b vaccine, PRP-OMP conjugate [facility] 2003 hepatitis B vaccine, pediatric or pediatric/adolescent dosage [facility] 2003 poliovirus vaccine, unspecified formulation [facility] 2003 hepatitis B vaccine, pediatric or pediatric/adolescent dosage [facility] Payers Date Payer Category Payer Medicaid [id number] 2023 Private Health Insurance 2022 Unknown 2022 Unknown [id number] 2021 Self-pay 2003 Unknown [id number] 2003 Unknown [id number] 2.16.84 [id number] 2003 Unknown [id number] 2003 Unknown [id number] 2.16.8 [id number] 2003 Unknown [id number] 2.16.8 [id number] 2003 Unknown [id number] 2.16.8 [id number] 2003 Unknown [id number] 2.16.8 [id number] 2003 Unknown [id number] 2.16.8 [id number] 2003 Unknown [id number] 2.16.8 [id number] Unknown [id number] Unknown [id number] 2.16.8 [id number] Social History Date Type Detail Facility Tobacco smoking status No Smokin g Status Entered [facility] Sex Assigned At Female [facility] Start: 06-03-2022 Tobacco smoking status Never s moked tobacco (finding) [facility] Tobacco smoking status Never [facility] Start: 05-19-2023 [facility] Start: 2003 Sex Assigned At Female F [facility] Functional Status Date Assessment Result Facility 04-29-2023 Functional Status N/A [facility] 06-03-2022 Functional Status N/A [facility] 11-21-2021 Functional Status N/A [facility] 11-20-2021 Functional Status N/A [facility] Clinical Notes 11-21-2021 to 04-30-2023 Note Date & Type Note Facility 04-30-2023 Hospital Discharg e instructions Patient Education 04/30/2023 01:12:28 Managing Anxiety, Adult Managing Anxiety, Adult After being diagnosed with anxiety, you may be relieved to know why you have felt or behaved a certain way. You may also feel overwhelmed about the treatment ahead and what it will mean for your life. With care and support, you can manage this condition. How to manage lifestyle changes Managing stress and anxiety Stress is your body's reaction to life changes and events, both good and bad. Most stress will last just a few hours, but stress can be ongoing and can lead to more than just stress. Although stress can play a major role in anxiety, it is not the same as anxiety. Stress is usually caused by something external, such as a deadline, test, or competition. Stress normally passes after the triggering event has ended. Anxiety is caused by something internal, such as imagining a terrible outcome or worrying that something will go wrong that will devastate you. Anxiety often does not go away even after the triggering event is over, and it can become long-term (chronic) worry. It is important to understand the differences between stress and anxiety and to manage your stress effectively so that it does not lead to an anxious response. Talk with your health care provider or a counselor to learn more about reducing anxiety and stress. He or she may suggest tension reduction techniques, such as: Music therapy. Spend time creating or listening to music that you enjoy and that inspires you. Mindfulness-based meditation. Practice being aware of your normal breaths while not trying to control your breathing. It can be done while sitting or walking. Centering prayer. This involves focusing on a word, phrase, or sacred image that means something to you and brings you peace. Deep breathing. To do this, expand your stomach and inhale slowly through your nose. Hold your breath for 3 5 seconds. Then exhale slowly, letting your stomach muscles relax. Self-talk. Learn to notice and identify thought patterns that lead to anxiety reactions and change those patterns to thoughts that feel peaceful. Muscle relaxation. Taking time to tense muscles and then relax them. Choose a tension reduction technique that fits your lifestyle and personality. These techniques take time and practice. Set aside 5 15 minutes a day to do them. Therapists can offer counseling and training in these techniques. The training to help with anxiety may be covered by some insurance plans. Other things you can do to manage stress and anxiety include: Keeping a stress diary. This can help you learn what triggers your reaction and then learn ways to manage your response. Thinking about how you react to certain situations. You may not be able to control everything, but you can control your response. Making time for activities that help you relax and not feeling guilty about spending your time in this way. Doing visual imagery. This involves imagining or creating mental pictures to help you relax. Practicing yoga. Through yoga poses, you can lower tension and promote relaxation. Medicines Medicines can help ease symptoms. Medicines for anxiety include: Antidepressant medicines. These are usually prescribed for long-term daily control. Anti-anxiety medicines. These may be added in severe cases, especially when panic attacks occur. Medicines will be prescribed by a health care provider. When used together, medicines, psychotherapy, and tension reduction techniques may be the most effective treatment. Relationships Relationships can play a big part in helping you recover. Try to spend more time connecting with trusted friends and family members. Consider going to couples counseling if you have a partner, taking family education classes, or going to family therapy. Therapy can help you and others better understand your condition. How to recognize changes in your anxiety Everyone responds differently to treatment for anxiety. Recovery from anxiety happens when symptoms decrease and stop interfering with your daily activities at home or work. This may mean that you will start to: Have better concentration and focus. Worry will interfere less in your daily thinking. Sleep better. Be less irritable. Have more energy. Have improved memory. It is also important to recognize when your condition is getting worse. Contact your health care provider if your symptoms interfere with home or work and you feel like your condition is not improving. Follow these instructions at home: Activity Exercise. Adults should do the following: ?Exercise for at least 150 minutes each week. The exercise should increase your heart rate and make you sweat (moderate-intensity exercise). ?Strengthening exercises at least twice a week. Get the right amount and quality of sleep. Most adults need 7 9 hours of sleep each night. Lifestyle Eat a healthy diet that includes plenty of vegetables, fruits, whole grains, low-fat dairy products, and lean protein. ?Do not eat a lot of foods that are high in fats, added sugars, or salt (sodium). Make choices that simplify your life. Do not use any products that contain nicotine or tobacco. These products include cigarettes, chewing tobacco, and vaping devices, such as e-cigarettes. If you need help quitting, ask your health care provider. Avoid caffeine, alcohol, and certain rnib-gmn-culefqh cold medicines. These may make you feel worse. Ask your pharmacist which medicines to avoid. General instructions Take aamv-oph-attroff and prescription medicines only as told by your health care provider. Keep all follow-up visits. This is important. Where to find support You can get help and support from these sources: Self-help groups. Online and community organizations. A trusted spiritual leader. Couples counseling. Family education classes. Family therapy. Where to find more information You may find that joining a support group helps you deal with your anxiety. The following sources can help you locate counselors or support groups near you: Mental Health [place]: www.mentalhealth[place]ica.net Anxiety and Depression Association of [place] (ADAA): www.adaa.org National [place] on Mental Illness (JUNITO): www.junito.org Contact a health care provider if: You have a hard time staying focused or finishing daily tasks. You spend many hours a day feeling worried about everyday life. You become exhausted by worry. You start to have headaches or frequently feel tense. You develop chronic nausea or diarrhea. Get help right away if: You have a racing heart and shortness of breath. You have thoughts of hurting yourself or others. If you ever feel like you may hurt yourself or others, or have thoughts about taking your own life, get help right away. Go to your nearest emergency department or: Call your local emergency services (533 in the [place] Call a suicide crisis helpline, such as the National Suicide Prevention Lifeline at or 941 in the [place] This is open 24 hours a day in the [place] Text the Crisis Text Line at 258346 (in the [place] Summary Taking steps to learn and use tension reduction techniques can help calm you and help prevent triggering an anxiety reaction. When used together, medicines, psychotherapy, and tension reduction techniques may be the most effective treatment. Family, friends, and partners can play a big part in supporting you. This information is not intended to replace advice given to you by your health care provider. Make sure you discuss any questions you have with your health care provider. Document Revised: 11/14/2021 Document Reviewed: 08/12/2021 [employer] Patient Education 2022 [email or web address] 04/30/2023 01:12:28 Viral Illness, Adult Viral Illness, Adult Viruses are tiny germs that can get into a person's body and cause illness. There are many different types of viruses, and they cause many types of illness. Viral illnesses can range from mild to severe. They can affect various parts of the body. Short-term conditions that are caused by a virus include colds and the flu (influenza). Long-term conditions that are caused by a virus include herpes, shingles, and HIV (human immunodeficiency virus) infection. A few viruses have been linked to certain cancers. What are the causes? Many types of viruses can cause illness. Viruses invade cells in your body, multiply, and cause the infected cells to work abnormally or . When these cells , they release more of the virus. When this happens, you develop symptoms of the illness, and the virus continues to spread to other cells. If the virus takes over the function of the cell, it can cause the cell to divide and grow out of control. This happens when a virus causes cancer. Different viruses get into the body in different ways. You can get a virus by: Swallowing food or water that has come in contact with the virus (is contaminated). Breathing in droplets that have been coughed or sneezed into the air by an infected person. Touching a surface that has been contaminated with the virus and then touching your eyes, nose, or mouth. Being bitten by an insect or animal that carries the virus. Having sexual contact with a person who is infected with the virus. Being exposed to blood or fluids that contain the virus, either through an open cut or during a transfusion. If a virus enters your body, your body's defense system (immune system) will try to fight the virus. You may be at higher risk for a viral illness if your immune system is weak. What are the signs or symptoms? You may have these symptoms, depending on the type of virus and the location of the cells that it invades: Cold and flu viruses: ?Fever. ?Headache. ?Sore throat. ?Muscle aches. ?Stuffy nose (nasal congestion). ?Cough. Digestive system (gastrointestinal) viruses: ?Fever. ?Pain in the abdomen. ?Nausea. ?Diarrhea. Liver viruses (hepatitis): ?Loss of appetite. ?Tiredness. ?Skin or the white parts of your eyes turning yellow (jaundice). Brain and spinal cord viruses: ?Fever. ?Headache. ?Stiff neck. ?Nausea and vomiting. ?Confusion or sleepiness. Skin viruses: ?Warts. ?Itching. ?Rash. Sexually transmitted viruses: ?Discharge. ?Swelling. ?Redness. ?Rash. How is this diagnosed? This condition may be diagnosed based on one or more of the following: Symptoms. Medical history. Physical exam. Blood test, sample of mucus from your lungs (sputum sample), stool sample, or a swab of body fluids or a skin sore (lesion). How is this treated? Viruses can be hard to treat because they live within cells. Antibiotic medicines do not treat viruses because these medicines do not get inside cells. Treatment for a viral illness may include: Resting and drinking plenty of fluids. Medicines to relieve symptoms. These can include zica-qro-ultsovc medicine for pain and fever, medicines for cough or congestion, and medicines to relieve diarrhea. Antiviral medicines. These medicines are available only for certain types of viruses. Some viral illnesses can be prevented with vaccinations. A common example is the flu shot. Follow these instructions at home: Medicines Take jhvq-dqx-fxdrnze and prescription medicines only as told by your health care provider. If you were prescribed an antiviral medicine, take it as told by your health care provider. Do not stop taking the antiviral even if you start to feel better. Be aware of when antibiotics are needed and when they are not needed. Antibiotics do not treat viruses. You may get an antibiotic if your health care provider thinks that you may have, or are at risk for, a bacterial infection and you have a viral infection. ?Do not ask for an antibiotic prescription if you have been diagnosed with a viral illness. Antibiotics will not make your illness go away faster. ?Frequently taking antibiotics when they are not needed can lead to antibiotic resistance. When this develops, the medicine no longer works against the bacteria that it normally fights. General instructions Drink enough fluids to keep your urine pale yellow. Rest as much as possible. Return to your normal activities as told by your health care provider. Ask your health care provider what activities are safe for you. Keep all follow-up visits as told by your health care provider. This is important. How is this prevented? To reduce your risk of viral illness: Wash your hands often with soap and water for at least 20 seconds. If soap and water are not available, use hand microsoft architect. Avoid touching your nose, eyes, and mouth, especially if you have not washed your hands recently. If anyone in your household has a viral infection, clean all household surfaces that may have been in contact with the virus. Use soap and hot water. You may also use bleach that you have added water to (diluted). Stay away from people who are sick with symptoms of a viral infection. Do not share items such as toothbrushes and water bottles with other people. Keep your vaccinations up to date. This includes getting a yearly flu shot. Eat a healthy diet and get plenty of rest. Contact a health care provider if: You have symptoms of a viral illness that do not go away. Your symptoms come back after going away. Your symptoms get worse. Get help right away if you have: Trouble breathing. A severe headache or a stiff neck. Severe vomiting or pain in your abdomen. These symptoms may represent a serious problem that is an emergency. Do not wait to see if the symptoms will go away. Get medical help right away. Call your local emergency services (911 in the [place] Do not drive yourself to the hospital. Summary Viruses are types of germs that can get into a person's body and cause illness. Viral illnesses can range from mild to severe. They can affect various parts of the body. Viruses can be hard to treat. There are medicines to relieve symptoms, and there are some antiviral medicines. If you were prescribed an antiviral medicine, take it as told by your health care provider. Do not stop taking the antiviral even if you start to feel better. Contact a health care provider if you have symptoms of a viral illness that do not go away. This information is not intended to replace advice given to you by your health care provider. Make sure you discuss any questions you have with your health care provider. Document Revised: 09/04/2020 Document Reviewed: 02/29/2020 [employer] Patient Education 2022 [email or web address] Follow Up Care 04/29/2023 22:52:13 With:MARVIN CUEVAS Address: [address] [place] [address] Business (1) When:Within 3 Day(s) [facility] 04-29-2023 Evaluation + Plan note Extrac landy from: Title:ED Note Author:Kan Díaz DO Date :04/29/23 Anxiety (F41.9: Anxiety diso rder, unspecified) Palpitations (R00.2: Palpitations) Viral illness (B34.9: Viral infection, unspecified) Orders: dicyclomine, 10 mg = 1 cap(s), Cap, Oral, Once, Stop date 04/30/23 0:05:00 EST, STAT, Start date 04/30/23 0:05:00 EST, 04/30/23 0:05:00 EST dicyclomine, 10 mg = 1 cap(s), Oral, QID, X 7 day(s), # 28 cap(s), Refills(s) 0, Pharmacy: [facility] #[id number], 156, cm, 04/29/23 23:04:00 EST, Height/Length Dosing, 65, kg, 04/29/23 23:04:00 EST, Weight Dosing lorazepam, 0.5 mg = 1 tab(s), Tab, Oral, Once, Stop date 04/30/23 0:04:00 EST, NOW, Start date 04/30/23 0:04:00 EST, 04/30/23 0:04:00 EST ondansetron, 4 mg = 2 mL, Injection, IV Push, Once, Stop date 04/29/23 23:03:00 EST, STAT, Start date 04/29/23 23:03:00 EST, 04/29/23 23:03:00 EST Sodium Chloride 0.9% intravenous solution, 1,000 mL, Soln-IV, IV, Once, Stop date 04/29/23 23:03:00 EST, STAT, Start date 04/29/23 23:03:00 EST, Infuse over 61, minute(s) Automated Diff Basic Metabolic Panel CBC w/ Auto Diff ECG 12 Lead Adult ED Cardiac Monitoring eGFR Hepatic Function Panel Influenza A&B Ag Lipase Level Magnesium Level Oxygen Saturation Oxygen Therapy PT & PTT Rapid COVID Antigen ([facility] [place] Saline Lock Insert Troponin 0 Hr. Troponin 3 Hr. XR Chest Single View [facility]07-20-2022 Evaluation + Plan noteExtracted from: Title:ED Note Author:Kan Díaz DO Date :11/21/21 AP (abdominal pain) (R10.9: Unspecified abdominal pain) Hypokalemia (E87.6: Hypokalemia) Nausea (R11.0: Nausea) Orders: dicyclomine, 10 mg = 1 cap(s), Cap, Oral, Once, Stop date 11/21/21 1:15:00 EDT, STAT, Start date 11/21/21 1:15:00 EDT, 11/21/21 1:15:00 EDT dicyclomine, 10 mg = 1 cap(s), Oral, QID, PRN Irritable bowel symptoms, X 7 day(s), # 30 cap(s), Refills(s) 0, Pharmacy: [facility] #[id number], 152, cm, 11/20/21 23:17:00 EDT, Height/Length Dosing, 68, kg, 11/20/21 23:17:00 EDT, Weight Dosing ondansetron, 4 mg = 1 tab(s), Oral, q8hr, PRN Nausea/Vomiting, # 16 tab(s), Refills(s) 0, Pharmacy: [facility] #[id number], 152, cm, 11/20/21 23:17:00 EDT, Height/Length Dosing, 68, kg, 11/20/21 23:17:00 EDT, Weight Dosing ondansetron, 4 mg = 1 tab(s), Tab-Dis, Oral, Once, Stop date 11/21/21 1:15:00 EDT, STAT, Start date 11/21/21 1:15:00 EDT, 11/21/21 1:15:00 EDT potassium chloride, 40 mEq = 2 tab(s), Tab-ER, Oral, Once, Stop date 11/21/21 1:15:00 EDT, STAT, Start date 11/21/21 1:15:00 EDT, 11/21/21 1:15:00 EDT Sodium Chloride 0.9% intravenous solution, Soln-IV, Misc, Once, Stop date 11/20/21 23:57:41 EDT, Physician Stop, 11/20/21 23:57:41 EDT Sodium Chloride 0.9% intravenous solution, 1,000 mL, Soln-IV, IV, Once, Stop date 11/20/21 23:44:00 EDT, STAT, Start date 11/20/21 23:44:00 EDT, Infuse over 61, minute(s) Automated Diff Basic Metabolic Panel CBC w/ Auto Diff eGFR Hepatic Function Panel Lipase Level U Beta Hcg Qual UA With Cult Reflex [facility]07-20-2022 Evaluation + Plan noteExtracted from: Title:ED Note Author:Kan Díaz DO Date :11/21/21 AP (abdominal pain) (R10.9: Unspecified abdominal pain) Orders: dicyclomine, 10 mg = 1 cap(s), Cap, Oral, Once, Stop date 11/21/21 1:15:00 EDT, STAT, Start date 11/21/21 1:15:00 EDT, 11/21/21 1:15:00 EDT dicyclomine, 10 mg = 1 cap(s), Oral, QID, PRN Irritable bowel symptoms, X 7 day(s), # 30 cap(s), Refills(s) 0, Pharmacy: [facility] #[id number], 152, cm, 11/20/21 23:17:00 EDT, Height/Length Dosing, 68, kg, 11/20/21 23:17:00 EDT, Weight Dosing ondansetron, 4 mg = 1 tab(s), Oral, q8hr, PRN Nausea/Vomiting, # 16 tab(s), Refills(s) 0, Pharmacy: [facility] #[id number], 152, cm, 11/20/21 23:17:00 EDT, Height/Length Dosing, 68, kg, 11/20/21 23:17:00 EDT, Weight Dosing ondansetron, 4 mg = 1 tab(s), Tab-Dis, Oral, Once, Stop date 11/21/21 1:15:00 EDT, STAT, Start date 11/21/21 1:15:00 EDT, 11/21/21 1:15:00 EDT potassium chloride, 40 mEq = 2 tab(s), Tab-ER, Oral, Once, Stop date 11/21/21 1:15:00 EDT, STAT, Start date 11/21/21 1:15:00 EDT, 11/21/21 1:15:00 EDT Sodium Chloride 0.9% intravenous solution, Soln-IV, Misc, Once, Stop date 11/20/21 23:57:41 EDT, Physician Stop, 11/20/21 23:57:41 EDT Sodium Chloride 0.9% intravenous solution, 1,000 mL, Soln-IV, IV, Once, Stop date 11/20/21 23:44:00 EDT, STAT, Start date 11/20/21 23:44:00 EDT, Infuse over 61, minute(s) Automated Diff Basic Metabolic Panel CBC w/ Auto Diff eGFR Hepatic Function Panel Lipase Level U Beta Hcg Qual UA With Cult Reflex [facility]07-20-2022 Hospital Discharge instructions Patient Education 11/21/2021 04:58:36 Abdominal Pain, Adult Abdominal Pain, Adult Pain in the abdomen (abdominal pain) can be caused by many things. Often, abdominal pain is not serious and it gets better with no treatment or by being treated at home. However, sometimes abdominal pain is serious. Your health care provider will ask questions about your medical history and do a physical exam to try to determine the cause of your abdominal pain. Follow these instructions at home: Medicines Take nzlo-kxf-pnqmlky and prescription medicines only as told by your health care provider. Do not take a laxative unless told by your health care provider. General instructions Watch your condition for any changes. Drink enough fluid to keep your urine pale yellow. Keep all follow-up visits as told by your health care provider. This is important. Contact a health care provider if: Your abdominal pain changes or gets worse. You are not hungry or you lose weight without trying. You are constipated or have diarrhea for more than 2 3 days. You have pain when you urinate or have a bowel movement. Your abdominal pain wakes you up at night. Your pain gets worse with meals, after eating, or with certain foods. You are vomiting and cannot keep anything down. You have a fever. You have blood in your urine. Get help right away if: Your pain does not go away as soon as your health care provider told you to expect. You cannot stop vomiting. Your pain is only in areas of the abdomen, such as the right side or the left lower portion of the abdomen. Pain on the right side could be caused by appendicitis. You have bloody or black stools, or stools that look like tar. You have severe pain, cramping, or bloating in your abdomen. You have signs of dehydration, such as: ?Dark urine, very little urine, or no urine. ?Cracked lips. ?Dry mouth. ?Sunken eyes. ?Sleepiness. ?Weakness. You have trouble breathing or chest pain. Summary Often, abdominal pain is not serious and it gets better with no treatment or by being treated at home. However, sometimes abdominal pain is serious. Watch your condition for any changes. Take xbwm-jey-xpslese and prescription medicines only as told by your health care provider. Contact a health care provider if your abdominal pain changes or gets worse. Get help right away if you have severe pain, cramping, or bloating in your abdomen. This information is not intended to replace advice given to you by your health care provider. Make sure you discuss any questions you have with your health care provider. Document Released: 01/29/2006 Document Revised: 08/30/2019 Document Reviewed: 08/30/2019 [employer] Patient Education 2019 [email or web address]. Follow Up Care 11/21/2021 04:18:04 With:Rick LOPEZ Address: [address] [place], [place] [id number]- Business (1) When:Within 3 Day(s) [facility]07[facility]-2022 Hospital Discharge instructions Patient Education 11/21/2021 01:59:00 Hypokalemia Hypokalemia Hypokalemia means that the amount of potassium in the blood is lower than normal. Potassium is a chemical (electrolyte) that helps regulate the amount of fluid in the body. It also stimulates muscle tightening (contraction) and helps nerves work properly. Normally, most of the body's potassium is inside cells, and only a very small amount is in the blood. Because the amount in the blood is so small, minor changes to potassium levels in the blood can be life-threatening. What are the causes? This condition may be caused by: Antibiotic medicine. Diarrhea or vomiting. Taking too much of a medicine that helps you have a bowel movement (laxative)can cause diarrhea and lead to hypokalemia. Chronic kidney disease (CKD). Medicines that help the body get rid of excess fluid (diuretics). Eating disorders, such as bulimia. Low magnesium levels in the body. Sweating a lot. What are the signs or symptoms? Symptoms of this condition include: Weakness. Constipation. Fatigue. Muscle cramps. Mental confusion. Skipped heartbeats or irregular heartbeat (palpitations). Tingling or numbness. How is this diagnosed? This condition is diagnosed with a blood test. How is this treated? This condition may be treated by: Taking potassium supplements by mouth. Adjusting the medicines that you take. Eating more foods that contain a lot of potassium. If your potassium level is very low, you may need to get potassium through an IV and be monitored in the hospital. Follow these instructions at home: Take cjtx-cke-mwitovn and prescription medicines only as told by your health care provider. This includes vitamins and supplements. Eat a healthy diet. A healthy diet includes fresh fruits and vegetables, whole grains, healthy fats, and lean proteins. If instructed, eat more foods that contain a lot of potassium. This includes: ?Nuts, such as peanuts and pistachios. ?Seeds, such as sunflower seeds and pumpkin seeds. ?Peas, lentils, and rivero beans. ?Whole grain and bran cereals and breads. ?Fresh fruits and vegetables, such as apricots, avocado, bananas, cantaloupe, kiwi, oranges, tomatoes, asparagus, and potatoes. ?[place] juice. ?Tomato juice. ?Red meats. ?Yogurt. Keep all follow-up visits as told by your health care provider. This is important. Contact a health care provider if you: Have weakness that gets worse. Feel your heart pounding or racing. Vomit. Have diarrhea. Have diabetes (diabetes mellitus) and you have trouble keeping your blood sugar (glucose) in your target range. Get help right away if you: Have chest pain. Have shortness of breath. Have vomiting or diarrhea that lasts for more than 2 days. Faint. Summary Hypokalemia means that the amount of potassium in the blood is lower than normal. This condition is diagnosed with a blood test. Hypokalemia may be treated by taking potassium supplements, adjusting the medicines that you take, or eating more foods that are high in potassium. If your potassium level is very low, you may need to get potassium through an IV and be monitored in the hospital. This information is not intended to replace advice given to you by your health care provider. Make sure you discuss any questions you have with your health care provider. Document Released: 04/21/2006 Document Revised: 12/02/2018 Document Reviewed: 12/02/2018 [employer] Patient Education 2020 [email or web address] 11/21/2021 01:59:00 Abdominal Pain, Adult Abdominal Pain, Adult Pain in the abdomen (abdominal pain) can be caused by many things. Often, abdominal pain is not serious and it gets better with no treatment or by being treated at home. However, sometimes abdominal pain is serious. Your health care provider will ask questions about your medical history and do a physical exam to try to determine the cause of your abdominal pain. Follow these instructions at home: Medicines Take ymvt-pkr-jhtlmcf and prescription medicines only as told by your health care provider. Do not take a laxative unless told by your health care provider. General instructions Watch your condition for any changes. Drink enough fluid to keep your urine pale yellow. Keep all follow-up visits as told by your health care provider. This is important. Contact a health care provider if: Your abdominal pain changes or gets worse. You are not hungry or you lose weight without trying. You are constipated or have diarrhea for more than 2 3 days. You have pain when you urinate or have a bowel movement. Your abdominal pain wakes you up at night. Your pain gets worse with meals, after eating, or with certain foods. You are vomiting and cannot keep anything down. You have a fever. You have blood in your urine. Get help right away if: Your pain does not go away as soon as your health care provider told you to expect. You cannot stop vomiting. Your pain is only in areas of the abdomen, such as the right side or the left lower portion of the abdomen. Pain on the right side could be caused by appendicitis. You have bloody or black stools, or stools that look like tar. You have severe pain, cramping, or bloating in your abdomen. You have signs of dehydration, such as: ?Dark urine, very little urine, or no urine. ?Cracked lips. ?Dry mouth. ?Sunken eyes. ?Sleepiness. ?Weakness. You have trouble breathing or chest pain. Summary Often, abdominal pain is not serious and it gets better with no treatment or by being treated at home. However, sometimes abdominal pain is serious. Watch your condition for any changes. Take syvg-kwf-butgmkh and prescription medicines only as told by your health care provider. Contact a health care provider if your abdominal pain changes or gets worse. Get help right away if you have severe pain, cramping, or bloating in your abdomen. This information is not intended to replace advice given to you by your health care provider. Make sure you discuss any questions you have with your health care provider. Document Released: 01/29/2006 Document Revised: 08/30/2019 Document Reviewed: 08/30/2019 [employer] Patient Education 2020 [email or web address]. Follow Up Care 11/20/2021 23:03:36 With:Rick LOPEZ Address: [address] [place], [place] [phone]- Business (1) When:Within 3 Day[facility]s) [facility] Appointment Date:07/08/2022 11:00:00 AM Scheduled Provider:MARVIN CUEVAS CNP Location:[facility] Appointment Type: Open Future Scheduled Tests Radiology* Echo Transthoracic Complete 06/03/22 [facility] [place] Evaluation noteNo assessment information available [facility] Work Phone: Hospital course Narrative No data available for this section [facility] No data available for this section [facility] Additional Instructions Bananas, rice, applesauce, toast to help formed stool Zofran for nausea vomiting Good handwashing Push fluids Rest Follow-up with your PCP call tomorrow for appointment Avoid picking, irritating left ear Tylenol or Motrin if needed for pain [facility] any [facility] Phone: Progress note No data available for this section [facility] Summary Purpose Family History No Family History Records FoundNo Family History Records Found No data available for this section No Family History Records FoundNo Family History Records FoundNo Family History Records Found Advance Directives No Advanced Directives Records Found Advance Directive Response Recorded Date/ Time Advance Directives No May 19, 2023 7:00pm Chief Complaint and Reason for Visit Chief Complaint sob Additional Source Comments Care Team (unrecognized sect ion and content) Team Status: Active Member Role Status Dates PHYSICIAN NO FAMILY Primary Care Provider Active Team Status: Inactive Member Role Status Dates PHYSICIAN NO FAMILY Primary Care Provider Active America Crow APRN Emergency Provider Active INFORMATION SOURCE (unrecogn ized section and content) DATE CREATED AUTHOR 06/05/2022 [facility] DATE CREATED AUTHOR AUTHOR'S ORGANIZ ATION 02/06/2023 [facility] DATE CREATED AUTHOR AUTHOR'S ORGANIZ ATION 05/26/2023 [facility] EPIC DATE CREATED AUTHOR AUTHOR'S ORGANIZ ATION 05/30/2023 [facility] DATE CREATED AUTHOR AUTHOR'S ORGANIZ ATION 06/21/2023 [facility] Goals (unrecognized section and content) Goals may be documented in a n alternate section FOR RECORDS PERTAINING TO PATIENTS WHO ARE OR HAVE BEEN ENROLLED IN A CHEMICAL DEPENDENCY/SUBSTANCEABUSE PROGRAM, SOME INFORMATION MAY BE OMITTED. This clinical summary was aggregated from multiple sources. Caution should be exercised in using it in the provision of clinical care. This summary normalizes information from multiple sources, and as a consequence, information in this document may materially change the coding, format and clinical context of patient data. In addition, data may be omitted in some cases. CLINICAL DECISIONS SHOULD BE BASED ON THE PRIMARY CLINICAL RECORDS. [facility] [employer] [facility]. provides no warranty or guarantee of the accuracy or completeness of information in this document.
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
[2023-06-27 00:51] LABS: Basophils Percent Auto 0.4 % (0.2-2.0); Eosinophils Absolute Auto 0.1 10^3/uL (0.0-0.7); Eosinophils Percent Auto 0.5 % (0.9-7.0); Hematocrit 42.9 % (36.0-48.0); Hemoglobin 13.5 g/dL (12.0-16.0); Immature Granulocytes Abs Auto 0.03 10^3/uL (0.00-0.03); Immature Granulocytes Pct Auto 0.3 % (0.0-0.5); Lymphocytes Absolute Auto 2.9 10^3/uL (1.2-3.8); Lymphocytes Percent Auto 25.8 % (20.5-60.0); Mean Corpuscular HGB Conc 31.5 g/dL (29.9-35.2); Mean Corpuscular Hemoglobin 30.1 pg (26.7-34.0); Mean Corpuscular Volume 95.8 fL (81.0-99.0); Mean Platelet Volume 8.1 fL (9.5-13.5); Monocytes Absolute Auto 0.8 10^3/uL (0.3-0.8); Monocytes Percent Auto 7.1 % (1.7-12.0); Neutrophils Absolute Auto 7.4 10^3/uL (1.4-6.5); Neutrophils Percent Auto 65.9 % (43.0-75.0); Platelet Count 366 10^3/uL (150-450); Red Blood Count 4.48 10^6/uL (4.20-5.40); Red Cell Distribution Width 12.6 % (11.0-15.0); White Blood Count 11.2 10^3/uL (4.0-11.0)
[2023-06-27 00:56] LABS: Anion Gap 17.4; BUN Creatinine Ratio 13.8; Calcium 9.4 mg/dL (8.5-10.1); Carbon Dioxide 23.6 mmol/L (21.0-32.0); Chloride 106 mmol/L (98-107); Estimated GFR (African America >60 (>=60); Estimated GFR (Non-African Ame >60 (>=60); Glucose 87 mg/dL (74-106); Sodium 143 mmol/L (136-145)
== END 2023-06-27 02:07 | disposition home or self-care (01) ==
PROVIDERS: Emergency Provider Internal Medicine
DX: S19.80XA Other specified injuries of unspecified part of neck, initial encounter (principal); X58.XXXA Exposure to other specified factors, initial encounter
CPT/HCPCS: 36415; 70491; 80048; 85025; 99285; Q9967